=== PATIENT | male | born 1940 | race Caucasian/White ===

== ENCOUNTER 2021-10-06 10:06 | Oncology outpatient (recurring) (ONCR) | payer MEDICARE, OTHER, SELFPAY | END 2021-10-06 23:59 | disposition home or self-care (01) | PROVIDERS: PCP Family Medicine; Visit Provider Internal Medicine Hematology & Oncology | DX: C67.8 Malignant neoplasm of overlapping sites of bladder (principal); C77.5 Secondary and unspecified malignant neoplasm of intrapelvic lymph nodes; R53.83 Other fatigue; Z79.899 Other long term (current) drug therapy | CPT/HCPCS: 99205 ==

== ENCOUNTER 2022-01-06 09:57 | Oncology outpatient (recurring) (ONCR) | payer MEDICARE, OTHER, SELFPAY ==
[2021-12-16 08:42] VITALS: BMI 28.5
[2021-12-16 08:45] LABS: Basophils % 0.6 %; Eosinophils # 0.2 10^3/uL (0.0-0.8); Eosinophils % 3.8 %; Hematocrit 41.9 % (42.0-52.0); Hemoglobin 12.9 g/dL (11.7-16.6); Lymphocytes # 1.6 10^3/uL (0.8-4.8); Lymphocytes % 31.9 %; Mean Corpuscular HGB Conc 30.8 g/dL (30.0-36.0); Mean Corpuscular Hemoglobin 29.5 pg (28.0-34.0); Mean Corpuscular Volume 95.9 fl (80-94); Mean Platelet Volume 9.8 fL (7.4-10.4); Monocytes # 0.6 10^3/uL (0.2-0.9); Monocytes % 11.6 %; Neutrophils # 2.57 10^3/uL (1.8-7.7); Neutrophils % 51.7 %; Nucleated Red Blood Cells % 0 %; Platelet Count 148 10^3/cmm (130-400); Red Blood Count 4.37 10^6/uL (4.1-5.3); Red Cell Distribution Width 12.4 % (12.1-15.1)
[2021-12-16 09:22] LABS: Alanine Aminotransferase 10 U/L (0-41); Albumin Level 3.3 g/dL (3.5-5.2); Alkaline Phosphatase 137 U/L (40-130); Aspartate Amino Transferase 11 U/L (0-40); Blood Urea Nitrogen 13 mg/dL (8-23); Calcium 8.9 mg/dL (8.5-10.5); Carbon Dioxide 32 mmol/L (22-29); Chloride 99 mmol/L (98-107); Globulin 3.4 g/dL (1.3-4.6); Glucose 152 mg/dL (65-115); Osmolality Calculated 283 mOsm/kg (285-295); Sodium 135 mmol/L (136-145); Thyroid Stimulating Hormone 19.98 uIU/mL (0.27-4.20); Total Bilirubin 0.3 mg/dL (0.15-1.2); Total Protein 6.7 g/dL (6.6-8.7)
--- NOTE | 2021-12-16 11:04 | N.ONRAD NP_ITS ---
Radiation Oncology Consultation Patient Name: Darius oKwalski Date of : 1940 Date of Service: 12/16/2021 Attending Physician: Arturo De Leon M.D. Darius Kowalski was seen in consultation this morning at the request of Brionna Macias M.D. for consideration of palliative radiotherapy for the management of a previously diagnosed bladder cancer. 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 A repeat urethral resection of the bladder tumor completed in February of 2018 reported muscle invasive disease. 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 A partial cystectomy was performed on July 16, 2018 ([id number]). A surveillance cystoscopy completed in January 2021 was suspicious for recurrence. A CT urogram identified lateral wall thickening and left pelvic lymphadenopathy. A staging PET scan ordered in March 2021 confirmed hypermetabolic activity in the left kenji-pelvis. He was prescribed carboplatin and gemcitabine between the dates of April 30, 2021 through July 27, 2021 at [facility] in [place], [place]. A repeat PET scan requested in July described no response therapy and Bavencio was started in August 2021. A surveillance PET scan (independently reviewed in [facility]) obtained on October 17, 2021 identified hypermetabolic activity in the left aspect of the sacrum with associated erosion of the anterior cortex (SUV 15.2). He was evaluated for palliative radiotherapy to the sacral metastasis. I would recommend a two-week course of palliative radiotherapy. Prior to beginning treatment, a planning CT scan will be acquired to delineate the clinical target volume. The potential toxicities of pelvic radiotherapy were reviewed. Patient has verbalized understanding like to proceed as recommended. The patient's medical treatment plan has been discussed with Brionna Macias M.D. Signed by: Dr. Arturo De Leon 12/16/2021 11:03:29 AM
--- NOTE | 2022-01-02 | CT_ITS ---
Radiation Therapy Planning CT images; total exam DLP: 966.12 mGy-cm MTDD
== END 2022-01-06 23:59 | disposition home or self-care (01) ==
PROVIDERS: Nurse Practitioner; Family Provider Family Medicine; PCP Family Medicine; Visit Provider Radiology Radiation Oncology
DX: Z51.0 Encounter for antineoplastic radiation therapy (principal); C67.8 Malignant neoplasm of overlapping sites of bladder; C77.8 Secondary and unspecified malignant neoplasm of lymph nodes of multiple regions; C79.51 Secondary malignant neoplasm of bone; R53.83 Other fatigue
CPT/HCPCS: 36591; 77290; 77295; 77300; 77334; 77387; 77412; 80053; 84443; 85025; 99205; 99214

== ENCOUNTER 2022-01-26 09:00 | Oncology outpatient (recurring) (ONCR) | payer MEDICARE, OTHER, SELFPAY ==
--- NOTE | 2022-01-10 14:06 | ONCRAD TMN_ITS ---
Radiation Oncology Treatment Management Note Patient Name: Darius Kowalski Date of : 1940 Date of Service: 01/10/2022 Attending Physician: Arturo De Leon M.D. Darius Menjivar is an 81 year-old white male of diagnosed with metastatic bladder cancer. 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 A repeat urethral resection of the bladder tumor completed in February of 2018 reported muscle invasive disease. 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 A partial cystectomy was performed on July 16, 2018 (pT2BN0). A surveillance cystoscopy completed in January 2021 was suspicious for recurrence. A CT urogram identified lateral wall thickening and left pelvic lymphadenopathy. A staging PET scan ordered in March 2021 confirmed hypermetabolic activity in the left kenji-pelvis. He was prescribed carboplatin and gemcitabine between the dates of April 30, 2021 through July 27, 2021 at [facility] in [place], [place]. A repeat PET scan requested in July described no response therapy and Bavencio was started in August 2021. A surveillance PET scan obtained on October 17, 2021 identified hypermetabolic activity in the left aspect of the sacrum with associated erosion of the anterior cortex (SUV 15.2). The patient has received 15 Gy of a prescribed 30 Gy with a 3D-INDUSTRIAL INSULATOR plan utilizing LPO/RPO wedge pair portal betancourt. Upon review of systems, his pain is controlled with a Percocet daily. On physical examination, the patient weighed 165 lbs. His temperature was 97.9 ???F and the blood pressure was 104/43 mmHg. The pulse was 77 bpm and his respiratory rate was 18. There was no erythema within the treatment betancourt. Continue palliative radiotherapy as prescribed. Signed by: Dr. Arturo De Leon 01/17/2022 1:48:33 PM
--- NOTE | 2022-01-17 13:45 | N.ONRD TS_ITS ---
Radiation OncologyTreatment Summary Patient Name: Darius Kowalski Date of : 1940 Date of Service: 01/17/2022 Attending Physician: Arturo De Leon M.D. Darius Kowalski has completed palliative radiation therapy for the management of metastatic bladder cancer. 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 A repeat urethral resection of the bladder tumor completed in February of 2018 reported muscle invasive disease. 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 A partial cystectomy was performed on July 16, 2018 (pT2BN0). A surveillance cystoscopy completed in January 2021 was suspicious for recurrence. A CT urogram identified lateral wall thickening and left pelvic lymphadenopathy. A staging PET scan ordered in March 2021 confirmed hypermetabolic activity in the left kenji-pelvis. He was prescribed carboplatin and gemcitabine between the dates of April 30, 2021 through July 27, 2021 at [facility] in [place], [place]. A repeat PET scan requested in July described no response therapy and Bavencio was started in August 2021. A surveillance PET scan obtained on October 17, 2021 identified hypermetabolic activity in the left aspect of the sacrum with associated erosion of the anterior cortex (SUV 15.2). Daily radiotherapy was administered between the dates of January 04, 2022 through January 17. A prescribed dose of 30 Gy was delivered in 10 fractions encompassing 15 elapsed days. The sacrum and lymph node mass were treated utilizing a 3-dimensional conformal radiotherapy plan with an LPO/RPO wedge pair field design. The LPO/RPO wedge pair betancourt were designed with a gantry angles of 140??? and 230??? and an enhanced dynamic wedge of 45???. The LPO field measured 6 cm x 6 cm within the X-direction and 8 cm x 8 cm within the Y-direction. The measured SSD was 89.5 cm. The field allocated 241 monitor units. The RPO field measured 6 cm x 6 cm within the X-direction and 7 cm x 7 cm within the Y-direction. The SSD measured 87.9 cm. The port apportioned 241 monitor units. All treatments were performed with the [employer] linear accelerator and an isocentric technique. The dose was calculated by Anisotropic Analytic Algorithm. A photon energy of 15 MV was prescribed with the plan normalized to deliver 100% of the prescription dose to 95% of the planning target volume. Signed by: Dr. Arturo De Leon 01/17/2022 1:44:14 PM
--- NOTE | 2022-01-17 14:23 | ONCRAD TMN_ITS ---
Radiation Oncology Treatment Management Note Patient Name: Darius Kowalski Date of : 1940 Date of Service: 01/17/2022 Attending Physician: Arturo De Leon M.D. Darius Menjivar is an 81 year-old white male of diagnosed with metastatic bladder cancer. 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 A repeat urethral resection of the bladder tumor completed in February of 2018 reported muscle invasive disease. 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 A partial cystectomy was performed on July 16, 2018 (pT2BN0). A surveillance cystoscopy completed in January 2021 was suspicious for recurrence. A CT urogram identified lateral wall thickening and left pelvic lymphadenopathy. A staging PET scan ordered in March 2021 confirmed hypermetabolic activity in the left kenji-pelvis. He was prescribed carboplatin and gemcitabine between the dates of April 30, 2021 through July 27, [address] [facility] in [place], [place]. A repeat PET scan requested in July described no response therapy and Bavencio was started in August 2021. A surveillance PET scan obtained on October 17, 2021 identified hypermetabolic activity in the left aspect of the sacrum with associated erosion of the anterior cortex (SUV 15.2). The patient has received 30 Gy of a prescribed 30 Gy with a 3D-LENS INSERTER plan utilizing LPO/RPO wedge pair portal betancourt. Upon review of systems, the pain has significantly reduced. On physical examination, the patient weighed 163 lbs. His temperature was 98.4 ???F and the blood pressure was 95/57 mmHg. The pulse was 80 bpm and his respiratory rate was 16. There was no erythema within the treatment betancourt. Palliative radiotherapy has been completed. Signed by: Dr. Arturo De Leon 01/17/2022 2:22:49 PM
[2022-01-19 10:12] LABS: Basophils % 0.4 %; Eosinophils # 0.2 10^3/uL (0.0-0.8); Eosinophils % 4.2 %; Hematocrit 38.9 % (42.0-52.0); Hemoglobin 12.3 g/dL (11.7-16.6); Lymphocytes # 0.7 10^3/uL (0.8-4.8); Mean Corpuscular HGB Conc 31.6 g/dL (30.0-36.0); Mean Corpuscular Hemoglobin 30.3 pg (28.0-34.0); Mean Corpuscular Volume 95.8 fl (80-94); Mean Platelet Volume 10.2 fL (7.4-10.4); Monocytes # 0.6 10^3/uL (0.2-0.9); Neutrophils # 2.92 10^3/uL (1.8-7.7); Neutrophils % 65.2 %; Nucleated Red Blood Cells % 0 %; Platelet Count 164 10^3/cmm (130-400); Red Blood Count 4.06 10^6/uL (4.1-5.3); White Blood Count 4.5 10^3/uL (4.0-10.0)
[2022-01-19 10:45] LABS: Alanine Aminotransferase 9 U/L (0-41); Albumin Level 3.2 g/dL (3.5-5.2); Alkaline Phosphatase 102 U/L (40-130); Anion Gap 10.2 (5-19); Aspartate Amino Transferase 13 U/L (0-40); Blood Urea Nitrogen 13 mg/dL (8-23); Calcium 8.8 mg/dL (8.5-10.5); Carbon Dioxide 33 mmol/L (22-29); Chloride 93 mmol/L (98-107); Globulin 3.5 g/dL (1.3-4.6); Glucose 256 mg/dL (65-115); Immunoglobulin IGG 1445 mg/dL (700-1600); Osmolality Calculated 283 mOsm/kg (285-295); Potassium 4.2 mmol/L (3.5-5.1); Sodium 132 mmol/L (136-145); Thyroid Stimulating Hormone 3.86 uIU/mL (0.27-4.20); Total Bilirubin 0.6 mg/dL (0.15-1.2); Total Protein 6.7 g/dL (6.6-8.7)
[2022-01-19 10:49] LABS: Hepatitis A Antibody IgM Non-Reactive (Nonreactive); Hepatitis B Core AB, Total Non-Reactive (Nonreactive); Hepatitis B Surface AB 3.5 (11.5-1000); Hepatitis B Surface Antigen Non-Reactive (Nonreactive); Hepatitis C Virus Antibody Non-Reactive (Nonreactive)
[2022-01-19 11:35] LABS: Magnesium 1.8 mg/dL (1.7-2.3)
[2022-01-26 10:00] VITALS: BMI 26.9
[2022-01-26 10:00] LABS: Basophils # 0.1 10^3/uL (0.0-0.1); Basophils % 0.9 %; Eosinophils # 0.1 10^3/uL (0.0-0.8); Eosinophils % 2.6 %; Hematocrit 40.8 % (42.0-52.0); Lymphocytes # 0.8 10^3/uL (0.8-4.8); Lymphocytes % 14.7 %; Mean Corpuscular HGB Conc 31.9 g/dL (30.0-36.0); Mean Corpuscular Hemoglobin 30.3 pg (28.0-34.0); Mean Corpuscular Volume 95.1 fl (80-94); Mean Platelet Volume 9.8 fL (7.4-10.4); Monocytes # 0.7 10^3/uL (0.2-0.9); Neutrophils # 3.73 10^3/uL (1.8-7.7); Neutrophils % 68.3 %; Nucleated Red Blood Cells % 0 %; Platelet Count 200 10^3/cmm (130-400); Red Blood Count 4.29 10^6/uL (4.1-5.3); White Blood Count 5.5 10^3/uL (4.0-10.0)
[2022-01-26 10:36] LABS: Alanine Aminotransferase 9 U/L (0-41); Albumin Level 3.3 g/dL (3.5-5.2); Alkaline Phosphatase 92 U/L (40-130); Anion Gap 11.1 (5-19); Aspartate Amino Transferase 10 U/L (0-40); Blood Urea Nitrogen 12 mg/dL (8-23); Calcium 9.1 mg/dL (8.5-10.5); Carbon Dioxide 30 mmol/L (22-29); Chloride 96 mmol/L (98-107); Globulin 3.7 g/dL (1.3-4.6); Glucose 182 mg/dL (65-115); Osmolality Calculated 280 mOsm/kg (285-295); Potassium 4.1 mmol/L (3.5-5.1); Sodium 133 mmol/L (136-145); Thyroid Stimulating Hormone 3.34 uIU/mL (0.27-4.20); Total Bilirubin 0.4 mg/dL (0.15-1.2)
[2022-01-26] MEDS: sodium chloride 0.9% 250 ML 75 ML IV (12:21)
[2022-01-26] MEDS: pembrolizumab 200 MG in sodium chloride 0.9% 250 ML 516 MG IV (12:43)
[2022-01-26] MEDS: denosumab 120 mg SDV SUBCUT (13:25)
== END 2022-01-27 09:26 | disposition home or self-care (01) ==
PROVIDERS: Internal Medicine Hematology & Oncology; PCP Family Medicine; Visit Provider Radiology Radiation Oncology
DX: C67.9 Malignant neoplasm of bladder, unspecified (principal); C77.5 Secondary and unspecified malignant neoplasm of intrapelvic lymph nodes; Z51.12 Encounter for antineoplastic immunotherapy; Z51.0 Encounter for antineoplastic radiation therapy; Z87.891 Personal history of nicotine dependence; E03.9 Hypothyroidism, unspecified; R19.7 Diarrhea, unspecified
CPT/HCPCS: 77336; 77387; 77412; 80053; 82784; 83735; 84443; 85025; 86705; 86706; 86709; 86803; 87340; 96372; 96401; 96413; 99213; 99214; J0897; J7050; J9271

== ENCOUNTER 2022-02-16 08:58 | Oncology outpatient (recurring) (ONCR) | payer MEDICARE, OTHER, SELFPAY ==
[2022-02-16 09:44] LABS: Basophils % 0.7 %; Eosinophils # 0.2 10^3/uL (0.0-0.8); Eosinophils % 4.5 %; Hematocrit 42.1 % (42.0-52.0); Lymphocytes % 23.7 %; Mean Corpuscular HGB Conc 30.9 g/dL (30.0-36.0); Mean Corpuscular Hemoglobin 29.9 pg (28.0-34.0); Mean Corpuscular Volume 96.8 fl (80-94); Mean Platelet Volume 9.9 fL (7.4-10.4); Monocytes # 0.5 10^3/uL (0.2-0.9); Monocytes % 13.5 %; Neutrophils % 57.4 %; Nucleated Red Blood Cells % 0 %; Platelet Count 162 10^3/cmm (130-400); Red Blood Count 4.35 10^6/uL (4.1-5.3); Red Cell Distribution Width 13.5 % (12.1-15.1)
[2022-02-16 10:04] LABS: Alanine Aminotransferase 10 U/L (0-41); Albumin Level 3.5 g/dL (3.5-5.2); Alkaline Phosphatase 102 U/L (40-130); Anion Gap 9.2 (5-19); Aspartate Amino Transferase 11 U/L (0-40); Blood Urea Nitrogen 12 mg/dL (8-23); Calcium 8.7 mg/dL (8.5-10.5); Carbon Dioxide 30 mmol/L (22-29); Chloride 100 mmol/L (98-107); Globulin 3.3 g/dL (1.3-4.6); Glucose 170 mg/dL (65-115); Osmolality Calculated 284 mOsm/kg (285-295); Potassium 4.2 mmol/L (3.5-5.1); Sodium 135 mmol/L (136-145); Thyroid Stimulating Hormone 4.45 uIU/mL (0.27-4.20); Total Bilirubin 0.3 mg/dL (0.15-1.2); Total Protein 6.8 g/dL (6.6-8.7)
[2022-02-16] MEDS: sodium chloride 0.9% 250 ML 75 ML IV (11:28)
[2022-02-16] MEDS: pembrolizumab 200 MG in sodium chloride 0.9% 250 ML 516 MG IV (11:53)
[2022-02-16 12:44] VITALS: BP 124/69; PULSE 77; RESP 18; TEMP 36.8; O2SAT 96
== END 2022-03-08 23:59 | disposition home or self-care (01) ==
PROVIDERS: Internal Medicine Hematology & Oncology; PCP Family Medicine; Visit Provider Radiology Radiation Oncology
DX: Z51.12 Encounter for antineoplastic immunotherapy; C67.8 Malignant neoplasm of overlapping sites of bladder; C77.8 Secondary and unspecified malignant neoplasm of lymph nodes of multiple regions; C79.51 Secondary malignant neoplasm of bone; M54.50 Low back pain, unspecified; M25.552 Pain in left hip; E03.9 Hypothyroidism, unspecified; Z79.899 Other long term (current) drug therapy; Z87.891 Personal history of nicotine dependence
CPT/HCPCS: 80053; 84443; 85025; 96413; 99214; J7050; J9271

== ENCOUNTER 2022-03-30 07:30 | Oncology outpatient (recurring) (ONCR) | payer MEDICARE, OTHER, SELFPAY ==
[2022-03-09 11:37] LABS: Basophils # 0.1 10^3/uL (0.0-0.1); Eosinophils # 0.2 10^3/uL (0.0-0.8); Eosinophils % 3.4 %; Hematocrit 43.3 % (42.0-52.0); Hemoglobin 13.5 g/dL (11.7-16.6); Lymphocytes # 1.3 10^3/uL (0.8-4.8); Lymphocytes % 26.5 %; Mean Corpuscular HGB Conc 31.2 g/dL (30.0-36.0); Mean Corpuscular Hemoglobin 30.2 pg (28.0-34.0); Mean Corpuscular Volume 96.9 fl (80-94); Mean Platelet Volume 9.6 fL (7.4-10.4); Monocytes # 0.6 10^3/uL (0.2-0.9); Neutrophils # 2.83 10^3/uL (1.8-7.7); Neutrophils % 56.7 %; Nucleated Red Blood Cells % 0 %; Platelet Count 141 10^3/cmm (130-400); Red Blood Count 4.47 10^6/uL (4.1-5.3); Red Cell Distribution Width 13.3 % (12.1-15.1)
[2022-03-09 12:05] LABS: Alanine Aminotransferase 10 U/L (0-41); Albumin Level 3.5 g/dL (3.5-5.2); Alkaline Phosphatase 89 U/L (40-130); Anion Gap 10.2 (5-19); Aspartate Amino Transferase 10 U/L (0-40); Blood Urea Nitrogen 11 mg/dL (8-23); Calcium 8.8 mg/dL (8.5-10.5); Carbon Dioxide 31 mmol/L (22-29); Chloride 99 mmol/L (98-107); Globulin 3.4 g/dL (1.3-4.6); Glucose 166 mg/dL (65-115); Osmolality Calculated 285 mOsm/kg (285-295); Potassium 4.2 mmol/L (3.5-5.1); Sodium 136 mmol/L (136-145); Thyroid Stimulating Hormone 4.83 uIU/mL (0.27-4.20); Total Bilirubin 0.3 mg/dL (0.15-1.2); Total Protein 6.9 g/dL (6.6-8.7)
[2022-03-09] MEDS: pembrolizumab 200 MG in sodium chloride 0.9% 250 ML 516 MG IV (14:17)
[2022-03-09 15:10] VITALS: BP 121/74; PULSE 84; RESP 18; TEMP 36.2; O2SAT 96
== END 2022-04-08 23:59 | disposition home or self-care (01) ==
PROVIDERS: Internal Medicine Hematology & Oncology; PCP Family Medicine; Visit Provider Radiology Radiation Oncology
DX: C67.8 Malignant neoplasm of overlapping sites of bladder (principal)
CPT/HCPCS: 80053; 84443; 85025; 96413; 99214; J7050; J9271

== ENCOUNTER → 2022-04-11 15:58 | Outpatient (BNVA) | payer MEDICARE, OTHER, SELFPAY | PROVIDERS: PCP Family Medicine; Visit Provider Orthopaedic Surgery | DX: M48.062 Spinal stenosis, lumbar region with neurogenic claudication (principal); M81.0 Age-related osteoporosis without current pathological fracture; M41.9 Scoliosis, unspecified; M48.02 Spinal stenosis, cervical region; M99.53 Intervertebral disc stenosis of neural canal of lumbar region | CPT/HCPCS: 72050; 72070; 72110; 99204 ==

== ENCOUNTER 2022-04-13 08:13 | Oncology outpatient (recurring) (ONCR) | payer MEDICARE, OTHER, SELFPAY ==
[2022-04-13 08:41] LABS: Basophils % 0.3 %; Eosinophils % 0.2 %; Hematocrit 43.9 % (42.0-52.0); Hemoglobin 13.8 g/dL (11.7-16.6); Lymphocytes # 0.8 10^3/uL (0.8-4.8); Lymphocytes % 13.3 %; Mean Corpuscular HGB Conc 31.4 g/dL (30.0-36.0); Mean Corpuscular Volume 95.4 fl (80-94); Mean Platelet Volume 9.6 fL (7.4-10.4); Monocytes # 0.1 10^3/uL (0.2-0.9); Monocytes % 1.6 %; Neutrophils # 4.89 10^3/uL (1.8-7.7); Neutrophils % 84.3 %; Nucleated Red Blood Cells % 0 %; Platelet Count 227 10^3/cmm (130-400); Red Cell Distribution Width 12.9 % (12.1-15.1); White Blood Count 5.8 10^3/uL (4.0-10.0)
[2022-04-13 09:06] LABS: Alanine Aminotransferase 8 U/L (0-41); Albumin Level 3.4 g/dL (3.5-5.2); Alkaline Phosphatase 82 U/L (40-130); Anion Gap 11.4 (5-19); Aspartate Amino Transferase 10 U/L (0-40); Blood Urea Nitrogen 12 mg/dL (8-23); Calcium 9.1 mg/dL (8.5-10.5); Carbon Dioxide 29 mmol/L (22-29); Chloride 97 mmol/L (98-107); Glucose 201 mg/dL (65-115); Osmolality Calculated 281 mOsm/kg (285-295); Potassium 4.4 mmol/L (3.5-5.1); Sodium 133 mmol/L (136-145); Total Bilirubin 0.4 mg/dL (0.15-1.2); Total Protein 7.4 g/dL (6.6-8.7)
[2022-04-13] MEDS: pembrolizumab 200 MG in sodium chloride 0.9% 250 ML 516 MG IV (10:40)
[2022-04-13 11:30] VITALS: BP 134/78; PULSE 80; RESP 16; TEMP 36.6; O2SAT 98
== END 2022-05-09 23:59 | disposition home or self-care (01) ==
PROVIDERS: PCP Family Medicine; Visit Provider Internal Medicine Hematology & Oncology
DX: Z51.12 Encounter for antineoplastic immunotherapy (principal); C67.8 Malignant neoplasm of overlapping sites of bladder; C77.8 Secondary and unspecified malignant neoplasm of lymph nodes of multiple regions; Z92.3 Personal history of irradiation; M48.061 Spinal stenosis, lumbar region without neurogenic claudication; R73.9 Hyperglycemia, unspecified; Z79.52 Long term (current) use of systemic steroids; Z79.899 Other long term (current) drug therapy
CPT/HCPCS: 80053; 85025; 96413; 99214; J7050; J9271

== ENCOUNTER 2022-04-18 11:00 | Inpatient (IN) | payer MEDICARE, OTHER, SELFPAY ==
[2022-04-18] VITALS (8 sets, daily range): BP systolic 119–128; BP diastolic 65–76; PULSE 85–108; RESP 16–18; TEMP 36.8–37; O2SAT 91–95; BMI 26.6
--- NOTE | 2022-04-18 11:31 | CT_ITS ---
WS: [id number] CT LUMBAR SPINE TECHNIQUE: Noncontrast CT of the lumbar spine with coronal and sagittal reformatted images. CLINICAL INFORMATION: metastatic pain COMPARISON: PET/CT October [address] December 2021 DLP: 1301.[address] scans at [facility] use at least one of these dose optimization techniques: automated e xposure control; mA and/or kV adjustment per patient size (includes targeted exams where dose is matc hed to clinical indication); or iterative reconstruction. FINDINGS: Destructive lesion involving the LEFT hemisacrum with associated soft tissue thickening compatible wi th metastatic disease. This appears progressed from the prior PET/CT October 17, 2021. This is similar i n appearance to the radiation therapy CT January 02, 2022 with associated bony sclerosis and fragme ntation involving the LEFT aspect of the sacrum. Soft tissue thickening appears stable along the LEFT anterior sacrum. New associated bilateral sacral fractures involving the sacral ala likely insufficiency fractures. Ad ditional midline S2 anterior cortical fracture with slight step-off. Fractures through the bilateral L5 sacralized transverse processes at the pedicle. Osteopenia. Moderate bilateral hydronephrosis with bilateral ureterectasis. This appears similar but slightly pro gressed compared to the prior PET/CT October 17, 2021. Adrenal glands are normal. Abdominal aortic aneur ysm measuring 2.7 x 2.7 cm AP by transverse. CT/CT lumbar spine wo con* [id number] IMPRESSION: 1. Destructive lesion involving the LEFT aspect of the sacrum with associated soft tissue lesion is similar in appearance to the prior radiation therapy CT S [id number]. 2. New bilateral sacral fractures likely insufficiency fractures involving the RIGHT and LEFT hemisacrum and sacral ala. 3. Additional nondisplaced fracture involving the midline anterior sacrum at S 2 with cortical step-off. 4. Additional nondisplaced fractures through the bilateral L5 sacralized trans verse processes at the pedicle may be posttraumatic, pathologic, or insufficien cy fractures 5. Moderate bilateral hydronephrosis partially visualized with ureterectasis. 6. Abdominal aortic aneurysm measuring 2.7 x 2.7 cm appears stable. Notified Hayden Mahan DO at 04/18/2022 12:36 PM.
--- NOTE | 2022-04-18 11:31 | CT_ITS ---
WS: [id number] CT THORACIC SPINE TECHNIQUE: Noncontrast CT of the thoracic spine with coronal and sagittal reformatted images. CLINICAL INFORMATION: metstatic dz COMPARISON: None. DLP: 1301.[address] scans at [facility] use at least one of these dose optimization techniques: automated e xposure control; mA and/or kV adjustment per patient size (includes targeted exams where dose is matc hed to clinical indication); or iterative reconstruction. FINDINGS: Thoracic curve convex LEFT. Moderate thoracic kyphosis. Spinal canal is patent. No high-grade central canal stenosis. Aortic calcification. Coronary calcification. Splenic granulomas. Normal GE junction . Moderate chronic emphysematous changes. Slight atelectasis in the lung bases. CT/CT thoracic spin wo con* [id number] IMPRESSION: No evidence of thoracic metastatic disease.
--- NOTE | 2022-04-18 11:34 | ED_ITS ---
HPI - Back Pain/Injury General: Chief Complaint: Back Pain/Injury Stated Complaint: Back Pain Time Seen by Provider: 04/18/22 11:18 Source: patient Mode of arrival: EMS Limitations: no limitations History of Present Illness: This patient was transported to the emergency department and is at his request from his home by EMS. He states that his back pain is worsened and it is affecting his ability to do his activities of daily living and he is decided to come to the emergency department as he hopes that someone can be forced to help control his symptoms. He has a history of bladder cancer that is metastatic to nodes. He also has apparent concomitant spinal stenosis. He has had a bladder resection as well as chemotherapy for his cancer. He states that since his bladder resection he is always had to wear a diaper because of leakage of urine. He denies any fevers or chills change in his bowel and bladder habits. He anal Nitin rectal numbness or loss of bowel control. He denies any falls. He states that he does not feel like eating because of his pain. He states he was prescribed Percocet by oncology but it did not seem to help him much so he quit taking it. MD elicited complaint: back pain Pertinent past history: prior back pain and cancer Onset (ago): month(s) Timing: progressively worsening Severity: moderate Quality: dull and aching Location: lumbar spine Radiation: none Exacerbating factors: movement Associated symptoms: Deny abdominal pain, chills, dysuria, fever(s), nausea, syncope or vomiting Review of Systems Const: Denies: fever(s) or chills Eyes: Denies: change in vision ENMT: Denies: throat pain, odynophagia, nasal discharge or nasal congestion Card: Denies: chest pain, syncope or pre-syncope Resp: Denies: dyspnea, productive cough or non-productive cough GI: Denies: abdominal pain, nausea, vomiting or diarrhea : Reports: urinary incontinence (since bladder resection); Denies: flank pain, difficulty urinating or dysuria Musc: Reports: back pain Skin/Breast: Denies: rash or pruritus Neuro: Denies: headache(s), numbness in extremities or weakness in extremities PFSH ED PFSH: Medical History 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 Family History Father CAD (coronary artery disease) age 83 Diabetes Hypertension Mother Rheumatoid arthritis Other Hyperlipidemia Denies family history of Clotting disorder Dementia Psychiatric illness Chronic kidney disease (CKD) Suicide Anesthesia complication Bleeding disorder Lung disease Cancer Stroke Social History Smoking and tobacco status: former smoker (smoked x 23 years) Alcohol intake: never Physical Exam Narrative: EXAM NARRATIVE: Patient is alert appears to be comfortable makes good eye contact speech is goal-directed and thought pattern seems linear. Const: COMMON NORMALS: no acute distress, average body habitus and patient oriented x3 ORIENTATION/CONSCIOUSNESS: Yes awake HENMT: COMMON NORMALS: normocephalic, Normal nasal mucous membranes and turbinates present and moist oral mucous membranes HEAD & SCALP: normocephalic NOSE: Normal nasal mucous membranes and turbinates present Eye: COMMON NORMALS: Equal, round and reactive pupils present, EOMs intact bilaterally and conjunctivae normal CONJUNCTIVA: Yes conjunctivae normal PUPIL: Yes Equal, round and reactive pupils present Neck/C-Spine: COMMON NORMALS: full ROM, no JVD and No carotid bruits Chest: COMMONS NORMALS: normal inspection of the chest Resp: COMMON NORMALS: normal respiratory effort and clear to auscultation bilaterally AUSCULTATION: clear to auscultation bilaterally Cardio: COMMON NORMALS: no JVD, regular rate, regular rhythm, No murmurs present (Cardio) and Peripheral pulses 2+ throughout RATE: regular rate RHYTHM: regular rhythm PERIPHERAL PULSES: Peripheral pulses 2+ throughout GI: COMMON NORMALS: Normal to inspection, nondistended, normoactive bowel sounds present, Soft to palpation, non-tender and no masses PALPATION: Yes Soft to palpation : COMMON NORMALS: Yes no CVA tenderness BLADDER/KIDNEY EXAM: Yes no CVA tenderness Back/Pelvis: COMMON NORMALS: no CVA tenderness, thoracic and lumbar spine normal to inspection, no thoracic nor lumbar tenderness and straight leg raise negative bilaterally Extremity: COMMON NORMALS: normal to inspection, full ROM, capillary refill normal, no calf tenderness and no pedal edema Neuro: COMMON NORMALS: patient oriented x3, moves all extremities, no focal motor deficits and no sensory deficits noted CRANIAL NERVES: Yes CN normal except as noted SPEECH: speech normal Psych: COMMON NORMALS: mental status grossly normal and cooperative Skin: COMMON NORMALS: no rashes or lesions noted and turgor normal GENERAL SKIN EXAM: no rashes or lesions noted and turgor normal Course Reevaluation(s): Reevaluation #1: Bedside ultrasound was used to visualize urinary bladder. It appeared to have approximately 200 mL of clear fluid. No evidence of significant distention etc. Time: 11:42 Reevaluation #2: Significant pathologic and insufficient see fractures of his pelvis and sacrum. Will consult with oncology as well as orthopedic surgery. Time: 13:00 Reevaluation #3: I discussed findings with the patient and spouse regarding his fractures and the need for repair. We discussed treatment options to include transfer to a higher level of care versus potential for surgical fixation at this facility. He voiced understanding and prefers to stay locally if possible. I had previously discussed discussed with Dr. Jarvis and I again revisited this issue with Dr. Stephens who agreed to consult and evaluate the patient for treatment. I also discussed with the attending hospitalist who agreed to admit the patient. Time: 15:28 Consultations: Consultation #1: Discussed with Dr. Jarvis orthopedics. Reviewed potential for stabilizing his pelvis however we need to discuss with oncology regarding long-term prognosis. Time: 13:48 Vital Signs: Vital signs: Vital Signs Temperature 98.2 F 04/18/22 11:02 Pulse Rate 98 04/18/22 11:02 Respiratory Rate 16 04/18/22 11:58 Blood Pressure 120/76 04/18/22 11:02 Pulse Oximetry 95 04/18/22 11:02 Oxygen Delivery Me thod 04/18/22 11:02 MDM - Back Pain/Injury Medical Decision Making Patient presented with increasing back pain over the last 2 weeks. No trauma or injury noted by patient. He does have a history of bladder cancer. Imaging today reveals insufficiency and likely pathologic fractures of his pelvis and multiple areas. These essentially are somewhat unstable and after discussion with orthopedics as well as oncology and including the patient and shared decision making it was determined the patient could be admitted to this facility for further evaluation work-up and possible fixation. Medical Records I reviewed the patient's medical records. Labs I reviewed the patient's lab results. Radiology Impressions Lumbar Spine CT 04/18/22 11:31 IMPRESSION: 1. Destructive lesion involving the LEFT aspect of the sacrum with associated soft tissue lesion is similar in appearance to the prior radiation therapy CT January 02, 2022. 2. New bilateral sacral fractures likely insufficiency fractures involving the RIGHT and LEFT hemisacrum and sacral ala. 3. Additional nondisplaced fracture involving the midline anterior sacrum at S2 with cortical step-off. 4. Additional nondisplaced fractures through the bilateral L5 sacralized transverse processes at the pedicle may be posttraumatic, pathologic, or insufficiency fractures 5. Moderate bilateral hydronephrosis partially visualized with ureterectasis. 6. Abdominal aortic aneurysm measuring 2.7 x 2.7 cm appears stable. Notified Hayden Mahan DO at 04/18/2022 12:[address] 04/18/22 11:31 IMPRESSION: No evidence of thoracic metastatic disease. Discharge Plan Discharge Patient Disposition: Admitted As Inpatient Clinical Impression: 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, Closed pelvic fracture Condition: Stable Coding Level of Care Code ED Automobile Dealer for Chg Fwd Exam Comprehensive
[2022-04-18] MEDS: morphine 4 mg/mL SDV 1 mL IM (11:58)
--- NOTE | 2022-04-18 15:06 | XRR_ITS ---
PROCEDURE INFORMATION: Exam: XR Chest Exam date and time: 04/18/2022 3:11 PM Age: 82 years old Clinical indication: Condition or disease; Other: Bladder CA; Prior surgery; Surgery type: Port TECHNIQUE: Imaging protocol: Radiologic exam of the chest. Views: 1 view. COMPARISON: CT thoracic spin wo con* [id number] 04/18/2022 11:40 AM FINDINGS: Tubes, catheters and devices: There is a right-sided chest port coursing into the right subclavian vein terminating just above the cavoatrial junction. Lungs: Unremarkable. No consolidation. Pleural spaces: Unremarkable. No pleural effusion. No pneumothorax. Heart/Mediastinum: Unremarkable. No cardiomegaly. Bones/joints: Unremarkable for age. XR/XR chest 1V portable [id number] IMPRESSION: Right-sided chest port in satisfactory position. No pneumothorax.
--- NOTE | 2022-04-18 15:07 | ECG_ITS ---
[facility] Test Date: 2022-04-18 Pat Name: Darius Kowalski Department: Room: Gender: Male Customer Marketing Intern: : 1940 Requested By: Hayden Mahan Order Number: [id number] Jon MD: Micah Arreaga M.D. Measurements Intervals [place] Rate: 96 P: 79 WA: 137 QRS: 92 QRSD: 102 T: 78 QT: 335 QTc: 423 Interpretive Statements SINUS RHYTHM BORDERLINE RIGHT AXIS DEVIATION [QRS AXIS > 90] No previous ECG available for comparison Electronically Signed On 04-18-2022 17:24:24 DRAWING TRACER by Micah Arreaga M.D. [email or web address]
[2022-04-18] MEDS: sodium chloride 0.9% 500 ML IV (16:28)
[2022-04-18 17:12] LABS: Basophils % 0.1 %; Eosinophils % 0.1 %; Hematocrit 50.9 % (42.0-52.0); Hemoglobin 16.4 g/dL (11.7-16.6); Lymphocytes % 14.5 %; Mean Corpuscular HGB Conc 32.2 g/dL (30.0-36.0); Mean Corpuscular Hemoglobin 29.9 pg (28.0-34.0); Mean Corpuscular Volume 92.9 fl (80-94); Mean Platelet Volume 9.5 fL (7.4-10.4); Monocytes # 1.7 10^3/uL (0.2-0.9); Monocytes % 12.4 %; Neutrophils # 9.91 10^3/uL (1.8-7.7); Neutrophils % 72.4 %; Nucleated Red Blood Cells % 0 %; Platelet Count 314 10^3/cmm (130-400); Red Blood Count 5.48 10^6/uL (4.1-5.3); Red Cell Distribution Width 13.2 % (12.1-15.1); White Blood Count 13.7 10^3/uL (4.0-10.0)
[2022-04-18 17:28] LABS: Alanine Aminotransferase 10 U/L (0-41); Albumin Level 3.7 g/dL (3.5-5.2); Alkaline Phosphatase 75 U/L (40-130); Anion Gap 15.2 (5-19); Aspartate Amino Transferase 14 U/L (0-40); Blood Urea Nitrogen 18 mg/dL (8-23); Calcium 9.3 mg/dL (8.5-10.5); Carbon Dioxide 28 mmol/L (22-29); Chloride 94 mmol/L (98-107); Globulin 3.6 g/dL (1.3-4.6); Glucose 143 mg/dL (65-115); Osmolality Calculated 280 mOsm/kg (285-295); Potassium 4.2 mmol/L (3.5-5.1); Sodium 133 mmol/L (136-145); Total Bilirubin 0.7 mg/dL (0.15-1.2); Total Protein 7.3 g/dL (6.6-8.7)
[2022-04-18] MEDS: morphine 4 mg/mL SDV 1 mL 1 MG IVP ×2 (19:25→23:40)
--- NOTE | 2022-04-18 19:55 | PC.NURSE ---
Pt admitted to 258 from ER. Pt completely incontinent and states that he has been down in the ER since this am and is upset that he hasn't been changed. Pt referred to Dr. English for review of pain management, pt want for maier. NO received and noted for 1) Morphine 1mg IVP q4h PRN pain 2) insert maier cath 3) collect UA. Pt and family informed of the new orders.
[2022-04-18 21:31] LABS: Bilirubin Urine Neg (Negative); Blood Urine 3+ (Negative); Glucose Urine UA Norm (Normal); Ketones Urine 1+ (Negative); Nitrate Urine Negative (Negative); Protein Urine Trace (Negative); Urine Appearance Cloudy (CLEAR); Urine Color Yellow (Yellow); Urobilinogen Urine Norm (Negative); pH Urine 6.5 (5-7)
[2022-04-18 21:32] LABS: Add Urine Culture? Yes; Add Urine Microscopic? YES; Bacteria Urine 3+ /hpf; Leukocyte Esterase Urine 2+ (Negative); RBC Urine TOO NUMEROUS TO CNT /hpf (0-2); WBC Urine TOO NUMEROUS TO CNT /hpf (0-5)
--- NOTE | 2022-04-18 22:42 | P.HP_ITS ---
Providers/Chief Complaint Admitting Physician: Milli Torres MD Primary Care Provider: Jadiel Wheat Chief Complaint: Back Pain History of Present Illness Darius Kowalski is a 82 year old male high-grade papillary urothelial carcinoma currently on treatment with 3 weekly pembrolizumab along with 3 monthly Xgeva?since January 2022. Currently no evidence of disease progression. He presented to the emergency room today due to worsening back pain over the past 2 weeks to the point where he was unable to perform his usual activities. Imaging in the emergency revealed pathologic fractures of pelvis in multiple areas. Since these are unstable plan is to proceed to surgical intervention with orthopedics. He does describe a history of fall approximately 1 month ago where he fell against a sofa and landed on the floor. Apart from the pain he denies any specific complaints at this time. Denies any chest pain dyspnea palpitations syncope Review of Systems General: Reports: 10 or more systems reviewed and unremarkable except in HPI and below Const: Denies: fever(s), chills or body aches Eyes: Denies: change in vision, blurry vision or photophobia ENMT: Reports: hoarseness; Denies: throat pain, enlarged tonsils, odynophagia or nasal congestion Card: Denies: chest pain, palpitations, irregular heart rhythm, edema, swelling of feet/ankles, lightheadedness, pre-syncope, dyspnea on exertion or orthopnea Resp: Denies: dyspnea, productive cough, non-productive cough, wheezing, stridor, pain on inspiration, change in phlegm color, hemoptysis or chest congestion GI: Denies: abdominal pain, nausea, vomiting, hematemesis, coffee ground emesis, dysphagia, heartburn, diarrhea, constipation, GI cramping, change in stool character, hematochezia or melena : Denies: flank pain, dysuria, urinary frequency, urinary urgency, urinary hesitancy or hematuria Musc: Denies: neck pain, back pain, extremity pain, joint swelling, joint warmth or deformity Neuro: Denies: headache(s), numbness in extremities, weakness in extremities, sensory changes, difficulty walking, frequent falls, dizziness, vertigo, behavioral changes, Slurred speech present or seizure-like activity Psych: Denies: anxiety, depression, suicidal ideation or homicidal ideation Endo: Denies: polyuria, polydipsia, tired all the time, cold intolerance or hot flashes Rosalio/Lymph: Denies: easy bruising or easy bleeding Medications/Allergies Home Medications Medication Instructions Recorded Confirmed Last Taken Type dorzolamide 2 % eye drops 1 drp ophthalmic (eye) BID 12/16/21 04/18/22 Unknown History gabapentin 300 mg capsule 300 mg PO BID 12/16/21 04/18/22 Unknown History glipizide 2.5 mg tablet, extended 2.5 mg PO QAM 12/16/21 04/18/22 Unknown History release 24 hr latanoprost 0.005 % eye drops 1 drp ophthalmic (eye) BEDTIME 12/16/21 04/18/22 Unknown History lisinopril 5 mg tablet 5 mg PO QAM 12/16/21 04/18/22 Unknown History lovastatin 40 mg tablet 40 mg PO QPM 12/16/21 04/18/22 Unknown History prochlorperazine maleate 10 mg 10 mg PO Q4H PRN Mild Nausea #30 01/26/22 04/18/22 Unknown Rx tablet (Compazine) tabs oxycodone-acetaminophen 5 mg-325 1 - 2 tab PO .Q4-6H PRN pain 30 04/13/22 04/18/22 Unknown Rx mg tablet (Percocet) days #60 tabs fluticasone propionate 50 2 spray intranasal DAILY PRN 04/18/22 04/18/22 Unknown History mcg/actuation nasal Allergy Symptoms spray,suspension ibuprofen 200 mg tablet 400 mg PO Q6H PRN Pain 04/18/22 04/18/22 04/17/22 History levothyroxine 50 mcg tablet 50 mcg PO QAM 04/18/22 04/18/22 Unknown History ondansetron HCl 8 mg tablet 8 mg PO Q8H PRN Nausea And Vomiting 04/18/22 04/18/22 Unknown History prednisone 20 mg tablet See Rx Instructions .Route .COMPLEX 04/18/22 04/18/22 04/17/22 History pt state has 2 tabs timolol maleate 0.5 % eye drops 1 drp ophthalmic (eye) BID 04/18/22 04/18/22 Unknown History Intraoperative Neuromonitoring #1 ea 04/19/22 Unknown Rx Allergies Allergy/AdvReac Type Severity Reaction Status Date / Time amoxicillin Allergy ALGY-Rash Verified 01/05/23 09:00 benzonatate Allergy ALGY-Rash Verified 04/13/22 09:00 Beta-Blockers Allergy ALGY-Wheezi Verified 04/13/22 09:00 (Beta-Adrenergic Bloc ng brimonidine Allergy ALGY-Swell Verified 04/13/22 09:00 Lip/Tongue/Throat guaifenesin Allergy ADR-Itching Verified 04/13/22 09:00 nitrofurantoin Allergy ALGY-Rash Verified 04/13/22 09:00 sulfamethoxazole Allergy ALGY-Rash Verified 04/13/22 09:00 [From Sulfamethoxazole-Trimethoprim] trimethoprim Allergy ALGY-Rash Verified 04/13/22 09:00 [From Sulfamethoxazole-Trimethoprim] PFSH Acute PFSH: Medical History 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 Family History Father CAD (coronary artery disease) age 83 Diabetes Hypertension Mother Rheumatoid arthritis Other Hyperlipidemia Denies family history of Clotting disorder Dementia Psychiatric illness Chronic kidney disease (CKD) Suicide Anesthesia complication Bleeding disorder Lung disease Cancer Stroke Social History Smoking and tobacco status: former smoker (smoked x 23 years) Alcohol intake: never Vitals/I&O/Wt Last Vital Signs Temp 98.6 F 04/18/22 20:00 Pulse 102 H 04/18/22 20:00 Resp 16 04/18/22 20:00 BP 128/66 04/18/22 20:00 Pulse Ox 92 04/18/22 20:00 O2 Del Method 04/18/22 20:00 04/18/22 04/18/22 04/18/22 06:59 14:59 22:59 Intake Total 500 / 500 Balance 500 / 500 Weight last 48 hrs Weight 70.307 kg Physical Exam Narrative: General: No acute distress, AO x3 HEENT: PERRLA, pupils bilaterally equal and reactive, pallors not present Chest: Normal vesicular breath sounds, no added sounds, equal good air entry bilaterally CVS: S1-S2 regular, no murmurs, no tachycardia, no gallops, no rubs Abdomen: Soft, nontender, no organomegaly, bowel sounds present Neuro: No focal deficits, no facial deformity, AO x3, power 5/5 in all limbs Urinary Catheter Management: Vincent: Cath Placed During This Visit: yes Urinary Catheter Date of Insertion: 04/18/22 Urinary Catheter Time of Insertion: 19:19 Data 04/18/22 11:12 04/18/22 11:12 Other Labs: Signed Patient: Darius Kowalski Unit #: [id number] : 1940 Age/Sex: 82 / M ADM Date: 04/18/22 Loc: ER Room/Bed: Attending Dr: Ordering Provider/Ordering MD: Hayden Mahan DO Date of Service: 04/18/22 Procedure(s): CT thoracic spin wo con* [id number] Accession Number(s): [id number] Report Number: [id number] WS: [id number] CT THORACIC SPINE TECHNIQUE: Noncontrast CT of the thoracic spine with coronal and sagittal reformatted images. CLINICAL INFORMATION: metstatic dz COMPARISON: None. DLP: 1301.[address] [facility] use at least one of these dose optimization techniques: automated exposure control; mA and/or kV adjustment per patient size (includes targeted exams where dose is matched to clinical indication); or iterative reconstruction. FINDINGS: Thoracic curve convex LEFT. Moderate thoracic kyphosis. Spinal canal is patent. No high-grade central canal stenosis. Aortic calcification. Coronary calcification. Splenic granulomas. Normal GE junction. Moderate chronic emphysematous changes. Slight atelectasis in the lung bases. CT/CT thoracic spin wo con* [id number] IMPRESSION: ? No evidence of thoracic metastatic disease. CT/CT lumbar spine wo con* [id number] IMPRESSION: ? 1.? Destructive lesion involving the LEFT aspect of the sacrum with associated soft tissue lesion is similar in appearance to the prior radiation therapy CT January 02, 2022. 2.? New bilateral sacral fractures likely insufficiency fractures involving the RIGHT and LEFT hemisacrum and sacral ala. 3.? Additional nondisplaced fracture involving the midline anterior sacrum at S2 with cortical step-off. 4.? Additional nondisplaced fractures through the bilateral L5 sacralized transverse processes at the pedicle may be posttraumatic, pathologic, or insufficiency fractures 5.? Moderate bilateral hydronephrosis partially visualized with ureterectasis. 6.? Abdominal aortic aneurysm measuring 2.7 x 2.7 cm appears stable. A&P Assessment and plan (1) Unspecified fracture of sacrum, initial encounter for closed fracture: (2) Closed pelvic fracture: (3) UTI (urinary tract infection): Plan Patient presenting today with progressively worsening back pain, found to have an unstable sacral fracture. Plan for surgical intervention tomorrow per orthopedics. Patient has a history of bladder cancer and currently this appears to be a pathological fracture. May be also contributed by steroid use recently. He denies any other current complaints such as chest pain dyspnea or palpitations, orthopnea or PND recently. No contraindication from a medical standpoint to proceed with surgical intervention. UA with multiple WBCs, negative nitrate. May be manufacturer's representative of a UTI. Patient does not rule endorse some dysuria, however uncertain if this is more related to his bladder cancer or recurrent UTI. Will obtain urine culture and use empiric ceftriaxone while awaiting culture data. Attestations Medical Necessity Statement*: Greater than 2 midnight admission is anticipated for planned surgical intervention, IV antibiotics postop care. Coding Level of Care Code Acute Greenhouse Laborer for Eber Meneses Diagnoses Unspecified fracture of sacrum, initial encounter for closed fracture S32.10XA Closed pelvic fracture S32.9XXA UTI (urinary tract infection) N39.0
--- NOTE | 2022-04-18 23:33 | PC.NURSE ---
Pt referred to Dr. English for review of UA results. Awaiting orders.
[2022-04-18] MEDS: sodium chloride 0.9% 1,000 ML 75 ML IV (23:41)
[2022-04-18] MEDS: cefTRIAXone 1,000 MG in sodium chloride 0.9% (plus) 50 ML 100 MG IV (23:52)
--- NOTE | 2022-04-18 23:55 | PC.NURSE ---
UA reviewed w/NO received and noted for 1)Rocephin 1gm IVPB q24hr. Pulled from [employer] and administered.
[2022-04-19] VITALS (15 sets, daily range): BP systolic 106–146; BP diastolic 60–78; PULSE 68–109; RESP 16–18; TEMP 36.6–36.9; O2SAT 92–97
[2022-04-19] MEDS: oxyCODONE-APAP 5-325 mg Tablet 1 TAB PO ×5 (00:59→20:35)
[2022-04-19] MEDS: morphine 4 mg/mL SDV 1 mL 1 MG IVP ×2 (05:35→09:57)
[2022-04-19] MEDS: levothyroxine 50 mcg Tablet PO (05:36)
[2022-04-19] MEDS: lisinopril 5 mg Tablet PO (05:36)
[2022-04-19 05:41] LABS: Glucose Point of Care 136 mg/dL (70-110)
[2022-04-19 05:42] LABS: Basophils % 0.2 %; Eosinophils % 0.2 %; Hematocrit 46.8 % (42.0-52.0); Hemoglobin 15.1 g/dL (11.7-16.6); Lymphocytes # 1.7 10^3/uL (0.8-4.8); Lymphocytes % 17.7 %; Mean Corpuscular HGB Conc 32.3 g/dL (30.0-36.0); Mean Platelet Volume 9.6 fL (7.4-10.4); Monocytes # 1.2 10^3/uL (0.2-0.9); Monocytes % 12.8 %; Neutrophils # 6.64 10^3/uL (1.8-7.7); Neutrophils % 68.4 %; Nucleated Red Blood Cells % 0 %; Platelet Count 222 10^3/cmm (130-400); Red Blood Count 5.03 10^6/uL (4.1-5.3); Red Cell Distribution Width 13.2 % (12.1-15.1); White Blood Count 9.7 10^3/uL (4.0-10.0)
[2022-04-19 06:09] LABS: Alanine Aminotransferase 8 U/L (0-41); Albumin Level 3.1 g/dL (3.5-5.2); Alkaline Phosphatase 63 U/L (40-130); Anion Gap 12.4 (5-19); Aspartate Amino Transferase 10 U/L (0-40); Blood Urea Nitrogen 18 mg/dL (8-23); Calcium 7.7 mg/dL (8.5-10.5); Carbon Dioxide 26 mmol/L (22-29); Chloride 99 mmol/L (98-107); Globulin 3.1 g/dL (1.3-4.6); Glucose 148 mg/dL (65-115); Osmolality Calculated 281 mOsm/kg (285-295); Potassium 4.4 mmol/L (3.5-5.1); Sodium 133 mmol/L (136-145); Total Bilirubin 0.5 mg/dL (0.15-1.2); Total Protein 6.2 g/dL (6.6-8.7)
--- NOTE | 2022-04-19 06:40 | PM.CONSULT ---
Providers/Reason For Consult Consulting Physician/Specialty*: Orthopedic spine Reason for Consult*: Low back pain Attending Physician: Milli Torres MD Primary Care Provider: Jadiel Wheat History of Present Illness History of Present Illness Darius Kowalski is a 82 year old male who presented to [facility] on 04/18/2022 with intractable low back pain. Patient has an extensive bladder cancer history. He was evaluated in room 258 with no family present after orthopedics was consulted due to his low back pain. Patient describes an event where he stumbled at home approximately 3 to 4 weeks ago where he fell against the arm of his sofa and continuing to fall down onto the sofa after that event. He describes progressive pain in his low back and buttock region that was culminating yesterday which prompted him to follow-up in the emergency room. He has had progressive weakness and pain with inability to walk or lift his left leg because of the amount of pain he is experiencing a. He describes it as sharp stabbing constant in nature. He has not found any relief sitting seems to make things worse as well as standing walking. He reports difficulty controlling his urine due to the bladder cancer history and multiple surgeries on his bladder. He denies any bowel issues. He reports weakness worse in the left leg compared to the right but both legs bother him. He ranks the pain as 7 out of 10 on the pain scale. Movement while he is laying in bed causes him increased pain primarily down the left lower extremity. He denies any loss of consciousness in the fall. Denies any neck or upper back pain. An extensive review of the patient's past medical history, surgical history, allergies, medications, family history, social history, and review of systems was completed Review of Systems Const: Denies: fever(s) or chills Eyes: Denies: change in vision ENMT: Denies: throat pain, odynophagia, nasal discharge or nasal congestion Card: Denies: chest pain, syncope or pre-syncope Resp: Denies: dyspnea, productive cough or non-productive cough GI: Denies: abdominal pain, nausea, vomiting or diarrhea : Reports: urinary incontinence (since bladder resection); Denies: flank pain, difficulty urinating or dysuria Musc: Reports: back pain Skin/Breast: Denies: rash or pruritus Neuro: Denies: headache(s), numbness in extremities or weakness in extremities Medications/Allergies Home Medications Medication Instructions Recorded Confirmed Last Taken Type dorzolamide 2 % eye drops 1 drp ophthalmic (eye) BID 12/16/21 04/18/22 Unknown History gabapentin 300 mg capsule 300 mg PO BID 12/16/21 04/18/22 Unknown History glipizide 2.5 mg tablet, extended 2.5 mg PO QAM 12/16/21 04/18/22 Unknown History release 24 hr latanoprost 0.005 % eye drops 1 drp ophthalmic (eye) BEDTIME 12/16/21 04/18/22 Unknown History lisinopril 5 mg tablet 5 mg PO QAM 12/16/21 04/18/22 Unknown History lovastatin 40 mg tablet 40 mg PO QPM 12/16/21 04/18/22 Unknown History prochlorperazine maleate 10 mg 10 mg PO Q4H PRN Mild Nausea #30 01/26/22 04/18/22 Unknown Rx tablet (Compazine) tabs oxycodone-acetaminophen 5 mg-325 1 - 2 tab PO .Q4-6H PRN pain 30 04/13/22 04/18/22 Unknown Rx mg tablet (Percocet) days #60 tabs fluticasone propionate 50 2 spray intranasal DAILY PRN 04/18/22 04/18/22 Unknown History mcg/actuation nasal Allergy Symptoms spray,suspension ibuprofen 200 mg tablet 400 mg PO Q6H PRN Pain 04/18/22 04/18/22 04/17/22 History levothyroxine 50 mcg tablet 50 mcg PO QAM 04/18/22 04/18/22 Unknown History ondansetron HCl 8 mg tablet 8 mg PO Q8H PRN Nausea And Vomiting 04/18/22 04/18/22 Unknown History prednisone 20 mg tablet See Rx Instructions .Route .COMPLEX 04/18/22 04/18/22 04/17/22 History pt state has 2 tabs timolol maleate 0.5 % eye drops 1 drp ophthalmic (eye) BID 04/18/22 04/18/22 Unknown History Allergies Allergy/AdvReac Type Severity Reaction Status Date / Time amoxicillin Allergy ALGY-Rash Verified 04/13/22 09:00 benzonatate Allergy ALGY-Rash Verified 04/13/22 09:00 Beta-Blockers Allergy ALGY-Wheezi Verified 04/13/22 09:00 (Beta-Adrenergic Bloc ng brimonidine Allergy ALGY-Swell Verified 04/13/22 09:00 Lip/Tongue/Throat guaifenesin Allergy ADR-Itching Verified 04/13/22 09:00 nitrofurantoin Allergy ALGY-Rash Verified 04/13/22 09:00 sulfamethoxazole Allergy ALGY-Rash Verified 04/13/22 09:00 [From Sulfamethoxazole-Trimethoprim] trimethoprim Allergy ALGY-Rash Verified 04/13/22 09:00 [From Sulfamethoxazole-Trimethoprim] Current Medications Generic Name Dose Route Start Last Admin Trade Name Freq PRN Reason Stop Dose Admin Sodium Chloride 1,000 mls @ 75 mls/hr 04/18/22 22:45 04/18/22 23:41 Sodium Chloride 0.9% IV 75 mls/hr .[id number] SANDY Administration Ceftriaxone Sodium 1,000 mg/ 50 mls @ 100 mls/hr 04/18/22 23:45 04/19/22 00:25 Sodium Chloride IV Infused Q24H SANDY Infusion Protocol Levothyroxine Sodium 50 mcg 04/19/22 06:00 04/19/22 05:36 Levothyroxine 50 Mcg Tablet PO 50 mcg QAM SANDY Administration Lisinopril 5 mg 04/19/22 06:00 04/19/22 05:36 Lisinopril 5 Mg Tablet PO 5 mg QAM SANDY Administration Morphine Sulfate 1 mg 04/18/22 19:18 04/19/22 05:35 Morphine 4 Mg/Ml Sdv 1 Ml IVP 1 mg Q4H PRN Administration SEVERE PAIN Oxycodone/Acetaminophen 1 tab 04/18/22 22:38 04/19/22 00:59 Oxycodone-Apap 5-325 Mg Tablet PO 1 tab .Q4-6H PRN Administration pain PFSH Acute PFSH: Medical History 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 Family History Father CAD (coronary artery disease) age 83 Diabetes Hypertension Mother Rheumatoid arthritis Other Hyperlipidemia Denies family history of Clotting disorder Dementia Psychiatric illness Chronic kidney disease (CKD) Suicide Anesthesia complication Bleeding disorder Lung disease Cancer Stroke Social History Smoking and tobacco status: former smoker (smoked x 23 years) Alcohol intake: never Vitals/I&O/Wt Last Vital Signs Temp 98.4 F 04/19/22 04:00 Pulse 86 04/19/22 06:25 Resp 16 04/19/22 05:35 BP 146/78 04/19/22 04:00 Pulse Ox 95 04/19/22 04:00 O2 Del Method 04/19/22 04:00 04/18/22 04/18/22 04/19/22 14:59 22:59 06:59 Intake Total 500 / 500 50 / 550 Output Total 300 / 300 Balance 200 / 200 50 / 250 Weight last 48 hrs Weight 155 lb Physical Exam Narrative: Patient is alert orient x3 has a good general appearance normal mood and affect. Patient was evaluated in room 258 with no family present laying supine in the bed. Appears comfortable. Moderate palpatory and percussion pain throughout the paraspinous musculature of the lumbar spine. Normal sensation to light touch through all dermatomal layers. Normal sensation light touch down both lower extremities with 4/5 motor strength throughout all motor groups. Moderate palpable pain over the SI joints bilaterally. Positive straight leg raise bilaterally worse on the left than the right. Positive logroll worse on the left than the right. skin is clear warm with normal sensation to light touch, calves are supple with no medial thigh tenderness, negative Homans' sign. No palpable lymphadenopathy bilaterally. Reflexes are 1+ and symmetric about the knees and Achilles. Dorsalis pedis and posterior tibial pulses are 1+. No palpable edema bilaterally. HENMT: COMMON NORMALS: normocephalic and atraumatic HEAD & SCALP: normocephalic and atraumatic Resp: COMMON NORMALS: normal respiratory effort Cardio: COMMON NORMALS: regular rate and regular rhythm RATE: regular rate RHYTHM: regular rhythm GI: COMMON NORMALS: Soft to palpation and non-tender PALPATION: Yes Soft to palpation : COMMON NORMALS: Yes no CVA tenderness BLADDER/KIDNEY EXAM: Yes no CVA tenderness Back/Pelvis: COMMON NORMALS: no CVA tenderness Psych: COMMON NORMALS: mental status grossly normal and cooperative Urinary Catheter Management: Vincent: Cath Placed During This Visit: yes Reason for Continuing Indwelling Catheter: Required Immobilization for Trauma or Surgery or Anesthesia Urinary Catheter Date of Insertion: 04/18/22 Urinary Catheter Time of Insertion: 19:19 Data 04/19/22 05:02 04/19/22 05:[address]: Radiologist's impression: CT/CT lumbar spine wo con* [id number] IMPRESSION: ? 1.? Destructive lesion involving the LEFT aspect of the sacrum with associated soft tissue lesion is similar in appearance to the prior radiation therapy CT January 02, 2022. 2.? New bilateral sacral fractures likely insufficiency fractures involving the RIGHT and LEFT hemisacrum and sacral ala. 3.? Additional nondisplaced fracture involving the midline anterior sacrum at S2 with cortical step-off. 4.? Additional nondisplaced fractures through the bilateral L5 sacralized transverse processes at the pedicle may be posttraumatic, pathologic, or insufficiency fractures 5.? Moderate bilateral hydronephrosis partially visualized with ureterectasis. 6.? Abdominal aortic aneurysm measuring 2.7 x 2.7 cm appears stable. 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 Given the bladder cancer history would recommend a CT scan of the pelvis with and without contrast. We will keep the patient nonweightbearing. Discussed this at length with Dr. Stephens he agrees with the above-stated plan. Following the CT scan of the pelvis gain a better understanding of treatment course. Discussed this at length with the patient he understands. More than 50% of the time spent with the patient today involved coordination of care, counseling and discussion of conservative versus surgical treatment options. Total amount of time spent with the patient was 33 minutes. 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
--- NOTE | 2022-04-19 06:53 | CT_ITS ---
WS: [id number] NONCONTRAST AND CONTRAST-ENHANCED CT PELVIS INDICATION: Sacral fractures bladder cancer COMPARISON: CT lumbar April 18, 2022 TECHNIQUE: Noncontrast and contrast-enhanced CT of the pelvis. Coronal and sagittal reformatted image s. FINDINGS: Again seen is the destructive metastatic lesion involving the LEFT hemisacrum with associat ed soft tissue thickening. Presumably this has been treated with radiation. Again this appears progre ssed from the prior PET/CT October 17, 2021. This is similar in appearance to the radiation therapy CT S eptember 2021 with associated bony sclerosis and fragmentation involving the LEFT aspect of the s acrum. Slight associated soft tissue thickening and edema LEFT anterior sacrum. Diffuse presacral edema. New associated bilateral sacral fractures involving the sacral ala likely insufficiency fractures. Addit ional midline S2 anterior cortical fracture with cortical step off. Additional fractures through the bilateral L5 sacralized transverse processes extending to the pedicl e. This is new from the prior radiation therapy CT. Osteopenia. Diffuse presacral soft tissue edema. Diffuse bladder wall thickening with air-fluid level. Calcifications involving the bladder wall. Hist ory of bladder carcinoma. Vincent catheter. Air-fluid level in the bladder. Fat-containing umbilical he rnia. Fat-containing LEFT greater than RIGHT inguinal hernias. Adrenal glands are normal. Abdominal a ortic aneurysm measuring 2.7 x 2.7 cm AP by transverse. Sigmoid diverticulosis. CT/CT pelvis wo/w con [id number] IMPRESSION: 1. Destructive previously treated metastatic lesion involving the LEFT aspect of the sacrum with associated soft tissue edema described above. 2. Bilateral sacral insufficiency fractures 3. Additional nondisplaced fracture involving the midline anterior sacrum at S 2 best seen on the sagittal imaging. 4. Additional new nondisplaced fractures through the bilateral L5 sacralized t ransverse processes extending to the pedicles bilaterally.
[2022-04-19] MEDS: pantoprazole DR 40 mg Tablet PO (08:40)
[2022-04-19] MEDS: predniSONE 20 mg Tablet PO (08:40)
[2022-04-19] MEDS: gabapentin 300 mg Capsule PO ×2 (08:41→17:40)
[2022-04-19] MEDS: iohexol 350 mg/mL 500 mL Btl (per mL) IV (09:14)
--- NOTE | 2022-04-19 10:21 | PC.CHAP ---
Pastoral Care Encounter/Spiritual Assessment Type of Contact [] Declined field services director visit [] Patient/Family/Request visit [] Outpatient visit [] Follow-up visit [] Physician referral [] Code/Alert [x] Routine visit [] Staff referral [] Actively dying [] Patient sleeping [] Family support [] [] Out of room [] Palliative care [] [] Receiving care in room [] Pre-surgical visit [] Trauma [] Long length of stay [] ICU visit [] Other: Relational/Emotional Strength [x] Patient feels connected with others/family/visitors/staff [] Distress [] Loneliness/isolation [] Abandonment Spirituality of Patient [x] Person of Reny [x] Attends Moravian of their Ren[place] [x] Believes in Prayer [x] Reads Bible or Hoahaoism materials [] There are Spiritual issues to be addressed Room Service Supervisor Interventions [x Prayer x[] Active listening [x] Non-anxious presence [x] Spiritual/emotional support [] Crisis/trauma care [] Spiritual counseling [] Bereavement support [] Provided bereavement packet [] Provided Bible/devotional materials [] Provided toy/stuffed animal, coloring book to patient or family member [] Provided Communion [] Anointing/Barto [] Salvation [x] Completed spiritual assessment [] Other: Impact on Illness or Injury [] Angry [] Fearful [] Anxious [] Often cries [] Exhaustion [] Unable to work [] Unable to attend buddhism [] Unable to walk/stand [] Unable to read [] Unable to drive [] Unable to eat/drink [] Unable to sleep [] Unable to be with family [] Patient intubated [] Other: Summary patient has pain Time spent with patient 10 min
[2022-04-19] MEDS: timolol 0.5% Op Soln 5 mL Btl 1 DROP EYE-BOTH ×2 (10:56→17:44)
[2022-04-19 11:20] LABS: Glucose Point of Care 155 mg/dL (70-110)
[2022-04-19] MEDS: sodium chloride 0.9% 1,000 ML 75 ML IV (16:45)
[2022-04-19 17:27] LABS: Glucose Point of Care 193 mg/dL (70-110)
[2022-04-19] MEDS: atorvastatin 40 mg Tablet 20 MG PO (17:41)
[2022-04-19] MEDS: insulin lispro 100 unit/1 mL SUBCUT (17:46)
--- NOTE | 2022-04-19 19:12 | PM.PN ---
Subjective Subjective: Seen and examined earlier this morning. No new complaints. CT of the pelvis was completed earlier this morning. Plan for surgical intervention tomorrow. Vitals/I&O/Wt Last Vital Signs Temp 98.3 F 04/19/22 16:00 Pulse 77 04/19/22 16:00 Resp 17 04/19/22 17:44 BP 116/60 04/19/22 16:00 Pulse Ox 92 04/19/22 16:00 O2 Del Method 04/19/22 16:00 04/19/22 04/19/22 04/19/22 06:59 14:59 22:59 Intake Total 50 / 550 1240 / 1240 Output Total 600 / 900 Balance -550 / -350 1240 / 1240 Weight last 48 hrs Weight 70.307 kg Physical Exam Narrative: General: No acute distress, AO x3 HEENT: PERRLA, pupils bilaterally equal and reactive, pallors not present Chest: Normal vesicular breath sounds, no added sounds, equal good air entry bilaterally CVS: S1-S2 regular, no murmurs, no tachycardia, no gallops, no rubs Abdomen: Soft, nontender, no organomegaly, bowel sounds present Neuro: No focal deficits, no facial deformity, AO x3, power 5/5 in all limbs Urinary Catheter Management: Vincent: Cath Placed During This Visit: yes Reason for Continuing Indwelling Catheter: Required Immobilization for Trauma or Surgery or Anesthesia Urinary Catheter Date of Insertion: 04/18/22 Urinary Catheter Time of Insertion: 19:19 Data 04/19/22 05:02 04/19/22 05:02 Other data: CT Scan Report Signed Patient: Darius Kowalski Unit #: [id number] : 1940 Age/Sex: 82 / M ADM Date: 04/18/22 Loc: [facility] Room/Bed: [facility] Attending Dr: Milli Torres MD Ordering Provider/Ordering MD: ERICA Saavedra Date of Service: 04/19/22 Procedure(s): CT pelvis wo/w con [id number] Accession Number(s): [id number] Report Number: [id number] WS: [id number] NONCONTRAST AND CONTRAST-ENHANCED CT PELVIS INDICATION: Sacral fractures bladder cancer COMPARISON: CT lumbar April 18, 2022 TECHNIQUE: Noncontrast and contrast-enhanced CT of the pelvis. Coronal and sagittal reformatted images. FINDINGS: Again seen is the destructive metastatic lesion involving the LEFT hemisacrum with associated soft tissue thickening. Presumably this has been treated with radiation. Again this appears progressed from the prior PET/CT October 17, 2021. This is similar in appearance to the radiation therapy CT January 02, 2022 with associated bony sclerosis and fragmentation involving the LEFT aspect of the sacrum. Slight associated soft tissue thickening and edema LEFT anterior sacrum. Diffuse presacral edema. New associated bilateral sacral fractures involving the sacral ala likely insufficiency fractures. Additional midline S2 anterior cortical fracture with cortical step off. Additional fractures through the bilateral L5 sacralized transverse processes extending to the pedicle. This is new from the prior radiation therapy CT. Osteopenia. Diffuse presacral soft tissue edema. Diffuse bladder wall thickening with air-fluid level. Calcifications involving the bladder wall. History of bladder carcinoma. Vincent catheter. Air-fluid level in the bladder. Fat-containing umbilical hernia. Fat-containing LEFT greater than RIGHT inguinal hernias. Adrenal glands are normal. Abdominal aortic aneurysm measuring 2.7 x 2.7 cm AP by transverse. Sigmoid diverticulosis. CT/CT pelvis wo/w con [id number] IMPRESSION: 1.? Destructive previously treated metastatic lesion involving the LEFT aspect of the sacrum with associated soft tissue edema described above. 2.? Bilateral sacral insufficiency fractures 3.? Additional nondisplaced fracture involving the midline anterior sacrum at S2 best seen on the sagittal imaging. 4.? Additional new nondisplaced fractures through the bilateral L5 sacralized transverse processes extending to the pedicles bilaterally. ? A&P Assessment and plan (1) Unspecified fracture of sacrum, initial encounter for closed fracture: (2) Closed pelvic fracture: (3) UTI (urinary tract infection): Plan Patient presenting today with progressively worsening back pain, found to have an unstable sacral fracture. Plan for surgical intervention tomorrow per orthopedics. Patient has a history of bladder cancer and currently this appears to be a pathological fracture. May be also contributed by steroid use recently. He denies any other current complaints such as chest pain dyspnea or palpitations, orthopnea or PND recently. No contraindication from a medical standpoint to proceed with surgical intervention. UA with multiple WBCs, negative nitrate. May be financial services sales representative of a UTI. Patient does not rule endorse some dysuria, however uncertain if this is more related to his bladder cancer or recurrent UTI. Will obtain urine culture and use empiric ceftriaxone while awaiting culture data. Plan for today: CT of the pelvis was completed. Plan for surgical intervention tomorrow with orthopedics. Attestations Medical Necessity Statement*: Planned surgery, postop care. Coding Level of Care Code Acute Human Resources Manager for [facility] Fwd Diagnoses Unspecified fracture of sacrum, initial encounter for closed fracture S32.10XA Closed pelvic fracture S32.9XXA UTI (urinary tract infection) N39.0
[2022-04-19] MEDS: latanoprost 0.005% Op Soln 2.5 mL Btl 1 DROP EYE-BOTH (20:59)
[2022-04-19 21:01] LABS: Glucose Point of Care 149 mg/dL (70-110)
[2022-04-20] VITALS (34 sets, daily range): BP systolic 106–173; BP diastolic 62–94; PULSE 63–102; RESP 8–23; TEMP 36.2–36.8; O2SAT 90–99
--- NOTE | 2022-04-20 | XR_ITS ---
WS: [id number] XR lumbar spine 2-3V* [id number] REASON FOR EXAM: L4 to pelvis instrumented fusion FINDINGS: Posterior pedicle screws L4 and L5, and 3 sacral/iliac screws at S2 with interconnecting rods. Surgic al appliances appear in proper position and alignment and unchanged to the intraoperative examination of 04/20/2022 at 9:11 AM. XR/XR lumbar spine 2-3V* [id number] IMPRESSION: Posterior fusion as above.
[2022-04-20] MEDS: cefTRIAXone 1,000 MG in sodium chloride 0.9% (plus) 50 ML 100 MG IV ×2 (00:20→23:44)
[2022-04-20] MEDS: oxyCODONE-APAP 5-325 mg Tablet 1 TAB PO ×2 (00:26→04:58)
--- NOTE | 2022-04-20 01:04 | PC.NURSE ---
This nurse entered the patient's room at approximately 2243. When this nurse addressed the patient, the patient stated, My needs help. This nurse stepped over to the patient's , Yessica, who was sitting in the chair in just her bra and underwear, holding her chest and stating, I can't breathe. This nurse immediately ran to grab the vital cart to check patient's oxygen saturation level. When this nurse entered the patient's room, the patient was not be breathing. This nurse yelled for another nurse to grab the crash cart and BLS was initiated in the chair. When the second nurse was present, we moved the patient in a supine position on the floor. BLS was continued and a CODE BLUE was called overhead.
[2022-04-20] MEDS: lisinopril 5 mg Tablet PO (05:00)
[2022-04-20] MEDS: levothyroxine 50 mcg Tablet PO (05:00)
[2022-04-20] MEDS: sodium chloride 0.9% 1,000 ML 75 ML IV (06:34)
--- NOTE | 2022-04-20 06:36 | W.PM.OPSUD ---
Surgery/Procedure H&P Update DATE OF PROCEDURE: April 20, 2022 DATE H&P PERFORMED: 04/19/22 CHANGES TO PREVIOUS DOCUMENTATION: Patient last night in the room. Did discuss with the patient about surgery. We decided together that it is best that we proceed with surgery soon get on with all the things he needs to do. PREOP DIAGNOSIS: Sacral insufficiency fracture, sacral U fracture PLANNED PROCEDURE: Operation Date: 04/20/22 07:00 Proposed Procedures p L4-Pelvis fusion(Not Applicable) - Farhan Stephens, DO
[2022-04-20 07:14] LABS: Glucose Point of Care 133 mg/dL (70-110)
--- NOTE | 2022-04-20 07:22 | PC.NURSE ---
surgery Pt was taken down to surgery around 0710.
--- NOTE | 2022-04-20 07:30 | ANES.PREANE2 ---
Pre-Anesthetic Assessment Height/Weight: Height 1.63 m Weight 70.307 kg Temp Pulse Resp BP Pulse Ox O2 Del Method 98.3 F 76 17 172/69 94 04/20/22 07:16 04/20/22 07:16 04/20/22 07:16 04/20/22 07:16 04/20/22 07:16 04/20/22 07:16 Preop Diagnosis: Sacral insufficiency fracture, sacral U fracture Operation Date: 04/20/22 07:00 Proposed Procedures p L4-Pelvis fusion(Not Applicable) - Farhan Stephens, Familial anesthetic complications: None Was Beta Sabas taken within 24 hours: N/A Was Clonidine taken within 24 hours: N/A Last intake: Intake Last Liquid Date 04/20/22 Last Liquid Time 02:30 Last Solid Date 04/19/22 Last Solid Time 18:00 Social No alcohol and No tobacco quit smoking 1979 Exam alert, oriented x 3, clear to auscultation bilaterally and regular rate & rhythm Airway Mallampati: Class III Comments: Comments: [facility]chell Pulmonary Chronic Obstructive Pulmonary Disease CV/HEM Hypertension Metabolic Diabetes Mellitus, Hyperlipidemia and Thyroid Disease Anesthetic Plan ASA status: 4 Anesthesia: General Risk of > 500 ml blood loss (7ml/kg in children): No Medications/Allergies Home Medications Medication Instructions Recorded Confirmed Last Taken Type dorzolamide 2 % eye drops 1 drp ophthalmic (eye) BID 12/16/21 04/18/22 Unknown History gabapentin 300 mg capsule 300 mg PO BID 12/16/21 04/18/22 Unknown History glipizide 2.5 mg tablet, extended 2.5 mg PO QAM 12/16/21 04/18/22 Unknown History release 24 hr latanoprost 0.005 % eye drops 1 drp ophthalmic (eye) BEDTIME 12/16/21 04/18/22 Unknown History lisinopril 5 mg tablet 5 mg PO QAM 12/16/21 04/18/22 Unknown History lovastatin 40 mg tablet 40 mg PO QPM 12/16/21 04/18/22 Unknown History prochlorperazine maleate 10 mg 10 mg PO Q4H PRN Mild Nausea #30 01/26/22 04/18/22 Unknown Rx tablet (Compazine) tabs oxycodone-acetaminophen 5 mg-325 1 - 2 tab PO .Q4-6H PRN pain 30 04/13/22 04/18/22 Unknown Rx mg tablet (Percocet) days #60 tabs fluticasone propionate 50 2 spray intranasal DAILY PRN 04/18/22 04/18/22 Unknown History mcg/actuation nasal Allergy Symptoms spray,suspension ibuprofen 200 mg tablet 400 mg PO Q6H PRN Pain 04/18/22 04/18/22 04/17/22 History levothyroxine 50 mcg tablet 50 mcg PO QAM 04/18/22 04/18/22 Unknown History ondansetron HCl 8 mg tablet 8 mg PO Q8H PRN Nausea And Vomiting 04/18/22 04/18/22 Unknown History prednisone 20 mg tablet See Rx Instructions .Route .COMPLEX 04/18/22 04/18/22 04/17/22 History pt state has 2 tabs timolol maleate 0.5 % eye drops 1 drp ophthalmic (eye) BID 04/18/22 04/18/22 Unknown History Intraoperative Neuromonitoring #1 ea 04/19/22 Unknown Rx Allergies Allergy/AdvReac Type Severity Reaction Status Date / Time amoxicillin Allergy ALGY-Rash Verified 04/13/22 09:00 benzonatate Allergy ALGY-Rash Verified 04/13/22 09:00 Beta-Blockers Allergy ALGY-Wheezi Verified 04/13/22 09:00 (Beta-Adrenergic Bloc ng brimonidine Allergy ALGY-Swell Verified 04/13/22 09:00 Lip/Tongue/Throat guaifenesin Allergy ADR-Itching Verified 04/13/22 09:00 nitrofurantoin Allergy ALGY-Rash Verified 04/13/22 09:00 sulfamethoxazole Allergy ALGY-Rash Verified 04/13/22 09:00 [From Sulfamethoxazole-Trimethoprim] trimethoprim Allergy ALGY-Rash Verified 04/13/22 09:00 [From Sulfamethoxazole-Trimethoprim] Current Medications Generic Name Dose Route Start Last Admin Trade Name Freq PRN Reason Stop Dose Admin Atorvastatin Calcium 20 mg 04/19/22 18:00 04/19/22 17:41 Atorvastatin 40 Mg Tablet PO 20 mg QPM SANDY Administration Gabapentin 300 mg 04/19/22 09:00 04/19/22 17:40 Gabapentin 300 Mg Capsule PO 300 mg BID SANDY Administration Sodium Chloride 1,000 mls @ 75 mls/hr 04/18/22 22:45 04/20/22 06:34 Sodium Chloride 0.9% IV 75 mls/hr .[id number] SANDY Administration Ceftriaxone Sodium 1,000 mg/ 50 mls @ 100 mls/hr 04/18/22 23:45 04/20/22 00:57 Sodium Chloride IV Infused Q24H SANDY Infusion Protocol Insulin Human Lispro 0 unit 04/19/22 18:00 04/19/22 17:46 Insulin Lispro 100 Unit/1 Ml SUBCUT 4 unit TIDWM SANDY Administration Protocol Latanoprost 1 drop 04/19/22 21:00 04/19/22 20:59 Latanoprost 0.005% Op Soln 2.5 Ml Btl EYE-BOTH 1 drop BEDTIME SANDY Administration Levothyroxine Sodium 50 mcg 04/19/22 06:00 04/20/22 05:00 Levothyroxine 50 Mcg Tablet PO 50 mcg QAM SANDY Administration Lisinopril 5 mg 04/19/22 06:00 04/20/22 05:00 Lisinopril 5 Mg Tablet PO 5 mg QAM SANDY Administration Morphine Sulfate 1 mg 04/18/22 19:18 04/19/22 09:57 Morphine 4 Mg/Ml Sdv 1 Ml IVP 1 mg Q4H PRN Administration SEVERE PAIN Oxycodone/Acetaminophen 1 tab 04/18/22 22:38 04/20/22 04:58 Oxycodone-Apap 5-325 Mg Tablet PO 1 tab .Q4-6H PRN Administration pain Pantoprazole Sodium 40 mg 04/19/22 09:00 04/19/22 08:[address] 40 Mg Tablet PO 40 mg DAILY SANDY Administration Prednisone 20 mg 04/19/22 09:00 04/19/22 08:40 Prednisone 20 Mg Tablet PO 20 mg DAILY SANDY Administration Timolol Maleate 1 drop 04/19/22 09:00 04/19/22 17:44 Timolol 0.5% Op Soln 5 Ml Btl EYE-BOTH 1 drop BID SANDY Administration PFSH Anesthesia Medical History 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 Family History Father CAD (coronary artery disease) age 83 Diabetes Hypertension Mother Rheumatoid arthritis Other Hyperlipidemia Denies family history of Clotting disorder Dementia Psychiatric illness Chronic kidney disease (CKD) Suicide Anesthesia complication Bleeding disorder Lung disease Cancer Stroke Social History Smoking and tobacco status: former smoker (smoked x 23 years) Alcohol intake: never Data Anesthesia 04/19/22 05:02 04/19/22 05:02 Short CBC 04/18/22 04/19/22 Range/Units 11:12 05:02 WBC 13.7 H 9.7 (4.0-10.0) 10^3/uL Hgb 16.4 15.1 (11.7-16.6) g/dL Hct 50.9 46.8 (42.0-52.0) % MCV 92.9 93.0 (80-94) fl Plt Count 314 222 (130-400) 10^3/cmm Neut % (Auto) 72.4 68.4 % Neut # (Auto) 9.91 H 6.64 (1.8-7.7) 10^3/uL BMP 04/18/22 04/19/22 11:12 05:02 Sodium 133 L 133 L Potassium 4.2 4.4 Chloride 94 L 99 Carbon Dioxide 28 26 BUN 18 18 Creatinine 0.6 L 0.6 L Glucose 143 H 148 H Calcium 9.3 7.7 L Liver Function 04/18/22 04/19/22 Range/Units 11:12 05:02 Total Bilirubin 0.7 0.5 (0.15-1.2) mg/dL AST 14 10 (0-40) U/L ALT 10 8 (0-41) U/L Alkaline Phosphatase 75 63 (40-130) U/L Albumin 3.7 3.1 L (3.5-5.2) g/dL Urine 04/18/22 Range/Units 19:54 Urine Color Yellow (Yellow) Urine Appearance Cloudy A (CLEAR) Urine pH 6.5 (5-7) Ur Specific Randolph 1.010 (1.005-1.030) Urine Protein Trace (Negative) Urine Glucose (UA) Norm (Normal) Urine Ketones 1+ H (Negative) Urine Nitrate Negative (Negative) Urine Bilirubin Neg (Negative) Ur Leukocyte Esterase 2+ H (Negative) Urine RBC Too numerous to cnt H (0-2) /hpf Urine WBC Too numerous to cnt H (0-5) /hpf Cardiac Studies: No Data to Display
[2022-04-20] MEDS: sodium chloride 0.9% 1,000 ML 30 ML IV (07:38)
[2022-04-20] MEDS: ceFAZolin 2,000 MG in sodium chloride 0.9% (plus) 50 ML 100 MG IV ×2 (07:41→14:48)
--- NOTE | 2022-04-20 08:32 | SUR.OPER ---
called and notified daughter of surgical start
[2022-04-20] MEDS: vancomycin 1,000 MG SDV 1000 MG XX (08:43)
[2022-04-20] MEDS: heparin, porcine 1,000 unit/mL INJ 10 mL 10000 UNIT IRRIGATION (08:43)
--- NOTE | 2022-04-20 09:23 | SUR.OPER ---
daughter notified of surgical progress
--- NOTE | 2022-04-20 09:57 | XR_ITS ---
WS: [id number] XR lumbar spine 2-3V* [id number] REASON FOR EXAM: PA/LAT Post op fusion FINDINGS: Sacral and L5 fracture. Posterior decompression with posterior pedicle screw placement at L4 and L5. 2 long obliquely placed screws at C2 across the sacroiliac joints bilaterally. There are connecting rods from the superiormos t pedicle screw to the S2 screws. Surgical appliances appear in proper position and alignment. XR/XR lumbar spine 2-3V* [id number] IMPRESSION: Posterior fusion as above without abnormality.
--- NOTE | 2022-04-20 10:04 | PM.OP ---
Operative Report Date of procedure: April 20, 2022 Pre-op diagnosis: Preop Diagnosis Sacral insufficiency fracture, sacral U fracture Post-op diagnosis: same Procedure done: 1. L4-pelvis fusion 2. L4-5 instrumentation 3. Lumbopelvic instrumentation 4. use of computer navigation/stereotactic of spine 5. biopsy of left sacral ala 6. use of allograft Surgeon: Farhan Stephens Metal Sprayer Production: Biju Valverde Metal Sprayer Production: The housekeeper/laundry assistant, Biju Valverde, PAC was needed for his expertise under the microscope. He was important and necessary throughout the procedure to complete in a safe and timely manner. He assisted with patient positioning prepping and draping tissue retraction suctioning of the operative field protection of the dural sac and tissue closure Estimated blood loss (mL): 50 Procedure: 1. L4-pelvis fusion 2. L4-5 instrumentation 3. Lumbopelvic instrumentation 4. use of computer navigation/stereotactic of spine 5. biopsy of left sacral ala 6. use of allograft Patient is brought to the operative suite after undergoing anesthesia was placed in the prone position. Neuro monitoring was used throughout the entire case. There were no issues. Patient was had all areas impingement well-padded. Patient was then prepped and draped normal sterile fashion. Skin incision made from L4 down to the sacrum. The thoracolumbar fascia was identified subperiosteal dissection was made out to the transverse processes of L4-L5 and the sacral ala. Once exposure was completed attention was then brought to placing the fiducial for the computer navigation. 2 pins were placed into the right iliac crest. The fiducial for the computer navigation was attached to these 2 pins. The pins were later removed at the end of the case. The C-arm was brought in and spun around the patient and the information from the computer was loaded from the C-arm and this was later used for placement of the pedicle screws and the iliac screws. Attention was first brought to placing the pedicle screws. The gearshift probe was used first followed by the pedicle feeler followed by placement of the screws using using computer navigation both the gearshift and the pedicle screws were done using computer navigation. Screws were placed at L4 and L5 bilaterally. Next attention was brought to placing the iliac screws. 2 iliac screws were placed on the right anterior x-rays were placed on the left. This was done using computer navigation. The gearshift probe was placed through the sacral ala across the SI joint and into the iliac wing there was a 7.5 90 mm screw and a 7.5 80 mm screw was placed on the right. Attention was then brought to the left side. Prior to placing the screw the biopsy was done. This was done using high-speed bur to open up the cortical shell with the metastatic lesion was. Pituitaries used to take tumor fragments out this was placed on [facility] and sent to the lab for evaluation of the biopsy. Next attention was brought to placing the screws. Again the gearshift probe was used to followed by the pedicle feeler followed by placement of the screw. All screws were placed then rods were attached to the screws and locked into position and caps were placed on top torqued these all down the caps were placed at L4-L5 and to the iliac screws in the right and L4-L5 and to the iliac screws on the left. Connecting the lumbar pelvic fixation. Next the lamina and facets were decorticated using high-speed bur bilaterally. And then ostial amp allograft was placed in facilitate using the sacrum to the pelvis. Wounds were irrigated prior to this and wound was then closed in layered fashion with 0 Vicryl 2-0 Vicryl and Monocryl suture. Sterile dressings were applied patient was transferred to the PACU in stable condition.
[2022-04-20] MEDS: fentaNYL 50 mcg/mL INJ 2mL IVP ×2 (10:32→10:48)
[2022-04-20 11:00] LABS: Glucose Point of Care 104 mg/dL (70-110)
--- NOTE | 2022-04-20 11:12 | PC.NURSE ---
Art line right wrist removed intact. Pressure held 10 minutes with homostasis achieved
[2022-04-20] MEDS: HYDROcodone-acetaminophen 5-325 mg Tablet PO ×2 (11:57→16:03)
--- NOTE | 2022-04-20 12:50 | ANE.PACU2 ---
Inpatient post-anesthesia follow up: Airway intact: Yes Vital signs: Temperature 97.2 F Pulse Rate 75 Respiratory Rate 18 Blood Pressure 156/73 Pulse Oximetry 98 Oxygen Delivery Me thod Nasal Cannula Oxygen Flow Rate 3 Fraction of Inspir ed Oxygen Hydration adequate: Yes Nausea and vomiting: No Pain level: 1 Mental status: Baseline
[2022-04-20] MEDS: ketorolac 30 mg/mL INJ IVP ×2 (12:51→18:32)
[2022-04-20 12:52] LABS: Glucose Point of Care 139 mg/dL (70-110)
--- NOTE | 2022-04-20 15:35 | P.PN_ITS ---
Subjective Subjective: Patient's in the room suddenly last night when she was here to visit him. She received CPR in his room. Patient grieving about this. He went through with his surgery this morning and is now s/p L4-pelvis fusion today. Vitals/I&O/Wt Last Vital Signs Temp 97.2 F L 04/20/22 12:15 Pulse 92 04/20/22 14:04 Resp 16 04/20/22 14:04 BP 156/73 04/20/22 12:15 Pulse Ox 99 04/20/22 14:04 O2 Del Method 04/20/22 14:04 O2 Flow Rate 2 04/20/22 14:04 04/20/22 04/20/22 04/20/22 06:59 14:59 22:59 Intake Total 1250 / 3350 2650 / 2650 Output Total 900 / 900 Balance 1250 / 2350 1750 / 1750 Physical Exam Narrative: General: No acute distress, AO x3 HEENT: PERRLA, pupils bilaterally equal and reactive, pallors not present Chest: Normal vesicular breath sounds, no added sounds, equal good air entry bilaterally CVS: S1-S2 regular, no murmurs, no tachycardia, no gallops, no rubs Abdomen: Soft, nontender, no organomegaly, bowel sounds present Neuro: No focal deficits, no facial deformity, AO x3, power 5/5 in all limbs Urinary Catheter Management: Vincent: Cath Placed During This Visit: yes Reason for Continuing Indwelling Catheter: Required Immobilization for Trauma or Surgery or Anesthesia Urinary Catheter Date of Insertion: 04/18/22 Urinary Catheter Time of Insertion: 19:19 Data 04/19/22 05:02 04/19/22 05:02 Micro: Microbiology 04/18/22 19:54 Urine Culture - Preliminary Urine,Clean Catch A&P Assessment and plan (1) Unspecified fracture of sacrum, initial encounter for closed fracture: (2) Closed pelvic fracture: (3) UTI (urinary tract infection): Plan Patient presenting with progressively worsening back pain, found to have an unstable sacral fracture. s/p l4-pelvis spinal fusion today. Patient has a history of bladder cancer and currently this appears to be a pathological fracture. May be also contributed by steroid use recently. Biopsies taken in OR. PT/OT assessment and treatment UA with multiple WBCs, negative nitrate. May be telephone sales representative of a UTI. Patient does endorse some dysuria, however uncertain if this is more related to his bladder cancer or recurrent UTI. Will obtain urine culture and use empiric ceftriaxone while awaiting culture data. Attestations Medical Necessity Statement*: s/p surgical intevrntion today, post op monitoing, pain control and disposition planning Coding Level of Care Code Acute Code for Chg Fwd Diagnoses Unspecified fracture of sacrum, initial encounter for closed fracture S32.10XA Closed pelvic fracture S32.9XXA UTI (urinary tract infection) N39.0
[2022-04-20 17:15] LABS: Glucose Point of Care 215 mg/dL (70-110)
[2022-04-20] MEDS: insulin lispro 100 unit/1 mL SUBCUT (18:34)
[2022-04-20] MEDS: gabapentin 300 mg Capsule PO (18:34)
[2022-04-20] MEDS: atorvastatin 40 mg Tablet 20 MG PO (18:34)
[2022-04-20] MEDS: docusate sodium 100 mg Capsule PO (18:35)
[2022-04-20] MEDS: timolol 0.5% Op Soln 5 mL Btl 1 DROP EYE-BOTH (18:38)
[2022-04-20] MEDS: latanoprost 0.005% Op Soln 2.5 mL Btl 1 DROP EYE-BOTH (20:33)
[2022-04-20] MEDS: morphine 4 mg/mL SDV 1 mL 1 MG IVP (23:58)
[2022-04-21 04:00] VITALS: BP 123/66; PULSE 81; RESP 22; TEMP 36.1; O2SAT 91
[2022-04-21] MEDS: sodium chloride 0.9% 1,000 ML 50 ML IV (04:45)
[2022-04-21] MEDS: HYDROcodone-acetaminophen 5-325 mg Tablet PO ×2 (04:57→08:57)
[2022-04-21] MEDS: levothyroxine 50 mcg Tablet PO (05:02)
[2022-04-21] MEDS: lisinopril 5 mg Tablet PO (05:02)
[2022-04-21 06:00] VITALS: PULSE 74
[2022-04-21 06:00] LABS: Basophils % 0.1 %; Eosinophils % 0.1 %; Hematocrit 39.5 % (42.0-52.0); Hemoglobin 12.3 g/dL (11.7-16.6); Lymphocytes # 1.2 10^3/uL (0.8-4.8); Lymphocytes % 11.5 %; Mean Corpuscular HGB Conc 31.1 g/dL (30.0-36.0); Mean Corpuscular Hemoglobin 29.9 pg (28.0-34.0); Mean Corpuscular Volume 95.9 fl (80-94); Mean Platelet Volume 9.6 fL (7.4-10.4); Monocytes # 1.2 10^3/uL (0.2-0.9); Neutrophils # 8.06 10^3/uL (1.8-7.7); Neutrophils % 76.6 %; Nucleated Red Blood Cells % 0 %; Platelet Count 202 10^3/cmm (130-400); Red Blood Count 4.12 10^6/uL (4.1-5.3); Red Cell Distribution Width 13.3 % (12.1-15.1); White Blood Count 10.5 10^3/uL (4.0-10.0)
[2022-04-21 06:31] LABS: Alanine Aminotransferase 13 U/L (0-41); Albumin Level 2.6 g/dL (3.5-5.2); Alkaline Phosphatase 60 U/L (40-130); Aspartate Amino Transferase 16 U/L (0-40); Blood Urea Nitrogen 15 mg/dL (8-23); Calcium 7.6 mg/dL (8.5-10.5); Carbon Dioxide 24 mmol/L (22-29); Chloride 101 mmol/L (98-107); Globulin 2.7 g/dL (1.3-4.6); Glucose 146 mg/dL (65-115); Osmolality Calculated 273 mOsm/kg (285-295); Sodium 130 mmol/L (136-145); Total Bilirubin 0.2 mg/dL (0.15-1.2); Total Protein 5.3 g/dL (6.6-8.7)
[2022-04-21 06:35] LABS: Anion Gap 9.6 (5-19); Potassium 4.6 mmol/L (3.5-5.1)
--- NOTE | 2022-04-21 06:35 | P.PN_ITS ---
Subjective Subjective: POD 1 Resting comfortably with family present. Reports improvement of his left leg pain. Back pain has improved as well. Denies any shortness of breath, chest pain, headaches. Vitals/I&O/Wt Last Vital Signs Temp 97.0 F L 04/21/22 04:00 Pulse 81 04/21/22 04:00 Resp 22 H 04/21/22 04:00 BP 123/66 04/21/22 04:00 Pulse Ox 91 04/21/22 04:00 O2 Del Method 04/21/22 04:00 O2 Flow Rate 2 04/20/22 14:04 04/20/22 04/20/22 04/21/22 14:59 22:59 06:59 Intake Total 2890 / 2890 1290 / 4180 50 / 4230 Output Total 900 / 900 772 / 1672 Balance 1989 518 / 2508 50 / 2558 Physical Exam Narrative: Patient presents alert and oriented x3 with a good general appearance normal mood and affect. Normal coordination normal stability. Mild tenderness around the incisional site with the incision appear to be clean and dry with Hemovac intact. No signs of erythema or drainage. No signs of infection. Patient denies any fevers or chills. 4/5 motor strength both lower extremities with negative straight leg raise bilaterally. Calves are supple no medial thigh tenderness. Pulses are 2+ at the dorsalis pedis and posterior tibial region. Good capillary refill throughout normal sensation light touch both lower extremities. Urinary Catheter Management: Vincent: Cath Placed During This Visit: yes Reason for Continuing Indwelling Catheter: Required Immobilization for Trauma or Surgery or Anesthesia Urinary Catheter Date of Insertion: 04/18/22 Urinary Catheter Time of Insertion: 19:19 Data 04/21/22 05:23 04/21/22 05:23 Micro: Microbiology 04/18/22 19:54 Urine Culture - Preliminary Urine,Clean Catch A&P Assessment and plan (1) Status post lumbar spinal fusion: We will discontinue the Hemovac drain. Continue to have physical therapy working with mobilization. volunteer services supervisor consult for placement. Okay from orthopedic standpoint to discharge to rehab facility when placement established. Follow-up in the office in 1 week's time for wound check. Continue incentive spirometry for pulmonary toilet. Attestations Medical Necessity Statement*: Defer to medical team Coding Level of Care Code Acute Code for Chg Fwd Diagnoses Status post lumbar spinal fusion Z98.1
[2022-04-21 07:27] LABS: Glucose Point of Care 134 mg/dL (70-110)
[2022-04-21 08:00] VITALS: BP 124/61; PULSE 78; RESP 18; TEMP 37; O2SAT 92
[2022-04-21] MEDS: docusate sodium 100 mg Capsule PO (08:56)
[2022-04-21] MEDS: predniSONE 20 mg Tablet PO (08:56)
[2022-04-21] MEDS: gabapentin 300 mg Capsule PO (08:57)
[2022-04-21] MEDS: pantoprazole DR 40 mg Tablet PO (08:57)
--- NOTE | 2022-04-21 09:49 | PM.DCS ---
Discharge Providers Date of Admission: 04/18/22 18:03 Date of Discharge: April 21, 2022 Attending Provider at Admission: Milli Torres MD Attending Provider at Discharge: Milli Torres MD Consults: CORDELIA BARTON MD/ orthopedics Primary Care Provider: Jadiel Wheat Diagnoses at Discharge Discharge Diagnosis (1) Status post lumbar spinal fusion: Status: Acute Reason for Visit Reason for Visit: Back Pain Hospital Course Hospital Course Patient presenting on 04/19/22 with progressively worsening back pain over 2 weeks, found to have an unstable sacral fracture. s/p l4-pelvis spinal fusion on 04/20. Patient has a history of bladder cancer and currently this appears to be a pathological fracture. Biopsies taken in OR. Currently pending. Patient tolerated surgery well. PT/OT assessment and treatment appreciated. UA with multiple WBCs, negative nitrate.? May be outside medical sales representative of a UTI.? Patient does endorse some dysuria, however uncertain if this is more related to his bladder cancer or recurrent UTI.? negative urine culture to date. received ceftriaxone in the hospital, transitioned to levaquin for 3 days as cx remains pending. Physical Exam Narrative: General: No acute distress, AO x3 HEENT: PERRLA, pupils bilaterally equal and reactive, pallors not present Chest: Normal vesicular breath sounds, no added sounds, equal good air entry bilaterally CVS: S1-S2 regular, no murmurs, no tachycardia, no gallops, no rubs Abdomen: Soft, nontender, no organomegaly, bowel sounds present Neuro: No focal deficits, no facial deformity, AO x3, power 5/5 in all limbs Urinary Catheter Management: Vincent: Cath Placed During This Visit: yes Reason for Continuing Indwelling Catheter: Required Immobilization for Trauma or Surgery or Anesthesia Urinary Catheter Date of Insertion: 04/18/22 Urinary Catheter Time of Insertion: 19:19 Discharge Data Studies Completed and Pending Completed Studies During Hospitalization Category Date Time Status CT lumbar spine wo con* [id number] Stat Cat Scan 04/18/22 11:[address] pelvis wo/w con [id number] Routine Cat Scan 04/19/22 06:[address] thoracic spin wo con* [id number] Stat Cat Scan 04/18/22 11:31 Completed XR chest 1V portable [id number] Stat Exams 04/18/22 15:06 Completed XR lumbar spine 2-3V* [id number] Routine Exams 04/20/22 Completed XR lumbar spine 2-3V* [id number] Routine Exams 04/20/22 09:57 Completed Pending at discharge Category Date Time Status SARS Covid-2 Antigen Stat Lab 04/21/22 08:49 Uncollected Urine Culture Routine Lab 04/18/22 19:54 Results Pathology: Surgical [PTH] Routine Pth 04/20/22 09:38 Received Radiology Impressions Lumbar Spine CT 04/18/22 11:31 IMPRESSION: 1. Destructive lesion involving the LEFT aspect of the sacrum with associated soft tissue lesion is similar in appearance to the prior radiation therapy CT January 02, 2022. 2. New bilateral sacral fractures likely insufficiency fractures involving the RIGHT and LEFT hemisacrum and sacral ala. 3. Additional nondisplaced fracture involving the midline anterior sacrum at S2 with cortical step-off. 4. Additional nondisplaced fractures through the bilateral L5 sacralized transverse processes at the pedicle may be posttraumatic, pathologic, or insufficiency fractures 5. Moderate bilateral hydronephrosis partially visualized with ureterectasis. 6. Abdominal aortic aneurysm measuring 2.7 x 2.7 cm appears stable. Notified Hayden Mahan DO at 04/18/2022 12:[address] 04/18/22 11:31 IMPRESSION: No evidence of thoracic metastatic disease. Chest X-Ray 04/18/22 15:06 IMPRESSION: Right-sided chest port in satisfactory position. No pneumothorax. Pelvis CT 04/19/22 06:53 IMPRESSION: 1. Destructive previously treated metastatic lesion involving the LEFT aspect of the sacrum with associated soft tissue edema described above. 2. Bilateral sacral insufficiency fractures 3. Additional nondisplaced fracture involving the midline anterior sacrum at S2 best seen on the sagittal imaging. 4. Additional new nondisplaced fractures through the bilateral L5 sacralized transverse processes extending to the pedicles bilaterally. Lumbar Spine X-Ray 04/20/22 09:57 IMPRESSION: Posterior fusion as above without abnormality. Laboratory Results WBC 10.5 10^3/uL (4.0-10.0) H 04/21/22 05:23 RBC 4.12 10^6/uL (4.1-5.3) 04/21/22 05:23 Hgb 12.3 g/dL (11.7-16.6) 04/21/22 05: Hct 39.5 % (42.0-52.0) L 04/21/22 05:23 MCV 95.9 fl (80-94) H 04/21/22 05:23 MCH 29.9 pg (28.0-34.0) 04/21/22 05: MCHC 31.1 g/dL (30.0-36.0) 04/21/22 05:23 RDW 13.3 % (12.1-15.1) 04/21/22 05:23 Plt Count 202 10^3/cmm (130-400) 04/21/22 05:23 MPV 9.6 fL (7.4-10.4) 04/21/22 05:23 Neut % (Auto) 76.6 % 04/21/22 05:23 Lymph % (Auto) 11.5 % 04/21/22 05:23 [place] % (Auto) 11.0 % 04/21/22 05:23 Eos % (Auto) 0.1 % 04/21/22 05:23 Baso % (Auto) 0.1 % 04/21/22 05:23 Neut # (Auto) 8.06 10^3/uL (1.8-7.7) H 04/21/22 05:23 Lymph # (Auto) 1.2 10^3/uL (0.8-4.8) 04/21/22 05:23 [place] # (Auto) 1.2 10^3/uL (0.2-0.9) H 04/21/22 05:23 Eos # (Auto) 0.0 10^3/uL (0.0-0.8) 04/21/22 05:23 Baso # (Auto) 0.0 10^3/uL (0.0-0.1) 04/21/22 05:23 Nucleated RBC % (auto) 0 % 04/21/22 05: Nucleated RBCs # 0.0 /100WBC 04/21/22 05:23 Sodium 130 mmol/L (136-145) L 04/21/22 05:23 Potassium 4.6 mmol/L (3.5-5.1) 04/21/22 05:23 Chloride 101 mmol/L (98-107) 04/21/22 05:23 Carbon Dioxide 24 mmol/L (22-29) 04/21/22 05:23 Anion Gap 9.6 (5-19) 04/21/22 05:23 BUN 15 mg/dL (8-23) 04/21/22 05:23 Creatinine 0.5 mg/dL (0.7-1.2) L 04/21/22 05:23 GFR Calculation Not Reportable 04/21/22 05:23 Glucose 146 mg/dL (65-115) H 04/21/22 05:23 POC Glucose 134 mg/dL (70-110) H 04/21/22 07:17 Calculated Osmolality 273 mOsm/kg (285-295) L 04/21/22 05:23 Calcium 7.6 mg/dL (8.5-10.5) L 04/21/22 05:23 Total Bilirubin 0.2 mg/dL (0.15-1.2) 04/21/22 05: AST 16 U/L (0-40) 04/21/22 05: ALT 13 U/L (0-41) 04/21/22 05:23 Alkaline Phosphatase 60 U/L (40-130) 04/21/22 05:23 Total Protein 5.3 g/dL (6.6-8.7) L 04/21/22 05:23 Albumin 2.6 g/dL (3.5-5.2) L 04/21/22 05:23 Globulin 2.7 g/dL (1.3-4.6) 04/21/22 05:23 Urine Color Yellow (Yellow) 04/18/22 19:54 Urine Appearance Cloudy (CLEAR) A 04/18/22 19:54 Urine pH 6.5 (5-7) 04/18/22 19:54 Ur Specific [place] 1.010 (1.005-1.030) 04/18/22 19:54 Urine Protein Trace (Negative) 04/18/22 19:54 Urine Glucose (UA) Norm (Normal) 04/18/22 19:54 Urine Ketones 1+ (Negative) H 04/18/22 19:54 Urine Blood 3+ (Negative) H 04/18/22 19:54 Urine Nitrate Negative (Negative) 04/18/22 19:54 Urine Bilirubin Neg (Negative) 04/18/22 19:54 Urine Urobilinogen Norm mg/dL (Negative) 04/18/22 19:54 Ur Leukocyte Esterase 2+ (Negative) H 04/18/22 19:54 Urine RBC Too numerous to cnt /hpf (0-2) H 04/18/22 19:54 Urine WBC Too numerous to cnt /hpf (0-5) H 04/18/22 19:54 Ur Squamous Epith Cells None /hpf (0-5) 04/18/22 19:54 Amorphous Sediment Not Reportable 04/18/22 19:54 Urine Bacteria 3+ /hpf (NONE) H 04/18/22 19:54 Blood Type AB Negative 04/20/22 07:35 Rho(D) Type Negative 04/20/22 07:35 Antibody Screen Negative 04/20/22 07:35 Vitals Last Vital Signs Temp 98.6 F 04/21/22 08:00 Pulse 78 04/21/22 08:00 Resp 18 04/21/22 08:00 BP 124/61 04/21/22 08:00 Pulse Ox 92 04/21/22 08:00 O2 Del Method 04/21/22 04:00 O2 Flow Rate 2 04/20/22 14:04 Discharge Plan Discharge Patient Disposition: Xfer SNF Condition: Stable Prescriptions: New pantoprazole 40 mg Tablet,Delayed Release (Dr/Ec) 40 mg PO DAILY 30 Days Qty: 30 0RF levofloxacin 500 mg tablet 500 mg PO DAILY 3 Days Qty: 3 0RF Continued lovastatin 40 mg tablet 40 mg PO QPM glipizide 2.5 mg tablet extended release 24hr 2.5 mg PO QAM lisinopril 5 mg tablet 5 mg PO QAM gabapentin 300 mg capsule 300 mg PO BID latanoprost 0.005 % drops 1 drp ophthalmic (eye) BEDTIME dorzolamide 2 % drops 1 drp ophthalmic (eye) BID Rx Instructions: both eyes oxycodone-acetaminophen [Percocet] 5-325 mg tablet 1 - 2 tab PO .Q4-6H PRN (Reason: pain) 30 Days Qty: 60 0RF (DME) Intraoperative Neuromonitoring See Rx Instructions .Route .MEDSUPPLY Qty: 1 0RF Rx Instructions: As directed. prochlorperazine maleate [Compazine] 10 mg tablet 10 mg PO Q4H PRN (Reason: Mild Nausea) Qty: 30 3RF ondansetron HCl 8 mg tablet 8 mg PO Q8H PRN (Reason: Nausea And Vomiting) ibuprofen 200 mg Tablet 400 mg PO Q6H PRN (Reason: Pain) timolol maleate 0.5 % drops 1 drp ophthalmic (eye) BID Rx Instructions: each eye fluticasone propionate 50 mcg/actuation spray,suspension 2 spray INTRANASAL DAILY PRN (Reason: Allergy Symptoms) prednisone 20 mg tablet See Rx Instructions .ROUTE .COMPLEX Rx Instructions: 60mg on day 1,2,3 40mg on day 4,5 20mg on day 6,7 levothyroxine 50 mcg tablet 50 mcg PO QAM Discharge Orders: Discharge Order (Routine); Ordered 04/21/22 Ordered By: Milli Torres Referrals: Jadiel Wheat [Primary Care Provider] - Discharge Diet: Advance as tolerated Discharge Activity: Limit activity as instructed Patient Instructions: Opioid Safety Activity Restrictions/Additional Instructions: Thank you for choosing [facility] for your care! The following is a list of instructions, from your provider, to follow upon your discharge to ensure you have the optimal recovery from your recent injury or surgery. Follow-up care is a cope part of your treatment and safety. Be sure to make and go to all appointments and call your doctor if you are having problems. If you do not already have a follow-up appointment made, call Dr. Barton's] office in the next 1-3 days to make follow up appointment for 1 weeks at [phone]. It is also a good idea to know your test results and keep a list of the medicines you take. Medications will be prescribed for you at your provider's discretion. These medications are to be used as instructed; if they are taken more often that prescribed they will not be refilled early and in most cases will not be refilled at all. > When a refill is needed, you should contact [facility] 2-3 business days before your prescription runs out. Medications will NOT be refilled by police communications dispatcher providers after hours! > Many pain medications contain Tylenol (Acetaminophen). Do not consume more than 4,000 mg of Tylenol per day in total with any combination of medications. > Pain medications can cause constipation. Please use an over the counter stool softener as directed, while taking pain medications. Consult your local pharmacist with questions or recommendations on stool softeners. If constipation persists, contact our office or your primary care provider. > While under our care, you are not to receive pain medications or other controlled substances from any other provider unless our office is notified and approves. Any attempts to do so will result in refusal to prescribe any further pain medications and possible dismissal from our practice. ? Walking is essential for the healing process after surgery. We would like you to slowly advance your walking. This should be done on relatively flat clear ground (inside or out) or can be done on a treadmill. Remember this goal does not have to happen all at once, slowly increase your distance and duration. This can be broken into more more than one walk per day as tolerated. Patients who walk as directed after surgery rarely require Physical Therapy. In the unlikely event this issue arises your provider will direct hospital staff to make the appropriate arrangements. ? No lifting over 5 pounds {a gallon of milk) or bending/twisting until further notice. Each of these activities places an unnecessary amount of stress onto the body and can impede the delicate healing process. > Instead of bending at the waist, keep your back straight and bend at the knees. > Instead of twisting your torso, keep your back straight and turn your entire body with your feet. ? You may sleep in any position which makes you comfortable. Many patients find comfort sleeping in a reclining chair. It is not abnormal to have difficulty sleeping for the first several weeks following your surgery. We recommend trying Benadry! or Tylenol PM as directed to help with your sleeping difficulties. Both medications are over the counter and available without prescription. ? NO SMOKING!!! Smoking dramatically increases the probability of developing postoperative wound infections. ? Common complaints after lumbar and/or thoracic spine surgery include, but are not limited to: numbness and/or tingling in the legs, pain around the incision and surrounding tissues, muscle spasms, or stiffness of the middle to low back. Contact our office if these symptoms persist or if an acute change occurs. ? No driving for the first 3-5days, and not while taking narcotics until seen at your follow-up appointment and cleared. There are no restrictions for riding on short trips, however if you take a longer trip, arrangements should be made to make regular stops to get out of the vehicle and stretch . ? Swelling is an unfortunate event that will take place with any surgery and is the primary source of your postoperative discomfort. While walking and regular approved activities helps control inflammation, there are additional steps you can take to minimize swelling. > Place ice over the surgical site and surrounding tissue for twenty minutes, followed by applying a low/medium heat (heating pad) for an additional twenty minutes every 1-2 hours as needed for painrelief. > You may use of over the counter anti-inflammatory medications (Ibuprofen, Motrin, Aleve, Advil, etc) as directed on the package label. These types of medicines will significantly reduce the amount of discomfort you experience after surgery from swelling. It should be noted that if you have and allergy to any of these medications, or a history of ulcers or kidney disease you should consult you primary care provider prior to starting these medications. Discharge Attestations Time Spent in Discharge Care*: greater than 30 min Quality Metrics Clinical Quality Measures [ No reported AMI, CVA or VTE this stay] Coding Level of Care Code Acute g FW TN note Diagnoses Status post lumbar spinal fusion Z98.1
[2022-04-21 10:58] LABS: SARS Covid-2 Antigen negative (Negative)
--- NOTE | 2022-04-21 11:21 | PC.NURSE ---
Hemovac drain removed, dressing clean, dry, and intact.
[2022-04-21] MEDS: timolol 0.5% Op Soln 5 mL Btl 1 DROP EYE-BOTH (11:34)
--- NOTE | 2022-04-21 11:49 | PC.SOCIAL ---
Pg 2 IMM Explained to pt Pg 2 IMM. No questions voiced. Provided pt a copy. Initialed, dated, & timed a copy & placed in chart.
[2022-04-21 12:33] LABS: Glucose Point of Care 218 mg/dL (70-110)
[2022-04-21 13:07] VITALS: BP 124/61; PULSE 78; RESP 18; TEMP 37; O2SAT 92
== END 2022-04-21 13:09 | disposition skilled nursing facility (03) | DRG 454 ==
LOC: ER 15:06 → MEDSURG 18:04
PROVIDERS: Family Medicine; Orthopaedic Surgery; Admitting Provider Student in an Organized Health Care Education/Training Program; Emergency Provider Emergency Medicine; PCP Family Medicine; Visit Provider Student in an Organized Health Care Education/Training Program
PROC: 0SG00KJ Fusion of Lumbar Vertebral Joint with Nonautologous Tissue Substitute, Posterior Approach, Anterior Column, Open Approach (ICD-10-PCS; principal; 2022-04-20 07:00)
DX: M84.550A Pathological fracture in neoplastic disease, pelvis, initial encounter for fracture (principal); C77.5 Secondary and unspecified malignant neoplasm of intrapelvic lymph nodes; C79.51 Secondary malignant neoplasm of bone; N39.0 Urinary tract infection, site not specified; C67.9 Malignant neoplasm of bladder, unspecified; W01.0XXA Fall on same level from slipping, tripping and stumbling without subsequent striking against object, initial encounter; Z92.3 Personal history of irradiation; Z79.84 Long term (current) use of oral hypoglycemic drugs; Z79.891 Long term (current) use of opiate analgesic; Z79.52 Long term (current) use of systemic steroids; Z79.899 Other long term (current) drug therapy; Z87.891 Personal history of nicotine dependence
CPT/HCPCS: 36415; 36416; 36592; 51702; 71045; 72100; 72128; 72131; 72194; 76000; 80053; 81001; 82962; 85025; 86850; 86900; 87086; 87426; 88307; 88311; 93005; 96360; 96372; 97116; 97161; 97530; 99285; C1713; J0690; J0696; J1100; J1644; J1815; J1885; J2270; J2370; J2405; J2704; J2710; J3010; J3370; J3490; J7030; J7040; J7512; Q9967

== ENCOUNTER → 2022-05-04 14:02 | Outpatient (BNVA) | payer MEDICARE, OTHER, SELFPAY | PROVIDERS: PCP Family Medicine; Visit Provider Orthopaedic Surgery | DX: Z47.89 Encounter for other orthopedic aftercare (principal); Z98.1 Arthrodesis status | CPT/HCPCS: 99024 ==

== ENCOUNTER 2022-05-13 09:23 | Outpatient (CLI) | payer MEDICARE, OTHER, SELFPAY ==
[2022-05-13 10:58] LABS: Anion Gap 15.6 (5-19); Blood Urea Nitrogen 21 mg/dL (8-23); Calcium 8.8 mg/dL (8.5-10.5); Carbon Dioxide 28 mmol/L (22-29); Chloride 85 mmol/L (98-107); Glucose 225 mg/dL (65-115); Osmolality Calculated 266 mOsm/kg (285-295); Potassium 5.6 mmol/L (3.5-5.1); Sodium 123 mmol/L (136-145)
== END 2022-05-13 09:24 | disposition home or self-care (01) ==
PROVIDERS: PCP Family Medicine; Visit Provider Family Medicine
DX: M62.81 Muscle weakness (generalized) (principal)
CPT/HCPCS: 80048

== ENCOUNTER 2022-05-15 16:45 | Inpatient (IN) | payer MEDICARE, OTHER, SELFPAY ==
[2022-05-15] VITALS (7 sets, daily range): BP systolic 103–123; BP diastolic 56–89; PULSE 97–107; RESP 15–18; TEMP 36.8–37.1; O2SAT 93–95; BMI 24.9
--- NOTE | 2022-05-15 16:51 | ED_ITS ---
HPI - General Adult General: Chief complaint: Recheck/Abnormal Lab/Rx Stated complaint: LOW SODIUM AND HIGH K Time Seen by Provider: 05/15/22 16:51 History of Present Illness: Mr. Kowalski is an 82-year-old gentleman with complex past medical history presenting to the emergency department for abnormal labs. He reports noticing perhaps some mild weakness and poor appetite though denies any other focal changes. Labs earlier today revealed hyponatremia and hyperkalemia and he was referred to the emergency department for such. Intensity of symptoms is moderate. Course has persisted. No other specific changes in health, exacerbating, or alleviating factors identified. 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 Status post lumbar spinal fusion Family History Father CAD (coronary artery disease) age 83 Diabetes Hypertension Mother Rheumatoid arthritis Other Hyperlipidemia Denies family history of Clotting disorder Dementia Psychiatric illness Chronic kidney disease (CKD) Suicide Anesthesia complication Bleeding disorder Lung disease Cancer Stroke Social History Smoking and tobacco status: former smoker (smoked x 23 years) Alcohol intake: never Physical Exam Const: COMMON NORMALS: patient oriented x3 and alert GENERAL APPEARANCE: cooperative and well developed HENMT: COMMON NORMALS: normocephalic and atraumatic HEAD & SCALP: normocephalic and atraumatic THROAT: posterior oropharynx normal Eye: COMMON NORMALS: conjunctivae normal CONJUNCTIVA: Yes conjunctivae normal SCLERA: sclerae normal Neck/C-Spine: COMMON NORMALS: supple GENERAL: Yes trachea midline Resp: COMMON NORMALS: clear to auscultation bilaterally EFFORT & INSPECTION: Yes able to speak in complete sentences AUSCULTATION: clear to auscultation bilaterally Cardio: COMMON NORMALS: regular rate and regular rhythm RATE: regular rate RHYTHM: regular rhythm GI: COMMON NORMALS: Soft to palpation PALPATION: Yes Soft to palpation and No Tenderness to palpation present (GI) Extremity: GENERAL: Yes normal exam except as noted and No edema Neuro: COMMON NORMALS: patient oriented x3, CN's II-XII intact bilaterally, moves all extremities, no focal motor deficits and no sensory deficits noted SENSORIUM/ORIENTATION: Yes alert and No Orientation impaired Psych: COMMON NORMALS: mental status grossly normal and Normal thought process present THOUGHT PROCESS: Normal thought process present Course Vital Signs: Vital signs: Vital Signs Temperature 98.3 F 05/18/22 13:55 Pulse Rate 88 05/18/22 13:55 Respiratory Rate 18 05/18/22 13:55 Blood Pressure 153/68 05/18/22 13:55 Pulse Oximetry 97 05/18/22 13:55 Oxygen Delivery Me thod 05/18/22 11:57 [facility] - General Adult Medical Decision Making 82-year-old gentleman presenting for abnormal labs. Mildly symptomatic however no focal deficits. Exam as above. Patient is nontoxic. EKG notable for sinus rhythm, normal axis and intervals, incomplete right bundle branch block with nonspecific ST segment abnormalities, no STEMI. Labs with no significant hematologic abnormalities. Metabolic panel with hyponatremia and hyperkalemia, renal function is preserved. Urinalysis is pending. Chest x-ray with no lobar consolidation or pneumothorax. IV fluids given. Most likely etiology of patient's symptoms is electrolyte derangement resulting in metabolic encephalopathy. The results of ED evaluation were discussed with the patient including plan for admission due to requirement for level of care not available if discharged to prevent significant worsening/deterioration. Patient agreeable with plan. Discussed with hospitalist service who was agreeable to admit patient. Medical Records I reviewed the patient's medical records. Lab Data I reviewed the patient's lab results. 05/18/22 04:54 05/18/22 04:54 Radiology Impressions Chest X-Ray 05/15/22 20:08 IMPRESSION: No acute findings. Laboratory Results WBC 7.2 10^3/uL (4.0-10.0) 05/15/22 17:47 RBC 4.86 10^6/uL (4.1-5.3) 05/15/22 17:47 Hgb 14.5 g/dL (11.7-16.6) 05/15/22 17:47 Hct 43.6 % (42.0-52.0) 05/15/22 17:47 MCV 89.7 fl (80-94) 05/15/22 17:47 MCH 29.8 pg (28.0-34.0) 05/15/22 17:47 MCHC 33.3 g/dL (30.0-36.0) 05/15/22 17:47 RDW 13.1 % (12.1-15.1) 05/15/22 17:47 Plt Count 269 10^3/cmm (130-400) 05/15/22 17:47 MPV 9.4 fL (7.4-10.4) 05/15/22 17:47 Neut % (Auto) 59.0 % 05/15/22 17:47 Lymph % (Auto) 21.5 % 05/15/22 17:47 [place] % (Auto) 14.3 % 05/15/22 17:47 Eos % (Auto) 3.0 % 05/15/22 17:47 Baso % (Auto) 0.7 % 05/15/22 17:47 Neut # (Auto) 4.26 10^3/uL (1.8-7.7) 05/15/22 17:47 Lymph # (Auto) 1.6 10^3/uL (0.8-4.8) 05/15/22 17:47 [place] # (Auto) 1.0 10^3/uL (0.2-0.9) H 05/15/22 17:47 Eos # (Auto) 0.2 10^3/uL (0.0-0.8) 05/15/22 17:47 Baso # (Auto) 0.1 10^3/uL (0.0-0.1) 05/15/22 17:47 Nucleated RBC % (auto) 0 % 05/15/22 17:47 Nucleated RBCs # 0.0 /100WBC 05/15/22 17:47 Sodium 118 mmol/L (136-145) L* 05/15/22 17:47 Potassium 5.6 mmol/L (3.5-5.1) H 05/15/22 17:47 Chloride 82 mmol/L (98-107) L 05/15/22 17:47 Carbon Dioxide 29 mmol/L (22-29) 05/15/22 17:47 Anion Gap 12.6 (5-19) 05/15/22 17:47 BUN 24 mg/dL (8-23) H 05/15/22 17:47 Creatinine 0.8 mg/dL (0.7-1.2) 05/15/22 17:47 GFR Calculation Not Reportable 05/15/22 17:47 Glucose 124 mg/dL (65-115) H 05/15/22 17:47 Serum Osmolality 262 mOsm/kg (278-305) L 05/15/22 17:47 Calculated Osmolality 251 mOsm/kg (285-295) L 05/15/22 17:47 Calcium 9.3 mg/dL (8.5-10.5) 05/15/22 17:47 Discharge Plan Discharge Patient Disposition: Admitted As Inpatient Admit Provider: Emeli Acharya Clinical Impression: Hyponatremia, Hyperkalemia, Generalized weakness, Metabolic encephalopathy Condition: Stable Discharge Diet: Regular and Diabetic Discharge Activity: Resume usual activity and Increase activity as tolerated Coding Level of Care Code ED [employer] for Eber Meneses
--- NOTE | 2022-05-15 17:09 | ECG_ITS ---
[facility] Test Date: 2022-05-15 Pat Name: Darius Kowalski Department: Room: Gender: Male Senior Network Administrator: : 1940 Requested By: Emir Lopez Order Number: [id number] Webb MD: Praveena Dotson M.D. Measurements Intervals [place] Rate: 98 P: 75 MT: 152 QRS: 83 QRSD: 101 T: 77 QT: 317 QTc: 405 Interpretive Statements SINUS RHYTHM INCOMPLETE RIGHT BUNDLE BRANCH BLOCK [90+ ms QRS DURATION, TERMINAL R IN V1/V2, 40+ ms S IN I/aVL/V4/V5/V6] INTERPRETATION BASED ON A DEFAULT AGE OF 40 YEARS Compared to ECG 04/18/2022 15:25:38 Incomplete right bundle-branch block now present Electronically Signed On 05-15-2022 20:05:34 [employer] ARTIST by Praveena Dotson M.D. [email or web address]
[2022-05-15 17:55] LABS: Basophils # 0.1 10^3/uL (0.0-0.1); Basophils % 0.7 %; Eosinophils # 0.2 10^3/uL (0.0-0.8); Hematocrit 43.6 % (42.0-52.0); Hemoglobin 14.5 g/dL (11.7-16.6); Lymphocytes # 1.6 10^3/uL (0.8-4.8); Lymphocytes % 21.5 %; Mean Corpuscular HGB Conc 33.3 g/dL (30.0-36.0); Mean Corpuscular Hemoglobin 29.8 pg (28.0-34.0); Mean Corpuscular Volume 89.7 fl (80-94); Mean Platelet Volume 9.4 fL (7.4-10.4); Monocytes % 14.3 %; Neutrophils # 4.26 10^3/uL (1.8-7.7); Nucleated Red Blood Cells % 0 %; Platelet Count 269 10^3/cmm (130-400); Red Blood Count 4.86 10^6/uL (4.1-5.3); Red Cell Distribution Width 13.1 % (12.1-15.1); White Blood Count 7.2 10^3/uL (4.0-10.0)
[2022-05-15 18:14] LABS: Anion Gap 12.6 (5-19); Blood Urea Nitrogen 24 mg/dL (8-23); Calcium 9.3 mg/dL (8.5-10.5); Carbon Dioxide 29 mmol/L (22-29); Chloride 82 mmol/L (98-107); Glucose 124 mg/dL (65-115); Osmolality Calculated 251 mOsm/kg (285-295); Potassium 5.6 mmol/L (3.5-5.1)
[2022-05-15 18:19] LABS: Sodium 118 mmol/L (136-145)
[2022-05-15] MEDS: sodium chloride 0.9% 1,000 ML 100 ML IV (19:52)
--- NOTE | 2022-05-15 20:08 | XRR_ITS ---
PROCEDURE INFORMATION: Exam: XR Chest Exam date and time: 05/15/2022 8:28 PM Age: 82 years old Clinical indication: Other: Low sodium and high potasium; Additional info: Baseline TECHNIQUE: Imaging protocol: Radiologic exam of the chest. Views: 1 view. COMPARISON: CR XR chest 1V portable [id number] 04/18/2022 3:11 PM FINDINGS: Tubes, catheters and devices: Stable right Iaauug-G-Gctd with tip over the mid SVC. Lungs: Atelectasis in the left lung base. The lungs are otherwise clear. Pleural spaces: Unremarkable. No pleural effusion. No pneumothorax. Heart/Mediastinum: Unremarkable. No cardiomegaly. Diaphragm: Stable elevation of the left diaphragm. Bones/joints: Unremarkable. XR/XR chest 1V portable [id number] IMPRESSION: No acute findings.
--- NOTE | 2022-05-15 20:11 | P.HP_ITS ---
Providers/Chief Complaint Admitting Physician: Emeli Acharya MD Primary Care Provider: Jadiel Wheat Chief Complaint: LOW SODIUM AND HIGH K History of Present Illness Darius Kowalski is a 82 year old male with past medical history of metastatic cancer of bladder, recent unstable sacral fracture which was noted to be a pathological fracture with recent spinal fusion done on 04/20/1903/28/2023 and eventually discharged to a intermediate had repeat labs done routinely as an outpatient and was noted to be hyponatremic and hyperkalemic presented to the hospital today for generalized weakness. At discharge at previous hospital stay on 21 April patient did have a UTI for which she was placed on Levaquin for 3 days. Eventually urine culture did not show any growth. He has also been having poor appetite and weakness but otherwise denies any other complaints of abdominal pain, nausea, vomiting, diarrhea. On arrival blood pressure 123/89, respirate 18, pulse 98, temperature 98.7, saturating 93% on room air. EKG showed sinus rhythm. WBC normal. Labs remarkable for sodium 118, potassium 5.6, chloride 82, BUN 24, creatinine 0.8, osmolality 251. 2 days prior his labs showed sodium 123, potassium 5.6, chloride 85. ER started patient on 100 cc normal saline per hour. Medications/Allergies Home Medications Medication Instructions Recorded Confirmed Last Taken Type dorzolamide 2 % eye drops 1 drp ophthalmic (eye) BID 12/16/21 05/04/22 Unknown History gabapentin 300 mg capsule 300 mg PO BID 12/16/21 05/04/22 Unknown History glipizide 2.5 mg tablet, extended 2.5 mg PO QAM 12/16/21 05/04/22 Unknown History release 24 hr latanoprost 0.005 % eye drops 1 drp ophthalmic (eye) BEDTIME 12/16/21 05/04/22 Unknown History lisinopril 5 mg tablet 5 mg PO QAM 12/16/21 05/04/22 Unknown History lovastatin 40 mg tablet 40 mg PO QPM 12/16/21 05/04/22 Unknown History prochlorperazine maleate 10 mg 10 mg PO Q4H PRN Mild Nausea #30 01/26/22 05/04/22 Unknown Rx tablet (Compazine) tabs oxycodone-acetaminophen 5 mg-325 1 - 2 tab PO .Q4-6H PRN pain 30 04/13/22 05/04/22 Unknown Rx mg tablet (Percocet) days #60 tabs fluticasone propionate 50 2 spray intranasal DAILY PRN 04/18/22 05/04/22 Unknown History mcg/actuation nasal Allergy Symptoms spray,suspension ibuprofen 200 mg tablet 400 mg PO Q6H PRN Pain 04/18/22 05/04/22 04/17/22 History levothyroxine 50 mcg tablet 50 mcg PO QAM 04/18/22 05/04/22 Unknown History ondansetron HCl 8 mg tablet 8 mg PO Q8H PRN Nausea And Vomiting 04/18/22 05/04/22 Unknown History prednisone 20 mg tablet See Rx Instructions .Route .COMPLEX 04/18/22 05/04/22 04/17/22 History pt state has 2 tabs timolol maleate 0.5 % eye drops 1 drp ophthalmic (eye) BID 04/18/22 05/04/22 Unknown History Intraoperative Neuromonitoring #1 ea 04/20/22 05/04/22 Unknown Rx pantoprazole 40 mg tablet,delayed 40 mg PO DAILY 30 days #30 tabs 04/21/22 05/04/22 Unknown Rx release Allergies Allergy/AdvReac Type Severity Reaction Status Date / Time amoxicillin Allergy ALGY-Rash Verified 05/04/22 14:54 benzonatate Allergy ALGY-Rash Verified 05/04/22 14:54 Beta-Blockers Allergy ALGY-Wheezi Verified 05/04/22 14:54 (Beta-Adrenergic Bloc ng brimonidine Allergy ALGY-Swell Verified 05/04/22 14:54 Lip/Tongue/Throat guaifenesin Allergy ADR-Itching Verified 05/04/22 14:54 nitrofurantoin Allergy ALGY-Rash Verified 05/04/22 14:54 sulfamethoxazole Allergy ALGY-Rash Verified 05/04/22 14:54 [From Sulfamethoxazole-Trimethoprim] trimethoprim Allergy ALGY-Rash Verified 05/04/22 14:54 [From Sulfamethoxazole-Trimethoprim] PFSH Acute PFSH: Medical History 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 Family History Father CAD (coronary artery disease) age 83 Diabetes Hypertension Mother Rheumatoid arthritis Other Hyperlipidemia Denies family history of Clotting disorder Dementia Psychiatric illness Chronic kidney disease (CKD) Suicide Anesthesia complication Bleeding disorder Lung disease Cancer Stroke Social History Smoking and tobacco status: former smoker (smoked x 23 years) Alcohol intake: never Vitals/I&O/Wt Last Vital Signs Temp 98.7 F 05/15/22 16:57 Pulse 97 05/15/22 20:03 Resp 16 05/15/22 20:03 BP 103/56 05/15/22 20:03 Pulse Ox 95 05/15/22 20:03 Weight last 48 hrs Weight 65.771 kg Physical Exam Narrative: General: Alert oriented x3, patient seen laying in bed appearing comfortable at this time saturating 95% on room air. HEENT: Normocephalic, atraumatic, EOMI, breathing comfortably. Cardio: Regular rate rhythm, normal S1-S2, .Mediport present on right side of chest Respiratory: CTA b/l, no wheezes or ronchi GI: Abdomen soft, nontender, nondistended, bowel sounds + Extremities: No edema Vincent draining bloody urine. 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 -Check urinalysis ? Check urine, serum osmolalities, urine sodium ? Check cortisol level ? We will treat hyperkalemia with D50 amp, regular insulin 10 units IV push x1, calcium gluconate 1 g ? Repeat BMP every 4 hours ? Patient appears quite dehydrated and dry. We will start normal saline at 75 cc/h. ? Patient's sodium was 120 2 days prior. We will treat as a chronic hyponatremia as it seems to be greater than 48 hours. Labs prior to that are from 21 April at which point sodium was 130. Patient does not seem to have any mental status changes. -I will hold glipizide at this time, gabapentin ? Continue levothyroxine ? Check TSH ? Patient's home medications will need to be confirmed in AM. ? Hold NSAIDs ? We will order oxycodone for pain every 4 hours as needed. - If urinalysis is abnormal, will order urine culture. -Check baseline chest x-ray. -Patient had blood clots in Vincent after Vincent was inserted. It was not a tr aumatic insertion as per the nurse. However she later did tell me that she met some resistance but still advanced a Vincent. This may have been the cause of hematuria. Patient is not in any pain at this time. We will start on manual bladder irrigation. Discussed with nurse. ? It seems urine is starting to clear out. Consider consulting urology in a.m. 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
[2022-05-15 20:55] LABS: Glucose Point of Care 143 mg/dL (70-110)
[2022-05-15] MEDS: insulin regular-human 10 UNIT in SYRINGE 1 EACH IVP (20:58)
[2022-05-15 22:13] LABS: Cortisol Random 16.19 ug/dL (2.47-19.5)
[2022-05-15] MEDS: acetaminophen 325 mg Tablet 650 MG PO (22:16)
[2022-05-15 22:17] LABS: Anion Gap 11.7 (5-19); Blood Urea Nitrogen 24 mg/dL (8-23); Calcium 8.4 mg/dL (8.5-10.5); Carbon Dioxide 28 mmol/L (22-29); Chloride 86 mmol/L (98-107); Glucose 225 mg/dL (65-115); NT Pro B Type Natriuretic Pept 105 pg/mL (0-450); Osmolality Calculated 261 mOsm/kg (285-295); Potassium 5.7 mmol/L (3.5-5.1); Sodium 120 mmol/L (136-145); Thyroid Stimulating Hormone 7.85 uIU/mL (0.27-4.20)
[2022-05-15] MEDS: heparin 5,000 unit/mL INJ 1 mL 5000 UNIT SUBCUT (22:18)
[2022-05-15 22:46] LABS: Urine Random Sodium 53 mmol/L
[2022-05-15] MEDS: calcium gluconate 0.9% NaCL 1 GM/50 ML PREMIX IV (22:57)
[2022-05-15] MEDS: sodium polystyrene sulfonate 15 gm/60 mL Btl PO (22:57)
[2022-05-15 23:42] LABS: Bilirubin Urine Neg (Negative); Blood Urine 3+ (Negative); Glucose Urine UA 2+ (Normal); Ketones Urine Negative (Negative); Nitrate Urine Negative (Negative); Protein Urine 1+ (Negative); Urine Appearance Cloudy (CLEAR); Urine Color Yellow (Yellow); pH Urine 7 (5-7)
[2022-05-15 23:43] LABS: Add Urine Culture? Yes; Add Urine Microscopic? YES; Bacteria Urine 2+ /hpf; Leukocyte Esterase Urine 2+ (Negative); RBC Urine TOO NUMEROUS TO CNT /hpf (0-2); Urobilinogen Urine 8 mg/dL (Negative); WBC Urine TOO NUMEROUS TO CNT /hpf (0-5)
[2022-05-16 01:02] LABS: Free T4 Free Thyroxine 1.18 ng/dL (0.82-1.77)
--- NOTE | 2022-05-16 01:26 | PC.NURSE ---
Patient had hematuria and small clots in maier catheter tubing. Dr. Acharya ordered Q4H manual bladder irrigation. Patient manually flushed with 200 ml of sterile water and return of 200 ml containing pink tinged hematuria and small blood clots.
[2022-05-16 03:14] LABS: Anion Gap 12.4 (5-19); Blood Urea Nitrogen 20 mg/dL (8-23); Calcium 8.3 mg/dL (8.5-10.5); Carbon Dioxide 26 mmol/L (22-29); Chloride 88 mmol/L (98-107); Glucose 135 mg/dL (65-115); Osmolality Calculated 259 mOsm/kg (285-295); Potassium 4.4 mmol/L (3.5-5.1); Sodium 122 mmol/L (136-145)
[2022-05-16 04:00] VITALS: BP 111/66; PULSE 88; RESP 17; TEMP 36.8; O2SAT 94
--- NOTE | 2022-05-16 05:03 | PC.NURSE ---
Irrigated with 100ml of sterile water, return contained 100ml pink tinged with one small clot.
[2022-05-16] MEDS: sodium chloride 0.9% 1,000 ML 100 ML IV ×2 (05:34→19:23)
[2022-05-16] MEDS: lisinopril 5 mg Tablet PO (05:37)
[2022-05-16] MEDS: levothyroxine 50 mcg Tablet PO (05:37)
[2022-05-16 05:44] LABS: Basophils % 0.5 %; Eosinophils # 0.1 10^3/uL (0.0-0.8); Eosinophils % 1.2 %; Hematocrit 35.3 % (42.0-52.0); Hemoglobin 11.9 g/dL (11.7-16.6); Lymphocytes # 1.2 10^3/uL (0.8-4.8); Lymphocytes % 20.4 %; Mean Corpuscular HGB Conc 33.7 g/dL (30.0-36.0); Mean Corpuscular Hemoglobin 30.3 pg (28.0-34.0); Mean Corpuscular Volume 89.8 fl (80-94); Mean Platelet Volume 9.3 fL (7.4-10.4); Monocytes # 0.8 10^3/uL (0.2-0.9); Monocytes % 13.7 %; Neutrophils # 3.64 10^3/uL (1.8-7.7); Neutrophils % 62.5 %; Nucleated Red Blood Cells % 0 %; Platelet Count 206 10^3/cmm (130-400); Red Blood Count 3.93 10^6/uL (4.1-5.3); White Blood Count 5.8 10^3/uL (4.0-10.0)
[2022-05-16 06:06] LABS: Anion Gap 12.5 (5-19); Blood Urea Nitrogen 17 mg/dL (8-23); Calcium 7.9 mg/dL (8.5-10.5); Carbon Dioxide 26 mmol/L (22-29); Chloride 89 mmol/L (98-107); Glucose 134 mg/dL (65-115); Magnesium 1.6 mg/dL (1.7-2.3); Osmolality Calculated 260 mOsm/kg (285-295); Phosphorus 2.7 mg/dL (2.5-4.5); Potassium 4.5 mmol/L (3.5-5.1); Sodium 123 mmol/L (136-145)
[2022-05-16 08:00] VITALS: BP 107/64; PULSE 82; RESP 16; TEMP 36.5; O2SAT 95
[2022-05-16 08:51] VITALS: BP 107/64; PULSE 82; RESP 16; TEMP 36.5
[2022-05-16] MEDS: pantoprazole DR 40 mg Tablet PO (08:53)
[2022-05-16] MEDS: heparin 5,000 unit/mL INJ 1 mL 5000 UNIT SUBCUT ×2 (08:54→20:40)
--- NOTE | 2022-05-16 10:11 | PM.CONSULT ---
Providers/Reason For Consult Consulting Physician/Specialty*: [facility]/Nephrology Reason for Consult*: Hy[ponatremia and Hypokalemia Attending Physician: Abilio Hernandez MD Primary Care Provider: Jadiel Wheat History of Present Illness History of Present Illness Darius Kowalski is a 82-year-old male with past medical history of metastatic bladder cancer, hypertension, recently underwent spinal fusion and was discharged to rehab facility. Patient was sent from rehab facility to the ER today due to abnormal labs showing hyponatremia with a sodium of 120 and hyperkalemia. Repeat labs in the ED has showed sodium of 118 potassium 5.6. Patient was noted to be clinically dry and he reports decreased p.o. intake. He reports decreased appetite. He is currently receiving normal saline at 100 cc an hour. Sodium most recent sodium is 123. Patient do not have any mental status changes, denies any dizziness no confusion. Review of Systems Narrative: Oter ROS engative Medications/Allergies Home Medications Medication Instructions Recorded Confirmed Last Taken Type dorzolamide 2 % eye drops 1 drp ophthalmic (eye) BID 12/16/21 05/04/22 Unknown History gabapentin 300 mg capsule 300 mg PO BID 12/16/21 05/04/22 Unknown History glipizide 2.5 mg tablet, extended 2.5 mg PO QAM 12/16/21 05/04/22 Unknown History release 24 hr latanoprost 0.005 % eye drops 1 drp ophthalmic (eye) BEDTIME 12/16/21 05/04/22 Unknown History lovastatin 40 mg tablet 40 mg PO QPM 12/16/21 05/04/22 Unknown History fluticasone propionate 50 2 spray intranasal DAILY PRN 04/18/22 05/04/22 Unknown History mcg/actuation nasal Allergy Symptoms spray,suspension levothyroxine 50 mcg tablet 50 mcg PO QAM 04/18/22 05/04/22 Unknown History ondansetron HCl 8 mg tablet 8 mg PO Q8H PRN Nausea And Vomiting 04/18/22 05/04/22 Unknown History timolol maleate 0.5 % eye drops 1 drp ophthalmic (eye) BID 04/18/22 05/04/22 Unknown History Intraoperative Neuromonitoring #1 ea 04/20/22 05/04/22 Unknown Rx pantoprazole 40 mg tablet,delayed 40 mg PO DAILY 30 days #30 tabs 04/21/22 05/04/22 Unknown Rx release acetaminophen 325 mg tablet 325 mg PO Q6H PRN Pain 05/16/22 05/16/22 Unknown History bisacodyl 10 mg rectal suppository 10 mg OR DAILY PRN Constipation 05/16/22 05/16/22 Unknown History (Dulcolax (bisacodyl)) mirtazapine 15 mg tablet (Remeron) 15 mg PO BEDTIME 05/16/22 05/16/22 05/15/22 History sitagliptin phosphate 50 mg tablet 50 mg PO DAILY 05/16/22 05/16/22 05/15/22 History (Januvia) sodium chloride 1,000 mg soluble 1,000 mg PO BEDTIME 05/16/22 05/16/22 Unknown History tablet Allergies Allergy/AdvReac Type Severity Reaction Status Date / Time amoxicillin Allergy ALGY-Rash Verified 05/04/22 14:54 benzonatate Allergy ALGY-Rash Verified 05/04/22 14:54 Beta-Blockers Allergy ALGY-Wheezi Verified 05/04/22 14:54 (Beta-Adrenergic Bloc ng brimonidine Allergy ALGY-Swell Verified 05/04/22 14:54 Lip/Tongue/Throat guaifenesin Allergy ADR-Itching Verified 05/04/22 14:54 nitrofurantoin Allergy ALGY-Rash Verified 05/04/22 14:54 sulfamethoxazole Allergy ALGY-Rash Verified 05/04/22 14:54 [From Sulfamethoxazole-Trimethoprim] trimethoprim Allergy ALGY-Rash Verified 05/04/22 14:54 [From Sulfamethoxazole-Trimethoprim] Current Medications Generic Name Dose Route Start Last Admin Trade Name Freq PRN Reason Stop Dose Admin Acetaminophen 650 mg 05/15/22 20:34 05/15/22 22:16 Acetaminophen 325 Mg Tablet PO 650 mg Q6H PRN Administration Mild/Mod Pain Or Temp >/= 101 Heparin Sodium (Porcine) 5,000 unit 05/15/22 20:45 05/16/22 08:54 Heparin 5,000 Unit/Ml Inj 1 Ml SUBCUT 5,000 unit Q12H SANDY Administration Sodium Chloride 1,000 mls @ 100 mls/hr 05/15/22 19:00 05/16/22 05:34 Sodium Chloride 0.9% IV 100 mls/hr .Q10H SANDY Administration Levothyroxine Sodium 50 mcg 05/16/22 06:00 05/16/22 05:37 Levothyroxine 50 Mcg Tablet PO 50 mcg QAM SANDY Administration Pantoprazole Sodium 40 mg 05/16/22 09:00 05/16/22 08:[address] 40 Mg Tablet PO 40 mg DAILY SANDY Administration PFSH Acute PFSH: Medical History 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 Family History Father CAD (coronary artery disease) age 83 Diabetes Hypertension Mother Rheumatoid arthritis Other Hyperlipidemia Denies family history of Clotting disorder Dementia Psychiatric illness Chronic kidney disease (CKD) Suicide Anesthesia complication Bleeding disorder Lung disease Cancer Stroke Social History Smoking and tobacco status: former smoker (smoked x 23 years) Alcohol intake: never Vitals/I&O/Wt Last Vital Signs Temp 97.7 F 05/16/22 08:51 Pulse 82 05/16/22 08:51 Resp 16 05/16/22 08:51 BP 107/64 05/16/22 08:51 Pulse Ox 95 05/16/22 08:00 O2 Del Method 05/16/22 08:00 05/15/22 05/16/22 05/16/22 22:59 06:59 14:59 Intake Total 50.1 / 50.1 1020 / 1070.1 240 / 240 Output Total 350 / 350 400 / 750 Balance -299.9 / -299.9 620 / 320.1 240 / 240 Weight last 48 hrs Weight 70.052 kg Weight 65.771 kg Physical Exam Narrative: Patient alert, oriented, no acute distress, clear to auscultation bilaterally per report, S1-S2 regular rate and rhythm per report, abdomen soft nontender per report, no edema per report. Urinary Catheter Management: Vincent: Cath Placed During This Visit: yes Reason for Continuing Indwelling Catheter: Other Urinary Catheter Date of Insertion: 05/15/22 Urinary Catheter Time of Insertion: 22:26 Data 05/16/22 05:33 05/16/22 05:33 A&P Assessment and plan (1) Hyponatremia: 1. Hyponatremia: Likely acute on chronic, patient do not have any mental status changes or dizziness currently. Sodium was 118 on presentation improved to 123 currently with normal saline. Decrease normal saline rate to 75 cc an hour. Avoid rapid correction, 6 to 8 mg correction in 24 hours.. Urine sodium 53, urine osmolality pending. Await repeat BMP, if sodium rising rapidly will drop normal saline rate versus stopping normal saline infusion. 2. Hyperkalemia: Sodium was 5.7, improved to 4.5 currently, low K diet advised. Patient evaluated using audiovisual cart (2) Hyperkalemia: Consult Attestations Medical Necessity Statement: needs inpt stay Time Spent in Patient Care: 45 min Coding Level of Care Code Acute Code for [facility] Diagnoses Hyponatremia E87.1 Hyperkalemia E87.5
[2022-05-16 10:18] LABS: Anion Gap 13.2 (5-19); Blood Urea Nitrogen 14 mg/dL (8-23); Calcium 7.4 mg/dL (8.5-10.5); Carbon Dioxide 24 mmol/L (22-29); Chloride 89 mmol/L (98-107); Glucose 202 mg/dL (65-115); Osmolality Calculated 260 mOsm/kg (285-295); Potassium 4.2 mmol/L (3.5-5.1); Sodium 122 mmol/L (136-145)
[2022-05-16] MEDS: hydrocortisone 100 mg/2 mL SDV IVP (10:18)
[2022-05-16 11:48] VITALS: BP 106/65; PULSE 86; RESP 17; TEMP 36.7; O2SAT 94
[2022-05-16 12:09] LABS: Chol HDL Ratio 2.65 mg/dL (1.0-5.00); Cholesterol 98 mg/dL (0-200); HDL Cholesterol 37 mg/dL (60-100); Iron 41 ug/dL (59-158); LDL Cholesterol Calculated 45 mg/dL (50-129); Percent Saturation 20.3 % (20-50); Total Iron Binding Capacity 201 mcg/dl; Triglycerides 81 mg/dL (0-150); Unsaturated Iron Binding 160 ug/dL (112-347); VLDL Cholestrol Calculation 16 mg/dL (0-30)
[2022-05-16 12:23] LABS: Vitamin B12 443 pg/mL (232-1245)
[2022-05-16 12:26] LABS: Estmated Average Glucose 166; Hemoglobin A1C 7.4 % (4.0-6.0)
[2022-05-16 14:20] LABS: Anion Gap 12.3 (5-19); Blood Urea Nitrogen 13 mg/dL (8-23); Calcium 7.7 mg/dL (8.5-10.5); Carbon Dioxide 26 mmol/L (22-29); Chloride 88 mmol/L (98-107); Glucose 223 mg/dL (65-115); Osmolality Calculated 261 mOsm/kg (285-295); Potassium 4.3 mmol/L (3.5-5.1); Sodium 122 mmol/L (136-145)
[2022-05-16 14:39] LABS: Folate Level 10.1 ng/mL (4.5-32.2)
--- NOTE | 2022-05-16 15:38 | P.PN_ITS ---
Subjective Subjective: Admitted overnight. H&P and labs appreciated. On examination patient lying comfortably in bed. Complaining of weakness and mild nausea. Patient otherwise alert and awake. Has remained hemodynamically stable and afebrile. Vitals/I&O/Wt Last Vital Signs Temp 98.0 F 05/16/22 11:48 Pulse 86 05/16/22 11:48 Resp 17 05/16/22 11:48 BP 106/65 05/16/22 11:48 Pulse Ox 94 05/16/22 11:48 O2 Del Method 05/16/22 11:48 05/16/22 05/16/22 05/16/22 06:59 14:59 22:59 Intake Total 1020 / 1070.1 480 / 480 Output Total 400 / 750 Balance 620 / 320.1 480 / 480 Weight last 48 hrs Weight 70.052 kg Weight 65.771 kg Physical Exam Narrative: General: Alert oriented x3, patient seen laying in bed appearing comfortable at this time saturating 95% on room air. HEENT: Normocephalic, atraumatic, EOMI, breathing comfortably. Cardio: Regular rate rhythm, normal S1-S2, .Mediport present on right side of chest Respiratory: CTA b/l, no wheezes or ronchi GI: Abdomen soft, nontender, nondistended, bowel sounds + Extremities: No edema Urinary Catheter Management: Vincent: Cath Placed During This Visit: yes Reason for Continuing Indwelling Catheter: Other Urinary Catheter Date of Insertion: 05/15/22 Urinary Catheter Time of Insertion: 22:26 Data 05/16/22 05:33 05/16/22 13:45 A&P Assessment and plan (1) Hyponatremia: Acute on chronic. Baseline around 130. Most likely secondary to poor oral intake and possibly from Remeron. Continue to hold Remeron. Appreciate nephrology recommendations. Monitor BMP every 4 hours. Target sodium improvement of 6 to 8 units in 24 hours. Continue with IV hydration with normal saline at 75 cc/h. Sodium levels trending down we will start on salt tablets. (2) Hyperkalemia: Resolved. (3) Generalized weakness: (4) Metabolic encephalopathy: Resolving. Most likely secondary to hyponatremia. Urinalysis appreciated as well. Concerning for traumatic Vincent. Does have WBC and positive leukoesterase. UTI for now less likely as there is no history of fever and no leukocytosis. Patient is a poor historian. For now start on IV ceftriaxone. Repeat urinalysis. We will DC de-escalate antibiotics if patient remains hemodynamically stable and afebrile depending on repeat urinalysis. 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 Insulin sliding scale at low-dose protocol. Hold off on OHA's. Plan Concerns for adrenal insufficiency. 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 Cortisol level within normal limits when checked on admission. Patient is hemodynamically stable. Blood pressure is normal. Hold off on stress dose steroids for now. Restart home dose of gabapentin, atorvastatin. Hold off on Remeron. Full code. Carb consistent diet. DVT prophylaxis: Heparin SQ twice daily Attestations Medical Necessity Statement*: Requires further hospitalization for management of generalized weakness in setting of acute on chronic hyponatremia Coding Level of Care Code 92366 Moderate MDM includes risk/complexity, reviewing previous or external records, reviewing test results, ordering lab/other test(s), speaking with independent historian (other than patient), independently interpretating test(s) (not separately recorded) and discussion of management or test(s) w/ other healthcare professional and Moderate Time for a total of 40 minutes, includes reviewing past or interval history, examining/interviewing patient, placing orders, counseling patient/family/other support, updating patient/family/other support, discussing plan of care with staff, communicating with other healthcare jose e gupta, documenting encounter and coordinating care Diagnoses Hyponatremia E87.1 Hyperkalemia E87.5 Generalized weakness R53.1 Metabolic encephalopathy G93.41 Status post lumbar spinal fusion Z98.1 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
[2022-05-16 16:00] VITALS: BP 119/62; PULSE 102; RESP 17; TEMP 36.8; O2SAT 92
[2022-05-16] MEDS: acetaminophen 325 mg Tablet 650 MG PO (17:37)
[2022-05-16 17:43] LABS: Glucose Point of Care 230 mg/dL (70-110)
[2022-05-16 18:51] LABS: Anion Gap 12.2 (5-19); Blood Urea Nitrogen 12 mg/dL (8-23); Calcium 8.2 mg/dL (8.5-10.5); Carbon Dioxide 26 mmol/L (22-29); Chloride 90 mmol/L (98-107); Glucose 252 mg/dL (65-115); Osmolality Calculated 266 mOsm/kg (285-295); Potassium 4.2 mmol/L (3.5-5.1); Sodium 124 mmol/L (136-145)
[2022-05-16] MEDS: gabapentin 300 mg Capsule PO (19:01)
[2022-05-16] MEDS: cefTRIAXone 1,000 MG in sodium chloride 0.9% (plus) 50 ML 100 MG IV (19:01)
[2022-05-16] MEDS: sodium chloride 1 gm Tablet PO (19:01)
[2022-05-16] MEDS: atorvastatin 40 mg Tablet 20 MG PO (19:02)
[2022-05-16] MEDS: insulin lispro 100 unit/1 mL SUBCUT ×2 (19:22→20:40)
[2022-05-16 20:00] VITALS: BP 102/60; PULSE 92; RESP 14; TEMP 36.8; O2SAT 96
[2022-05-16 21:49] LABS: Glucose Point of Care 221 mg/dL (70-110)
[2022-05-17] VITALS (8 sets, daily range): BP systolic 104–151; BP diastolic 62–74; PULSE 78–104; RESP 14–18; TEMP 36.4–36.9; O2SAT 95–97
[2022-05-17 00:56] LABS: Blood Urine 3+ (Negative); Glucose Urine UA 4+ (Normal); Ketones Urine 1+ (Negative); Nitrate Urine Negative (Negative); Protein Urine 2+ (Negative); Specific Gravity, Urine 1.015 (1.005-1.030); Urine Appearance Cloudy (CLEAR); Urine Color Other (Yellow); pH Urine 6 (5-7)
[2022-05-17 00:57] LABS: Add Urine Microscopic? YES; Bacteria Urine 2+ /hpf; Bilirubin Urine Neg (Negative); Leukocyte Esterase Urine 2+ (Negative); RBC Urine TOO NUMEROUS TO CNT /hpf (0-2); Squamous Epithelial Cell Urine 0-4 /hpf (0-5); Urobilinogen Urine 4 mg/dL (Negative); WBC Urine TOO NUMEROUS TO CNT /hpf (0-5)
[2022-05-17 00:58] LABS: Add Urine Culture? Yes
[2022-05-17] MEDS: levothyroxine 50 mcg Tablet PO (05:27)
[2022-05-17 05:41] LABS: Basophils % 0.3 %; Eosinophils # 0.1 10^3/uL (0.0-0.8); Hematocrit 33.1 % (42.0-52.0); Hemoglobin 10.7 g/dL (11.7-16.6); Lymphocytes # 1.3 10^3/uL (0.8-4.8); Lymphocytes % 21.4 %; Mean Corpuscular HGB Conc 32.3 g/dL (30.0-36.0); Mean Corpuscular Hemoglobin 29.2 pg (28.0-34.0); Mean Corpuscular Volume 90.4 fl (80-94); Mean Platelet Volume 9.3 fL (7.4-10.4); Monocytes # 0.8 10^3/uL (0.2-0.9); Monocytes % 12.4 %; Neutrophils # 3.83 10^3/uL (1.8-7.7); Neutrophils % 62.8 %; Nucleated Red Blood Cells % 0 %; Platelet Count 193 10^3/cmm (130-400); Red Blood Count 3.66 10^6/uL (4.1-5.3); White Blood Count 6.1 10^3/uL (4.0-10.0)
[2022-05-17 06:04] LABS: Alanine Aminotransferase 26 U/L (0-41); Albumin Level 2.3 g/dL (3.5-5.2); Alkaline Phosphatase 130 U/L (40-130); Anion Gap 8.6 (5-19); Aspartate Amino Transferase 28 U/L (0-40); Blood Urea Nitrogen 10 mg/dL (8-23); Calcium 8.1 mg/dL (8.5-10.5); Carbon Dioxide 27 mmol/L (22-29); Chloride 97 mmol/L (98-107); Globulin 2.7 g/dL (1.3-4.6); Glucose 103 mg/dL (65-115); Osmolality Calculated 267 mOsm/kg (285-295); Potassium 3.6 mmol/L (3.5-5.1); Sodium 129 mmol/L (136-145); Total Bilirubin 0.2 mg/dL (0.15-1.2)
[2022-05-17 06:52] LABS: Glucose Point of Care 100 mg/dL (70-110)
[2022-05-17] MEDS: heparin 5,000 unit/mL INJ 1 mL 5000 UNIT SUBCUT ×2 (08:00→21:40)
[2022-05-17] MEDS: gabapentin 300 mg Capsule PO ×2 (08:01→17:28)
[2022-05-17] MEDS: sodium chloride 1 gm Tablet PO ×2 (08:01→17:27)
[2022-05-17] MEDS: pantoprazole DR 40 mg Tablet PO (08:01)
--- NOTE | 2022-05-17 08:50 | P.PN_ITS ---
Subjective Subjective: feels better Medications: Reviewed: Yes Vitals/I&O/Wt Last Vital Signs Temp 97.6 F 05/17/22 08:00 Pulse 78 05/17/22 08:00 Resp 18 05/17/22 08:00 BP 124/65 05/17/22 08:00 Pulse Ox 97 05/17/22 08:00 O2 Del Method 05/17/22 08:00 05/16/22 05/17/22 05/17/22 22:59 06:59 14:59 Intake Total 0 / 0 Output Total 1649 Balance 1889 -165 / Weight last 48 hrs Weight 70.052 kg Weight 65.771 kg Physical Exam Narrative: Patient alert, oriented, no acute distress, clear to auscultation bilaterally per report, S1-S2 regular rate and rhythm per report, abdomen soft nontender per report, no edema per report. Urinary Catheter Management: Vincent: Cath Placed During This Visit: yes Reason for Continuing Indwelling Catheter: Acute Urinary Retention or Obstruction Urinary Catheter Date of Insertion: 05/15/22 Urinary Catheter Time of Insertion: 22:26 Data 05/17/22 05:25 05/17/22 05:25 A&P Assessment and plan (1) Hyponatremia: 1. Hyponatremia: Likely acute on chronic, patient do not have any mental status changes or dizziness currently. Sodium was 118 on presentation improved to 129 currently with normal saline. Stop IVFs , encourage PO intake , liberal salt intake k ,, will consider salt tabs , u osm pending . Normal cortisol level. Repeat Na level this evening 2. Hyperkalemia : improved , low k diet advised Patient evaluated using audiovisual cart (2) Hyperkalemia: Attestations Medical Necessity Statement*: Requires further hospitalization for management of generalized weakness in setting of acute on chronic hyponatremia Coding Level of Care Code Acute Code for [facility] Fwd Diagnoses Hyponatremia E87.1 Hyperkalemia E87.5
--- NOTE | 2022-05-17 09:50 | PC.CHAP ---
Pastoral Care Encounter/Spiritual Assessment Type of Contact [] Declined acoustical installer visit [] Patient/Family/Request visit [] Outpatient visit [] Follow-up visit [] Physician referral [] Code/Alert [x] Routine visit [] Staff referral [] Actively dying [] Patient sleeping [] Family support [] [] Out of room [] Palliative care [] [] Receiving care in room [] Pre-surgical visit [] Trauma [] Long length of stay [] ICU visit [] Other: Relational/Emotional Strength [x] Patient feels connected with others/family/visitors/staff [] Distress [] Loneliness/isolation [] Abandonment Spirituality of Patient [x] Person of Reny [x] Attends Gnosticist of their Reny x] Believes in Prayer [x] Reads Bible or Amish materials [] There are Spiritual issues to be addressed Drier Tender Interventions [x] Prayer [x] Active listening [x] Non-anxious presence [x] Spiritual/emotional support [] Crisis/trauma care [] Spiritual counseling [] Bereavement support [] Provided bereavement packet [] Provided Bible/devotional materials [] Provided toy/stuffed animal, coloring book to patient or family member [] Provided Communion [] Anointing/[place] [] Salvation [x] Completed spiritual assessment [] Other: Impact on Illness or Injury [] Angry [] Fearful [] Anxious [] Often cries [] Exhaustion [] Unable to work [] Unable to attend nondenominational [] Unable to walk/stand [] Unable to read [] Unable to drive [] Unable to eat/drink [] Unable to sleep [] Unable to be with family [] Patient intubated [] Other: Summary Pt has had an extremely difficult start to 2022. He was in hospital in early April for surgery. His was visiting him and suddenly in his room. They had been 54 years. He takes comfort in knowing she was a Christianity. Pt has a positive attitude despite what he has gone through for the past month. He is expecting to go to rehab before being able to return home. He has numerous family that comes to check in on him and seems to have a healthy support system. Time spent with patient 15m
[2022-05-17 11:52] LABS: Glucose Point of Care 157 mg/dL (70-110)
[2022-05-17] MEDS: insulin lispro 100 unit/1 mL SUBCUT (12:35)
[2022-05-17 13:19] LABS: Osmolality Urine 442 mOsm/kg (50-1200)
[2022-05-17 13:19] LABS: Osmolality Serum 262 mOsm/kg (278-305)
--- NOTE | 2022-05-17 13:20 | P.PN_ITS ---
Subjective Subjective: No acute events overnight. Denies any nausea, vomiting, headache. Today morning on examination laying comfortably in bed. States he is feeling a lot better. He thinks his weakness and tiredness is most likely secondary to new medications started for him recently namely Remeron and Percocet. Medications: Reviewed: Yes Vitals/I&O/Wt Last Vital Signs Temp 97.6 F 05/17/22 08:11 Pulse 78 05/17/22 08:11 Resp 18 05/17/22 08:11 BP 124/65 05/17/22 08:11 Pulse Ox 97 05/17/22 08:00 O2 Del Method 05/17/22 08:00 05/16/22 05/17/22 05/17/22 22:59 06:59 14:59 Intake Total 1890 / 2370 240 / 240 Output Total 1649 / 1999 Balance 1889 / 2019 -1650 / 370 240 / 240 Weight last 48 hrs Weight 70.052 kg Weight 65.771 kg Physical Exam Narrative: General: Alert oriented x3, no acute distress, on room air HEENT: Normocephalic, atraumatic, EOMI, breathing comfortably. Cardio: Regular rate rhythm, normal S1-S2, .Mediport present on right side of chest Respiratory: CTA b/l, no wheezes or ronchi GI: Abdomen soft, nontender, nondistended, bowel sounds + Extremities: No edema Urinary Catheter Management: Vincent: Cath Placed During This Visit: yes, but has since been removed by the nurse Reason for Continuing Indwelling Catheter: Acute Urinary Retention or Obstruction Urinary Catheter Date of Insertion: 05/15/22 Urinary Catheter Time of Insertion: 22:26 Date Urinary Catheter Removed: 05/17/22 Time Urinary Catheter Discontinued: 10:33 Data 05/17/22 05:25 05/17/22 05:25 Micro: Microbiology 05/15/22 20:22 Urine Culture - Final Urine,Clean Catch A&P Assessment and plan (1) Hyponatremia: Acute on chronic. Baseline around 130. Most likely secondary to poor oral intake and possibly from Remeron. Continue to hold Remeron. Appreciate nephrology recommendations. Sodium improved to 129 today. Hold off on normal saline. Repeat sodium levels at 6 PM. Continue with salt tablets. (2) Hyperkalemia: Resolved. (3) Generalized weakness: (4) Metabolic encephalopathy: Resolved. Likely secondary to hyponatremia. Repeat UA yesterday still showing concerns for UTI. Patient denies any complaints. For now continue with IV ceftriaxone and follow-up urine cultures. Will de- escalate according to urine culture results. Resolving. Most likely secondary to hyponatremia. Remove Vincent. Voiding trial. 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 Insulin sliding scale at low-dose protocol. Hold off on OHA's. Plan Concerns for adrenal insufficiency. 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 Cortisol level within normal limits when checked on admission. Patient is hemodynamically stable. Blood pressure is normal. Hold off on stress dose steroids for now. Patient has remained hemodynamically stable off steroids. Restart home dose of gabapentin, atorvastatin. Hold off on Remeron. PT evaluation. Full code. Carb consistent diet. DVT prophylaxis: Heparin SQ twice daily Attestations Medical Necessity Statement*: Requires further hospitalization for management of hyponatremia leading to acute metabolic encephalopathy Coding Level of Care Code 58282 Moderate MDM includes risk/complexity, reviewing previous or external records, reviewing test results, ordering lab/other test(s), independently interpretating test(s) (not separately recorded) and discussion of management or test(s) w/ other healthcare professional and Moderate Time for a total of 35 minutes, includes reviewing past or interval history, examining/interviewing patient, placing orders, counseling patient/family/other support, updating patient/family/other support, discussing plan of care with staff, communicating with other healthcare providers, documenting encounter and coordinating care Diagnoses Hyponatremia E87.1 Hyperkalemia E87.5 Generalized weakness R53.1 Metabolic encephalopathy G93.41 Status post lumbar spinal fusion Z98.1 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
[2022-05-17] MEDS: cefTRIAXone 1,000 MG in sodium chloride 0.9% (plus) 50 ML 100 MG IV (15:57)
[2022-05-17 16:25] LABS: Anion Gap 10.8 (5-19); Blood Urea Nitrogen 11 mg/dL (8-23); Calcium 8.2 mg/dL (8.5-10.5); Carbon Dioxide 25 mmol/L (22-29); Chloride 95 mmol/L (98-107); Glucose 130 mg/dL (65-115); Osmolality Calculated 265 mOsm/kg (285-295); Potassium 3.8 mmol/L (3.5-5.1); Sodium 127 mmol/L (136-145)
[2022-05-17 17:08] LABS: Glucose Point of Care 100 mg/dL (70-110)
[2022-05-17] MEDS: acetaminophen 325 mg Tablet 650 MG PO (17:26)
[2022-05-17] MEDS: atorvastatin 40 mg Tablet 20 MG PO (17:27)
[2022-05-17 21:22] LABS: Glucose Point of Care 104 mg/dL (70-110)
[2022-05-18 04:00] VITALS: BP 136/70; PULSE 84; RESP 16; TEMP 36.9; O2SAT 96
[2022-05-18] MEDS: acetaminophen 325 mg Tablet 650 MG PO (05:05)
[2022-05-18] MEDS: levothyroxine 50 mcg Tablet PO (05:05)
[2022-05-18 05:19] LABS: Basophils % 0.8 %; Eosinophils # 0.2 10^3/uL (0.0-0.8); Eosinophils % 3.3 %; Hematocrit 34.7 % (42.0-52.0); Hemoglobin 11.4 g/dL (11.7-16.6); Lymphocytes # 1.1 10^3/uL (0.8-4.8); Lymphocytes % 21.1 %; Mean Corpuscular HGB Conc 32.9 g/dL (30.0-36.0); Mean Corpuscular Hemoglobin 30.2 pg (28.0-34.0); Mean Corpuscular Volume 91.8 fl (80-94); Mean Platelet Volume 9.3 fL (7.4-10.4); Monocytes # 0.7 10^3/uL (0.2-0.9); Monocytes % 12.7 %; Neutrophils # 2.96 10^3/uL (1.8-7.7); Nucleated Red Blood Cells % 0 %; Platelet Count 179 10^3/cmm (130-400); Red Blood Count 3.78 10^6/uL (4.1-5.3); Red Cell Distribution Width 13.4 % (12.1-15.1); White Blood Count 5.1 10^3/uL (4.0-10.0)
[2022-05-18 05:47] LABS: Alanine Aminotransferase 31 U/L (0-41); Albumin Level 2.6 g/dL (3.5-5.2); Alkaline Phosphatase 133 U/L (40-130); Anion Gap 11.3 (5-19); Aspartate Amino Transferase 31 U/L (0-40); Blood Urea Nitrogen 10 mg/dL (8-23); Calcium 7.8 mg/dL (8.5-10.5); Carbon Dioxide 26 mmol/L (22-29); Chloride 97 mmol/L (98-107); Globulin 2.7 g/dL (1.3-4.6); Glucose 108 mg/dL (65-115); Osmolality Calculated 270 mOsm/kg (285-295); Potassium 4.3 mmol/L (3.5-5.1); Sodium 130 mmol/L (136-145); Total Bilirubin 0.2 mg/dL (0.15-1.2); Total Protein 5.3 g/dL (6.6-8.7)
[2022-05-18 06:29] LABS: Glucose Point of Care 108 mg/dL (70-110)
--- NOTE | 2022-05-18 07:27 | PM.PN ---
Subjective Subjective: feels better Medications: Reviewed: Yes Vitals/I&O/Wt Last Vital Signs Temp 98.5 F 05/18/22 04:00 Pulse 84 05/18/22 04:00 Resp 16 05/18/22 04:00 BP 136/70 05/18/22 04:00 Pulse Ox 96 05/18/22 04:00 O2 Del Method 05/18/22 04:00 05/17/22 05/18/22 05/18/22 22:59 06:59 14:59 Intake Total 290 / 770 Output Total 1650 / 1650 Balance 290 / 770 -1650 / -880 Physical Exam Narrative: Patient alert, oriented, no acute distress, clear to auscultation bilaterally per report, S1-S2 regular rate and rhythm per report, abdomen soft nontender per report, no edema per report. Urinary Catheter Management: Vincent: Cath Placed During This Visit: yes, but has since been removed by the nurse Reason for Continuing Indwelling Catheter: Acute Urinary Retention or Obstruction Urinary Catheter Date of Insertion: 05/15/22 Urinary Catheter Time of Insertion: 22:26 Date Urinary Catheter Removed: 05/17/22 Time Urinary Catheter Discontinued: 10:33 Data 05/18/22 04:54 05/18/22 04:54 Micro: Microbiology 05/15/22 20:22 Urine Culture - Final Urine,Clean Catch A&P Assessment and plan (1) Hyponatremia: 1. Hyponatremia: Likely acute on chronic, patient do not have any mental status changes or dizziness currently. Sodium was 118 on presentation improved to 134 currently with normal saline. Stop IVFs , encourage PO intake , liberal salt intake k ,, continue salt tabs , . Normal cortisol level. 2. Hyperkalemia : improved , low k diet advised Can DC to rehab from nephrology standpoint , continue salt tablets , and Low K diet Patient evaluated using audiovisual cart (2) Hyperkalemia: Attestations Medical Necessity Statement*: can DC to rehab Coding Level of Care Code Acute Code for Chg Fwd Diagnoses Hyponatremia E87.1 Hyperkalemia E87.5
[2022-05-18 08:13] VITALS: BP 138/75; PULSE 83; RESP 16; TEMP 36.9; O2SAT 95
[2022-05-18 08:49] VITALS: BP 153/68; PULSE 88; RESP 18; TEMP 36.8
--- NOTE | 2022-05-18 09:52 | P.DS_ITS ---
Discharge Providers Date of Admission: 05/15/22 19:50 Date of Discharge: May 18, 2022 Attending Provider at Admission: Emeli Acharya MD Attending Provider at Discharge: Abilio Hernandez MD Primary Care Provider: Jadiel Wheat Diagnoses at Discharge Discharge Diagnosis (1) Hyponatremia: Status: Acute (2) Hyperkalemia: Status: Acute Reason for Visit Reason for Visit: LOW SODIUM AND HIGH K Hospital Course Hospital Course Darius Kowalski is a 82 year old male with past medical history of metastatic cancer of bladder, recent unstable sacral fracture which was noted to be a pathological fracture with recent spinal fusion done on 04/20/1903/28/2023 and eventually discharged to a residential had repeat labs done routinely as an outpatient and was noted to be hyponatremic and hyperkalemic presented to the hospital today for generalized weakness.? At discharge at previous hospital stay on 21 April patient did have a UTI for which she was placed on Levaquin for 3 days.? Eventually urine culture did not show any growth.? He has also been having poor appetite and weakness but otherwise denies any other complaints of abdominal pain, nausea, vomiting, diarrhea.? On arrival blood pressure 123/89, respirate 18, pulse 98, temperature 98.7, saturating 93% on room air.? EKG showed sinus rhythm.? WBC normal.? Labs remarkable for sodium 118, potassium 5.6, chloride 82, BUN 24, creatinine 0.8, osmolality 251.? 2 days prior his labs showed sodium 123, potassium 5.6, chloride 85.? ER started patient on 100 cc normal saline per hour. Patient was admitted to the hospital further evaluation and management of hyponatremia and hyperkalemia secondary to dehydration. They were concerned for adrenal insufficiency and start but is cortisol levels are within normal limits and he remained hemodynamically stable off stress dose steroids. Nephrology was consulted on admission. He was treated with IV hydration and starting of oral salt tablets after which her sodium levels gradually improved. He improved symptomatically as well. It is believed his symptoms of hyponatremia are most likely in setting of new Remeron. Patient is requesting not to get any more Percocet. He has been discharged in hemodynamically stable condition on oral salt tablets twice daily, discontinuing of Remeron and Percocet. Instead for pain he will get Tylenol as needed and tramadol as needed. He has been discharged back to SNF for further rehabilitation. Physical Exam Narrative: General: Alert oriented x3, no acute distress, on room air HEENT: Normocephalic, atraumatic, EOMI, breathing comfortably. Cardio: Regular rate rhythm, normal S1-S2, .Mediport present on right side of chest Respiratory: CTA b/l, no wheezes or ronchi GI: Abdomen soft, nontender, nondistended, bowel sounds + Extremities: No edema Urinary Catheter Management: Vincent: Cath Placed During This Visit: yes, but has since been removed by the nurse Reason for Continuing Indwelling Catheter: Acute Urinary Retention or Obstruction Urinary Catheter Date of Insertion: 05/15/22 Urinary Catheter Time of Insertion: 22:26 Date Urinary Catheter Removed: 05/17/22 Time Urinary Catheter Discontinued: 10:33 Discharge Data Studies Completed and Pending Completed Studies During Hospitalization Category Date Time Status XR chest 1V portable [id number] Stat Exams 05/15/22 20:08 Completed Pending at discharge Category Date Time Status Urine Culture Routine Lab 05/16/22 22:35 Received Vitamin D 1,25 Dihydroxy Routine Lab 05/16/22 13:45 Received Radiology Impressions Chest X-Ray 05/15/22 20:08 IMPRESSION: No acute findings. Laboratory Results WBC 5.1 10^3/uL (4.0-10.0) 05/18/22 04:54 RBC 3.78 10^6/uL (4.1-5.3) L 05/18/22 04:54 Hgb 11.4 g/dL (11.7-16.6) L 05/18/22 04:54 Hct 34.7 % (42.0-52.0) L 05/18/22 04:54 MCV 91.8 fl (80-94) 05/18/22 04:54 MCH 30.2 pg (28.0-34.0) 05/18/22 04:54 MCHC 32.9 g/dL (30.0-36.0) 05/18/22 04:54 RDW 13.4 % (12.1-15.1) 05/18/22 04:54 Plt Count 179 10^3/cmm (130-400) 05/18/22 04:54 MPV 9.3 fL (7.4-10.4) 05/18/22 04:54 Neut % (Auto) 58.0 % 05/18/22 04:54 Lymph % (Auto) 21.1 % 05/18/22 04:54 [place] % (Auto) 12.7 % 05/18/22 04:54 Eos % (Auto) 3.3 % 05/18/22 04:54 Baso % (Auto) 0.8 % 05/18/22 04:54 Neut # (Auto) 2.96 10^3/uL (1.8-7.7) 05/18/22 04:54 Lymph # (Auto) 1.1 10^3/uL (0.8-4.8) 05/18/22 04:54 [place] # (Auto) 0.7 10^3/uL (0.2-0.9) 05/18/22 04:54 Eos # (Auto) 0.2 10^3/uL (0.0-0.8) 05/18/22 04:54 Baso # (Auto) 0.0 10^3/uL (0.0-0.1) 05/18/22 04:54 Nucleated RBC % (auto) 0 % 05/18/22 04:54 Nucleated RBCs # 0.0 /100WBC 05/18/22 04:54 Sodium 130 mmol/L (136-145) L 05/18/22 04:54 Potassium 4.3 mmol/L (3.5-5.1) 05/18/22 04:54 Chloride 97 mmol/L (98-107) L 05/18/22 04:54 Carbon Dioxide 26 mmol/L (22-29) 05/18/22 04:54 Anion Gap 11.3 (5-19) 05/18/22 04:54 BUN 10 mg/dL (8-23) 05/18/22 04:54 Creatinine 0.6 mg/dL (0.7-1.2) L 05/18/22 04:54 GFR Calculation Not Reportable 05/18/22 04:54 Glucose 108 mg/dL (65-115) 05/18/22 04:54 POC Glucose 108 mg/dL (70-110) 05/18/22 06:16 Estimat Average Glucose 166 05/16/22 05:33 Hemoglobin A1c 7.4 % (4.0-6.0) H 05/16/22 05:33 Serum Osmolality 262 mOsm/kg (278-305) L 05/15/22 17:47 Calculated Osmolality 270 mOsm/kg (285-295) L 05/18/22 04:54 Calcium 7.8 mg/dL (8.5-10.5) L 05/18/22 04:54 Phosphorus 2.7 mg/dL (2.5-4.5) 05/16/22 05:33 Magnesium 1.6 mg/dL (1.7-2.3) L 05/16/22 05:33 Iron 41 ug/dL (59-158) L 05/16/22 09:42 TIBC 201 mcg/dl 05/16/22 09:42 % Saturation 20.3 % (20-50) 05/16/22 09:42 Unsat Iron Binding 160 ug/dL (112-347) 05/16/22 09:42 Total Bilirubin 0.2 mg/dL (0.15-1.2) 05/18/22 04:54 AST 31 U/L (0-40) 05/18/22 04:54 ALT 31 U/L (0-41) 05/18/22 04:54 Alkaline Phosphatase 133 U/L (40-130) H 05/18/22 04:54 NT-Pro-B Natriuret Pep 105 pg/mL (0-450) 05/15/22 21:33 Total Protein 5.3 g/dL (6.6-8.7) L 05/18/22 04:54 Albumin 2.6 g/dL (3.5-5.2) L 05/18/22 04:54 Globulin 2.7 g/dL (1.3-4.6) 05/18/22 04:54 Triglycerides 81 mg/dL (0-150) 05/16/22 09:42 Cholesterol 98 mg/dL (0-200) 05/16/22 09:42 LDL Cholesterol, Calc 45 mg/dL (50-129) L 05/16/22 09:42 Total VLDL Cholesterol 16 mg/dL (0-30) 05/16/22 09:42 HDL Cholesterol 37 mg/dL (60-100) L 05/16/22 09:42 Cholesterol/HDL Ratio 2.65 mg/dL (1.0-5.00) 05/16/22 09:42 Vitamin B12 443 pg/mL (232-1245) 05/16/22 09:42 Folate 10.1 ng/mL (4.5-32.2) 05/16/22 13:45 TSH 7.85 uIU/mL (0.27-4.20) H 05/15/22 21:33 Free T4 1.18 ng/dL (0.82-1.77) 05/15/22 21:33 Random Cortisol 16.19 ug/dL (2.47-19.5) 05/15/22 21:33 Urine Color Other (Yellow) 05/16/22 22:35 Urine Appearance Cloudy (CLEAR) A 05/16/22 22:35 Urine pH 6 (5-7) 05/16/22 22:35 Ur Specific [place] 1.015 (1.005-1.030) 05/16/22 22:35 Urine Protein 2+ (Negative) H 05/16/22 22:35 Urine Glucose (UA) 4+ (Normal) H 05/16/22 22:35 Urine Ketones 1+ (Negative) H 05/16/22 22:35 Urine Blood 3+ (Negative) H 05/16/22 22:35 Urine Nitrate Negative (Negative) 05/16/22 22:35 Urine Bilirubin Neg (Negative) 05/16/22 22:35 Urine Urobilinogen 4 mg/dL (Negative) H 05/16/22 22:35 Ur Leukocyte Esterase 2+ (Negative) H 05/16/22 22:35 Urine RBC Too numerous to cnt /hpf (0-2) H 05/16/22 22:35 Urine WBC Too numerous to cnt /hpf (0-5) H 05/16/22 22:35 Ur Squamous Epith Cells 0-4 /hpf (0-5) H 05/16/22 22:35 Amorphous Sediment Not Reportable 05/16/22 22:35 Urine Bacteria 2+ /hpf (NONE) H 05/16/22 22:35 Urine Osmolality 442 mOsm/kg (50-1200) 05/15/22 20:22 Ur Random Sodium 53 mmol/L 05/15/22 20:22 Vitals Last Vital Signs Temp 98.4 F 05/18/22 08:13 Pulse 83 05/18/22 08:13 Resp 16 05/18/22 08:13 BP 138/75 05/18/22 08:13 Pulse Ox 95 05/18/22 08:13 O2 Del Method 05/18/22 08:13 Discharge Plan Discharge Patient Disposition: Xfer SNF Condition: Stable Prescriptions: New tramadol 50 mg tablet 50 mg PO Q8H PRN (Reason: pain) Qty: 14 0RF Continued lovastatin 40 mg tablet 40 mg PO QPM glipizide 2.5 mg tablet extended release 24hr 2.5 mg PO QAM gabapentin 300 mg capsule 300 mg PO BID latanoprost 0.005 % drops 1 drp ophthalmic (eye) BEDTIME dorzolamide 2 % drops 1 drp ophthalmic (eye) BID Rx Instructions: both eyes (DME) Intraoperative Neuromonitoring See Rx Instructions .Route .MEDSUPPLY Qty: 1 0RF Rx Instructions: As directed. ondansetron HCl 8 mg tablet 8 mg PO Q8H PRN (Reason: Nausea And Vomiting) timolol maleate 0.5 % drops 1 drp ophthalmic (eye) BID Rx Instructions: each eye fluticasone propionate 50 mcg/actuation spray,suspension 2 spray INTRANASAL DAILY PRN (Reason: Allergy Symptoms) levothyroxine 50 mcg tablet 50 mcg PO QAM pantoprazole 40 mg Tablet,Delayed Release (Dr/Ec) 40 mg PO DAILY 30 Days Qty: 30 0RF acetaminophen 325 mg Tablet 325 mg PO Q6H PRN (Reason: Pain) Dulcolax (bisacodyl) 10 mg Suppository 10 mg UT DAILY PRN (Reason: Constipation) Changed sodium chloride 1,000 mg Tablet,Soluble 1,000 mg PO BID Qty: 30 0RF Januvia 50 mg Tablet 100 mg PO DAILY Qty: 60 0RF Discontinued mirtazapine [Remeron] 15 mg Tablet 15 mg PO BEDTIME Discharge Orders: Discharge Order (Routine); Ordered 05/18/22 Ordered By: Abilio Hernandez Referrals: [facility] [Outside] Jadiel Wheat [Primary Care Provider] - 1 week Discharge Diet: Regular and Diabetic Discharge Activity: Resume usual activity and Increase activity as tolerated Patient Instructions: Opioid Safety Activity Restrictions/Additional Instructions: Your dose of salt tablets have been changed to 1 twice a day. Januvia has been increased to 100 mg daily. Do not take Percocet or Remeron anymore. You can continue taking Tylenol as before for pain or tramadol as needed. Please repeat a BMP in 1 week. Discharge Attestations Time Spent in Discharge Care*: greater than 30 min Specific Discharge Activities: educating patient, discussing with pcp/other providers, discussing with manager case management/social workers/dc planners, documenting/other paperwork and evaluating patient/reviewing data Status at Discharge: Cognitive status at discharge: cognitively intact , Behavioral status at discharge: cooperative , Functional status at discharge: uses cane/walker , Overall status at discharge: patient is progressing back to baseline Quality Metrics Clinical Quality Measures [ No reported AMI, CVA or VTE this stay] Coding Level of Care Code 06779 Total time (in minutes) for Discharge: 50 Diagnoses Hyponatremia E87.1 Hyperkalemia E87.5
[2022-05-18] MEDS: gabapentin 300 mg Capsule PO (10:08)
[2022-05-18] MEDS: sodium chloride 1 gm Tablet PO (10:08)
[2022-05-18] MEDS: pantoprazole DR 40 mg Tablet PO (10:09)
[2022-05-18] MEDS: heparin 5,000 unit/mL INJ 1 mL 5000 UNIT SUBCUT (10:09)
--- NOTE | 2022-05-18 11:02 | PC.SOCIAL ---
Pg 2 IMM Explained to pt Pg 2 IMM. No questions voiced. Provided pt a copy. Initialed, dated, & timed a copy & placed in chart.
[2022-05-18 11:18] LABS: Glucose Point of Care 222 mg/dL (70-110)
[2022-05-18 11:57] VITALS: BP 153/68; PULSE 88; RESP 18; TEMP 36.8; O2SAT 97
[2022-05-18] MEDS: insulin lispro 100 unit/1 mL SUBCUT (12:46)
--- NOTE | 2022-05-18 12:59 | PC.NURSE ---
Called report to Meredith Villalpando LPN at [facility]
[2022-05-18 13:04] LABS: SARS Covid-2 Antigen Negative (Negative)
[2022-05-18 13:55] VITALS: BP 153/68; PULSE 88; RESP 18; TEMP 36.8; O2SAT 97
[2022-05-21 13:34] LABS: Vit D 1,25 (Oh)2, Total 63 pg/mL (18-72); Vit D2 1,25 (Oh)2 <8 pg/mL; Vit D3 1,25 (Oh)2 63 pg/mL
== END 2022-05-18 13:55 | disposition skilled nursing facility (03) | DRG 640 ==
LOC: ER 19:21 → MEDSURG 19:51
PROVIDERS: Admitting Provider Internal Medicine; Emergency Provider Emergency Medicine; PCP Family Medicine; Visit Provider Student in an Organized Health Care Education/Training Program
DX: E87.1 Hypo-osmolality and hyponatremia (principal); G93.41 Metabolic encephalopathy; C77.5 Secondary and unspecified malignant neoplasm of intrapelvic lymph nodes; E87.5 Hyperkalemia; Z98.1 Arthrodesis status; Z87.440 Personal history of urinary (tract) infections; E86.0 Dehydration; Z79.84 Long term (current) use of oral hypoglycemic drugs; Z88.1 Allergy status to other antibiotic agents; Z88.2 Allergy status to sulfonamides; Z87.891 Personal history of nicotine dependence; C67.9 Malignant neoplasm of bladder, unspecified; Z79.899 Other long term (current) drug therapy
CPT/HCPCS: 12345; 36415; 36416; 36591; 51702; 71045; 80048; 80053; 80061; 81001; 82533; 82607; 82652; 82746; 82962; 83036; 83540; 83550; 83735; 83880; 83930; 83935; 84100; 84300; 84439; 84443; 85025; 87086; 87426; 93005; 96372; 96374; 97116; 97161; 97530; 99285; J0610; J0696; J1642; J1644; J1720; J1815; J7030; Q3014

== ENCOUNTER 2022-06-01 08:01 | Oncology outpatient (recurring) (ONCR) | payer MEDICARE, OTHER, SELFPAY ==
[2022-06-01 08:39] LABS: Basophils # 0.1 10^3/uL (0.0-0.1); Eosinophils # 0.2 10^3/uL (0.0-0.8); Eosinophils % 2.8 %; Hematocrit 43.6 % (42.0-52.0); Hemoglobin 13.5 g/dL (11.7-16.6); Lymphocytes # 1.9 10^3/uL (0.8-4.8); Mean Corpuscular Hemoglobin 29.9 pg (28.0-34.0); Mean Corpuscular Volume 96.7 fl (80-94); Mean Platelet Volume 9.6 fL (7.4-10.4); Monocytes # 0.7 10^3/uL (0.2-0.9); Monocytes % 11.4 %; Neutrophils # 3.14 10^3/uL (1.8-7.7); Neutrophils % 51.6 %; Nucleated Red Blood Cells % 0 %; Platelet Count 250 10^3/cmm (130-400); Red Blood Count 4.51 10^6/uL (4.1-5.3); Red Cell Distribution Width 14.6 % (12.1-15.1); White Blood Count 6.1 10^3/uL (4.0-10.0)
[2022-06-01 08:40] VITALS: BMI 23.7
[2022-06-01 09:11] LABS: Alanine Aminotransferase 17 U/L (0-41); Albumin Level 3.2 g/dL (3.5-5.2); Alkaline Phosphatase 121 U/L (40-130); Anion Gap 12.5 (5-19); Aspartate Amino Transferase 22 U/L (0-40); Blood Urea Nitrogen 18 mg/dL (8-23); Calcium 8.8 mg/dL (8.5-10.5); Carbon Dioxide 28 mmol/L (22-29); Chloride 98 mmol/L (98-107); Globulin 3.1 g/dL (1.3-4.6); Glucose 210 mg/dL (65-115); Osmolality Calculated 286 mOsm/kg (285-295); Potassium 4.5 mmol/L (3.5-5.1); Sodium 134 mmol/L (136-145); Thyroid Stimulating Hormone 10.51 uIU/mL (0.27-4.20); Total Bilirubin 0.4 mg/dL (0.15-1.2); Total Protein 6.3 g/dL (6.6-8.7)
[2022-06-01] MEDS: sodium chloride 0.9% 250 ML 75 ML IV (10:29)
[2022-06-01] MEDS: pembrolizumab 200 MG in sodium chloride 0.9% 250 ML 516 MG IV (10:49)
[2022-06-01 11:50] VITALS: BP 128/71; PULSE 78; RESP 16; TEMP 35.8; O2SAT 94
== END 2022-06-06 23:59 | disposition home or self-care (01) ==
PROVIDERS: PCP Family Medicine; Visit Provider Internal Medicine Hematology & Oncology
DX: Z51.12 Encounter for antineoplastic immunotherapy; C67.8 Malignant neoplasm of overlapping sites of bladder; C77.2 Secondary and unspecified malignant neoplasm of intra-abdominal lymph nodes; Z98.1 Arthrodesis status; E03.9 Hypothyroidism, unspecified; Z79.899 Other long term (current) drug therapy; E87.6 Hypokalemia; E87.1 Hypo-osmolality and hyponatremia; Z87.891 Personal history of nicotine dependence
CPT/HCPCS: 72100; 80053; 84443; 85025; 96413; 99024; 99214; J7050; J9271

== ENCOUNTER → 2022-06-16 08:11 | Outpatient (BNVA) | payer MEDICARE, OTHER, SELFPAY | PROVIDERS: PCP Family Medicine; Visit Provider Internal Medicine Hematology & Oncology | DX: E87.1 Hypo-osmolality and hyponatremia (principal); E87.5 Hyperkalemia; E03.9 Hypothyroidism, unspecified; R53.1 Weakness | CPT/HCPCS: 80053; 84443; 85025 ==

== ENCOUNTER 2022-06-22 08:33 | Oncology outpatient (recurring) (ONCR) | payer MEDICARE, OTHER, SELFPAY ==
[2022-06-22] MEDS: pembrolizumab 200 MG in sodium chloride 0.9% 250 ML 516 MG IV (12:14)
[2022-06-22 13:00] VITALS: BP 122/76; PULSE 106; TEMP 37.4
== END 2022-07-07 23:59 | disposition home or self-care (01) ==
PROVIDERS: PCP Family Medicine; Visit Provider Internal Medicine Hematology & Oncology
DX: Z51.12 Encounter for antineoplastic immunotherapy (principal); C67.8 Malignant neoplasm of overlapping sites of bladder; C77.8 Secondary and unspecified malignant neoplasm of lymph nodes of multiple regions; Z79.52 Long term (current) use of systemic steroids; Z79.899 Other long term (current) drug therapy; Z98.1 Arthrodesis status; Z92.3 Personal history of irradiation
CPT/HCPCS: 96413; 99214; J7050; J9271

== ENCOUNTER 2022-06-28 17:16 | Inpatient (IN) | payer MEDICARE, OTHER, SELFPAY ==
--- NOTE | 2022-06-28 17:29 | ECG_ITS ---
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 Measurements Intervals [place] Rate: 102 P: 64 WI: 100 QRS: 95 QRSD: 101 T: 18 QT: 321 QTc: 419 Interpretive Statements SINUS TACHYCARDIA WITH SHORT WI INTERVAL BORDERLINE RIGHT AXIS DEVIATION [QRS AXIS > 90] Compared to ECG 05/15/2022 17:09:07 Short WI interval now present Sinus rhythm no longer present Incomplete right bundle-branch block no longer present Electronically Signed On 06-29-2022 7:41:16 CDT by Micah Arreaga M.D. [email or web address]
--- NOTE | 2022-06-28 17:36 | ED_ITS ---
Documented by User: Milan Nicholson DO 06/28/22 17:50 HPI - General Adult General: Chief complaint: General Medical Stated complaint: NOT EATING/ NOT DRINKING/ DEPRESSED Time Seen by Provider: 06/28/22 17:20 Source: patient Mode of arrival: EMS History of Present Illness: 82-year-old male presents to the emergency room. He states he is weak not eating depressed Spinale with last 3 to 4 weeks he finally came in because he just got tired of trying to get put up with it. He is diabetic he tells me has not been taking anything for his diabetes blood sugars 304 by EMS measurement. He has glipizide listed on his medication list and Sitagliptin. Tells me has not been taking this. He denies any fever sweats chills nausea vomiting diarrhea. No dysuria urgency or frequency. No hematochezia melena hematemesis or coffee-ground emesis. No specific complaint other than just not feeling well and feeling weak. He felt that he can control his diabetes with his diet. Onset (ago): week(s) (3-4) Severity: mild Pain Consistency: constant Relieving factors: none Exacerbating factors: none Associated symptoms: Deny chest pain, confusion, cough, diaphoresis, decreased appetite, dyspnea, fevers/chills, headache(s), malaise, nausea, rash, palpitations, seizures, short of breath, syncope, vomiting or weakness Treatments prior to arrival: none Review of Systems Const: Denies: fever(s), chills, fatigue, malaise or diaphoresis ENMT: Denies: throat pain, ear or mastoid pain, nasal discharge or nasal congestion Card: Denies: chest pain, palpitations or syncope Resp: Denies: dyspnea GI: Denies: abdominal pain, nausea or vomiting : Denies: flank pain, difficulty urinating, dysuria, urinary frequency or urinary urgency Skin/Breast: Denies: rash Neuro: Denies: headache(s) or confusion PFSH ED PFSH: Medical History Bladder cancer Closed pelvic fracture COVID-19 Glaucoma Hypertension Lumbar stenosis with neurogenic claudication Type 2 diabetes mellitus Unspecified fracture of sacrum, initial encounter for closed fracture Surgical History History of bladder surgery Due to bladder cancer, tumors removed. 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 Status post lumbar spinal fusion Family History Father CAD (coronary artery disease) age 83 Diabetes Hypertension Mother Rheumatoid arthritis Other Hyperlipidemia Denies family history of Clotting disorder Dementia Psychiatric illness Chronic kidney disease (CKD) Suicide Anesthesia complication Bleeding disorder Lung disease Cancer Stroke Social History Smoking and tobacco status: former smoker (smoked x 23 years) Alcohol intake: never Physical Exam Const: GENERAL APPEARANCE: cooperative and comfortable ORIENTATION/CONSCIOUSNESS: Yes awake, Yes oriented to person, Yes oriented to place and Yes oriented to time HENMT: COMMON NORMALS: normocephalic, atraumatic and hearing grossly normal bilaterally HEAD & SCALP: normocephalic and atraumatic Resp: COMMON NORMALS: normal respiratory effort, No retractions, No use of accessory muscles and clear to auscultation bilaterally AUSCULTATION: clear to auscultation bilaterally Cardio: COMMON NORMALS: regular rate, regular rhythm and No murmurs present (Cardio) RATE: regular rate RHYTHM: regular rhythm GI: COMMON NORMALS: Soft to palpation and No hepatosplenomegaly present AUSCULTATION: Yes normoactive bowel sounds PALPATION: Yes Soft to palpation, No Tenderness to palpation present (GI), No Guarding due to palpation present (GI) and Yes No hepatosplenomegaly present Extremity: COMMON NORMALS: normal to inspection, capillary refill normal, no clubbing, cyanosis or edema, no calf tenderness and no pedal edema Neuro: SENSORIUM/ORIENTATION: Yes oriented to person, Yes oriented to place and Yes oriented to time Skin: COMMON NORMALS: no rashes or lesions noted GENERAL SKIN EXAM: no rashes or lesions noted Course Vital Signs: Vital signs: Vital Signs Temperature 97.8 F 06/28/22 17:38 Pulse Rate 97 06/28/22 19:46 Respiratory Rate 16 06/28/22 19:46 Blood Pressure 99/58 06/28/22 19:46 Pulse Oximetry 95 06/28/22 19:46 Oxygen Delivery Me thod 06/28/22 19:46 MDM - General Adult Medical Decision Making Care signed out to Dr. Golden at change of shift. See final notes for diagnosis and disposition. Lab Data 06/28/22 17:34 06/28/22 17:34 Radiology Impressions Chest X-Ray 06/28/22 18:26 IMPRESSION: Stable appearance of the chest with prior exam, without acute cardiopulmonary abnormality. Abdomen/Pelvis CT 06/28/22 18:38 IMPRESSION: 1. Suggestion of mild adrenal hyperplasia. 2. Small nonobstructing renal calculus lower pole left kidney. 3. Mild colonic diverticulosis, particularly sigmoid colon, without CT findings of diverticulitis. 4. 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 Abnormal appearance of the urinary bladder in this patient with previous bladder carcinoma, with thickened wall with calcification. 6. Postsurgical hardware L4 through S2 related to prior fusion and stabilization regarding bony changes as noted above. 7. Small umbilical hernia of fat and mild inguinal hernias of fat without bowel content. Laboratory Results WBC 24.2 10^3/uL (4.0-10.0) H 06/28/22 17:34 RBC 4.91 10^6/uL (4.1-5.3) 06/28/22 17:34 Hgb 14.5 g/dL (11.7-16.6) 06/28/22 17:34 Hct 44.3 % (42.0-52.0) 06/28/22 17:34 MCV 90.2 fl (80-94) 06/28/22 17:34 MCH 29.5 pg (28.0-34.0) 06/28/22 17:34 MCHC 32.7 g/dL (30.0-36.0) 06/28/22 17:34 RDW 15.1 % (12.1-15.1) 06/28/22 17:34 Plt Count 142 10^3/cmm (130-400) 06/28/22 17:34 MPV 12.1 fL (7.4-10.4) H 06/28/22 17:34 Neut % (Auto) 87.2 % 06/28/22 17:34 Lymph % (Auto) 5.1 % 06/28/22 17:34 Lawrence % (Auto) 5.0 % 06/28/22 17:34 Eos % (Auto) 0.0 % 06/28/22 17:34 Baso % (Auto) 0.7 % 06/28/22 17:34 Neut # (Auto) 21.10 10^3/uL (1.8-7.7) H 06/28/22 17:34 Lymph # (Auto) 1.2 10^3/uL (0.8-4.8) 06/28/22 17:34 Lawrence # (Auto) 1.2 10^3/uL (0.2-0.9) H 06/28/22 17:34 Eos # (Auto) 0.0 10^3/uL (0.0-0.8) 06/28/22 17:34 Baso # (Auto) 0.2 10^3/uL (0.0-0.1) H 06/28/22 17:34 Nucleated RBC % (auto) 0 % 06/28/22 17:34 Nucleated RBCs # 0.0 /100WBC 06/28/22 17:34 Sodium 126 mmol/L (136-145) L 06/28/22 17:34 Potassium 5.9 mmol/L (3.5-5.1) H 06/28/22 17:34 Chloride 90 mmol/L (98-107) L 06/28/22 17:34 Carbon Dioxide 21 mmol/L (22-29) L 06/28/22 17:34 Anion Gap 20.9 (5-19) H 06/28/22 17:34 BUN 91 mg/dL (8-23) H* D 06/28/22 17:34 Creatinine 2.6 mg/dL (0.7-1.2) H 06/28/22 17:34 GFR Calculation Not Reportable 06/28/22 17:34 Glucose 272 mg/dL (65-115) H 06/28/22 17:34 POC Glucose 144 mg/dL (70-110) H 06/28/22 20:10 Calculated Osmolality 300 mOsm/kg (285-295) H 06/28/22 17:34 Calcium 8.1 mg/dL (8.5-10.5) L 06/28/22 17:34 Magnesium 2.4 mg/dL (1.7-2.3) H 06/28/22 17:34 Total Bilirubin 1.7 mg/dL (0.15-1.2) H 06/28/22 17:34 AST 158 U/L (0-40) H 06/28/22 17:34 ALT 128 U/L (0-41) H 06/28/22 17:34 Alkaline Phosphatase 226 U/L (40-130) H 06/28/22 17:34 Total Protein 6.3 g/dL (6.6-8.7) L 06/28/22 17:34 Albumin 2.3 g/dL (3.5-5.2) L 06/28/22 17:34 Globulin 4.0 g/dL (1.3-4.6) 06/28/22 17:34 Lipase 31 U/L (13-60) 06/28/22 17:34 Urine Color Other (Yellow) 06/28/22 18:29 Urine Appearance Cloudy (CLEAR) A 06/28/22 18:29 Urine pH 5 (5-7) 06/28/22 18:29 Ur Specific [place] 1.020 (1.005-1.030) 06/28/22 18:29 Urine Protein 3+ (Negative) H 06/28/22 18:29 Urine Glucose (UA) Norm (Normal) 06/28/22 18:29 Urine Ketones 1+ (Negative) H 06/28/22 18:29 Urine Blood 3+ (Negative) H 06/28/22 18:29 Urine Nitrate Negative (Negative) 06/28/22 18:29 Urine Bilirubin Neg (Negative) 06/28/22 18:29 Urine Urobilinogen Neg mg/dL (Negative) 06/28/22 18:29 Ur Leukocyte Esterase 2+ (Negative) H 06/28/22 18:29 Urine RBC 80-100 /hpf (0-2) H 06/28/22 18:29 Urine WBC Too numerous to cnt /hpf (0-5) H 06/28/22 18:29 Ur Squamous Epith Cells None /hpf (0-5) 06/28/22 18:29 Amorphous Sediment Not Reportable 06/28/22 18:29 Urine Bacteria 4+ /hpf (NONE) H 06/28/22 18:29 Discharge Plan Discharge Patient Disposition: Admitted As Inpatient Clinical Impression: Acute cystitis, MONICA (acute kidney injury), Acute dehydration, Hyperkalemia Condition: Stable Coding Level of Care Code ED [employer] Tender for Chg Fwd Documented by User: Angie Golden MD 06/28/22 20:35 HPI - General Adult General: Chief complaint: General Medical Stated complaint: NOT EATING/ NOT DRINKING/ DEPRESSED Time Seen by Provider: 06/28/22 17:20 PFSH ED PFSH: Medical History Bladder cancer Closed pelvic fracture COVID-19 Glaucoma Hypertension Lumbar stenosis with neurogenic claudication Type 2 diabetes mellitus Unspecified fracture of sacrum, initial encounter for closed fracture Surgical History History of bladder surgery Due to bladder cancer, tumors removed. 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 Status post lumbar spinal fusion Family History Father CAD (coronary artery disease) age 83 Diabetes Hypertension Mother Rheumatoid arthritis Other Hyperlipidemia Denies family history of Clotting disorder Dementia Psychiatric illness Chronic kidney disease (CKD) Suicide Anesthesia complication Bleeding disorder Lung disease Cancer Stroke Social History Smoking and tobacco status: former smoker (smoked x 23 years) Alcohol intake: never Course Vital Signs: Vital signs: Vital Signs Temperature 97.8 F 06/28/22 17:38 Pulse Rate 97 06/28/22 19:46 Respiratory Rate 16 06/28/22 19:46 Blood Pressure 99/58 06/28/22 19:46 Pulse Oximetry 95 06/28/22 19:46 Oxygen Delivery Me thod 06/28/22 19:46 MDM - General Adult Medical Decision Making Care signed out to Dr. Golden at change of shift. See final notes for diagnosis and disposition. Patient presents with generalized weakness he is quite dehydrated he has been depressed since his has not been eating or drinking he does have acute kidney injury with hyperkalemia along with acute cystitis his blood pressure here has been stable he is improved with IV fluids we will give him antibiotics I spoke to the hospitalist will admit at this time. Lab Data 06/28/22 17:34 06/28/22 17:34 Radiology Impressions Chest X-Ray 06/28/22 18:26 IMPRESSION: Stable appearance of the chest with prior exam, without acute cardiopulmonary abnormality. Abdomen/Pelvis CT 06/28/22 18:38 IMPRESSION: 1. Suggestion of mild adrenal hyperplasia. 2. Small nonobstructing renal calculus lower pole left kidney. 3. Mild colonic diverticulosis, particularly sigmoid colon, without CT findings of diverticulitis. 4. 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 Abnormal appearance of the urinary bladder in this patient with previous bladder carcinoma, with thickened wall with calcification. 6. Postsurgical hardware L4 through S2 related to prior fusion and stabilization regarding bony changes as noted above. 7. Small umbilical hernia of fat and mild inguinal hernias of fat without bowel content. Laboratory Results WBC 24.2 10^3/uL (4.0-10.0) H 06/28/22 17:34 RBC 4.91 10^6/uL (4.1-5.3) 06/28/22 17:34 Hgb 14.5 g/dL (11.7-16.6) 06/28/22 17:34 Hct 44.3 % (42.0-52.0) 06/28/22 17:34 MCV 90.2 fl (80-94) 06/28/22 17:34 MCH 29.5 pg (28.0-34.0) 06/28/22 17:34 MCHC 32.7 g/dL (30.0-36.0) 06/28/22 17:34 RDW 15.1 % (12.1-15.1) 06/28/22 17:34 Plt Count 142 10^3/cmm (130-400) 06/28/22 17:34 MPV 12.1 fL (7.4-10.4) H 06/28/22 17:34 Neut % (Auto) 87.2 % 06/28/22 17:34 Lymph % (Auto) 5.1 % 06/28/22 17:34 Lawrence % (Auto) 5.0 % 06/28/22 17:34 Eos % (Auto) 0.0 % 06/28/22 17:34 Baso % (Auto) 0.7 % 06/28/22 17:34 Neut # (Auto) 21.10 10^3/uL (1.8-7.7) H 06/28/22 17:34 Lymph # (Auto) 1.2 10^3/uL (0.8-4.8) 06/28/22 17:34 Lawrence # (Auto) 1.2 10^3/uL (0.2-0.9) H 06/28/22 17:34 Eos # (Auto) 0.0 10^3/uL (0.0-0.8) 06/28/22 17:34 Baso # (Auto) 0.2 10^3/uL (0.0-0.1) H 06/28/22 17:34 Nucleated RBC % (auto) 0 % 06/28/22 17:34 Nucleated RBCs # 0.0 /100WBC 06/28/22 17:34 Sodium 126 mmol/L (136-145) L 06/28/22 17:34 Potassium 5.9 mmol/L (3.5-5.1) H 06/28/22 17:34 Chloride 90 mmol/L (98-107) L 06/28/22 17:34 Carbon Dioxide 21 mmol/L (22-29) L 06/28/22 17:34 Anion Gap 20.9 (5-19) H 06/28/22 17:34 BUN 91 mg/dL (8-23) H* D 06/28/22 17:34 Creatinine 2.6 mg/dL (0.7-1.2) H 06/28/22 17:34 GFR Calculation Not Reportable 06/28/22 17:34 Glucose 272 mg/dL (65-115) H 06/28/22 17:34 POC Glucose 144 mg/dL (70-110) H 06/28/22 20:10 Calculated Osmolality 300 mOsm/kg (285-295) H 06/28/22 17:34 Calcium 8.1 mg/dL (8.5-10.5) L 06/28/22 17:34 Magnesium 2.4 mg/dL (1.7-2.3) H 06/28/22 17:34 Total Bilirubin 1.7 mg/dL (0.15-1.2) H 06/28/22 17:34 AST 158 U/L (0-40) H 06/28/22 17:34 ALT 128 U/L (0-41) H 06/28/22 17:34 Alkaline Phosphatase 226 U/L (40-130) H 06/28/22 17:34 Total Protein 6.3 g/dL (6.6-8.7) L 06/28/22 17:34 Albumin 2.3 g/dL (3.5-5.2) L 06/28/22 17:34 Globulin 4.0 g/dL (1.3-4.6) 06/28/22 17:34 Lipase 31 U/L (13-60) 06/28/22 17:34 Urine Color Other (Yellow) 06/28/22 18:29 Urine Appearance Cloudy (CLEAR) A 06/28/22 18:29 Urine pH 5 (5-7) 06/28/22 18:29 Ur Specific [place] 1.020 (1.005-1.030) 06/28/22 18:29 Urine Protein 3+ (Negative) H 06/28/22 18:29 Urine Glucose (UA) Norm (Normal) 06/28/22 18:29 Urine Ketones 1+ (Negative) H 06/28/22 18:29 Urine Blood 3+ (Negative) H 06/28/22 18:29 Urine Nitrate Negative (Negative) 06/28/22 18:29 Urine Bilirubin Neg (Negative) 06/28/22 18:29 Urine Urobilinogen Neg mg/dL (Negative) 06/28/22 18:29 Ur Leukocyte Esterase 2+ (Negative) H 06/28/22 18:29 Urine RBC 80-100 /hpf (0-2) H 06/28/22 18:29 Urine WBC Too numerous to cnt /hpf (0-5) H 06/28/22 18:29 Ur Squamous Epith Cells None /hpf (0-5) 06/28/22 18:29 Amorphous Sediment Not Reportable 06/28/22 18:29 Urine Bacteria 4+ /hpf (NONE) H 06/28/22 18:29 Critical Care Time Critical Care Time: Critical Care Time: Yes Total Critical Care Time: 40 Attestation: The high probability of a clinically significant, sudden or life threatening deterioration of the patient's gu system(s) required my full and direct attention, intervention and personal management. The critical care time is as shown. This time is in addition to time spent performing any reported procedures but includes the following: [x] Data and vital sign review and interpretation [x] Patient assessment, examination and intervention [x] Documentation [x] Medication orders and management Discharge Plan Discharge Patient Disposition: Admitted As Inpatient Clinical Impression: Acute cystitis, MONICA (acute kidney injury), Acute dehydration, Hyperkalemia Condition: Stable Coding Level of Care Code ED [employer] [employer] Tender for Eber Meneses
[2022-06-28 17:38] VITALS: BP 102/59; PULSE 111; RESP 16; TEMP 36.6; O2SAT 93
[2022-06-28] MEDS: insulin regular-human 100 units/1 mL 10 UNIT IVP (17:47)
[2022-06-28] MEDS: sodium chloride 0.9% 1,000 ML 999 ML IV (17:48)
[2022-06-28 17:51] LABS: Basophils # 0.2 10^3/uL (0.0-0.1); Basophils % 0.7 %; Hematocrit 44.3 % (42.0-52.0); Hemoglobin 14.5 g/dL (11.7-16.6); Lymphocytes # 1.2 10^3/uL (0.8-4.8); Lymphocytes % 5.1 %; Mean Corpuscular HGB Conc 32.7 g/dL (30.0-36.0); Mean Corpuscular Hemoglobin 29.5 pg (28.0-34.0); Mean Corpuscular Volume 90.2 fl (80-94); Mean Platelet Volume 12.1 fL (7.4-10.4); Monocytes # 1.2 10^3/uL (0.2-0.9); Neutrophils % 87.2 %; Nucleated Red Blood Cells % 0 %; Platelet Count 142 10^3/cmm (130-400); Red Blood Count 4.91 10^6/uL (4.1-5.3); Red Cell Distribution Width 15.1 % (12.1-15.1); White Blood Count 24.2 10^3/uL (4.0-10.0)
[2022-06-28 18:08] LABS: Alanine Aminotransferase 128 U/L (0-41); Albumin Level 2.3 g/dL (3.5-5.2); Alkaline Phosphatase 226 U/L (40-130); Anion Gap 20.9 (5-19); Aspartate Amino Transferase 158 U/L (0-40); Calcium 8.1 mg/dL (8.5-10.5); Carbon Dioxide 21 mmol/L (22-29); Chloride 90 mmol/L (98-107); Glucose 272 mg/dL (65-115); Lipase 31 U/L (13-60); Magnesium 2.4 mg/dL (1.7-2.3); Osmolality Calculated 300 mOsm/kg (285-295); Potassium 5.9 mmol/L (3.5-5.1); Sodium 126 mmol/L (136-145); Total Bilirubin 1.7 mg/dL (0.15-1.2); Total Protein 6.3 g/dL (6.6-8.7)
[2022-06-28 18:13] VITALS: BP 110/61; PULSE 104; O2SAT 92
--- NOTE | 2022-06-28 18:26 | XRR_ITS ---
PROCEDURE INFORMATION: Exam: XR Chest Exam date and time: 06/28/2022 6:32 PM Age: 82 years old Clinical indication: Other: Not eating, drinking, depressed; Prior surgery; Surgery date: 6+ months; Additional info: Cp TECHNIQUE: Imaging protocol: Radiologic exam of the chest. Views: 1 view. COMPARISON: CR (CHEST, ) 05/15/2022 8:28 PM FINDINGS: Tubes, catheters and devices: Central venous access catheter or port on the right, appearing in good position and unchanged from prior exam. Lungs: No focal infiltrate or consolidation. Minimal basilar scarring. Pleural spaces: Unremarkable. No pleural effusion. No pneumothorax. Heart/Mediastinum: Unremarkable. No cardiomegaly. Vasculature: Mild arteriosclerosis of the thoracic aorta. Bones/joints: Mild spondylotic change thoracic spine. XR/XR chest 1V portable [id number] IMPRESSION: Stable appearance of the chest with prior exam, without acute cardiopulmonary abnormality.
[2022-06-28 18:30] LABS: Blood Urea Nitrogen 91 mg/dL (8-23)
--- NOTE | 2022-06-28 18:38 | CTR_ITS ---
PROCEDURE INFORMATION: Exam: CT Abdomen And Pelvis Without Contrast Exam date and time: 06/28/2022 6:54 PM Age: 82 years old Clinical indication: Abdominal pain; Acute; Prior surgery; Surgery date: 6+ months; Surgery type: Back h/o bladder CA; Additional info: Abd pain TECHNIQUE: Imaging protocol: Computed tomography of the abdomen and pelvis without contrast. Radiation optimization: All CT scans at this facility use at least one of these dose optimization techniques: automated exposure control; mA and/or kV adjustment per patient size (includes targeted exams where dose is matched to clinical indication); or iterative reconstruction. REPORTING DATA: Count of CT and Cardiac NM exams in prior 12 months: This patient has received 8 known CTs and 0 known cardiac nuclear medicine studies in the 12 months prior to the current study. COMPARISON: CT pelvis wo/w con [id number] 04/19/2022 8:50 AM RADIATION DOSE METRICS: Total DLP (mGy-cm): 413.63 FINDINGS: Lungs: No infiltrate or effusion is seen within the lung bases. Liver: Normal. No mass. Gallbladder and bile ducts: Normal. No calcified stones. No ductal dilation. Pancreas: Normal. No ductal dilation. Spleen: Normal. No splenomegaly. Adrenal glands: Suggestion of mild adrenal hyperplasia, left greater than right. Kidneys and ureters: Small nonobstructing renal calculus lower pole left kidney. Kidneys are otherwise unremarkable. Mild perinephric stranding, likely age related. Stomach and bowel: Mild colonic diverticulosis, particularly sigmoid colon, without CT findings of diverticulitis. No bowel obstruction. Appendix: The appendix is not definitely seen, without secondary signs of appendicitis. Intraperitoneal space: Unremarkable. No free air. No significant fluid collection. Vasculature: Diffuse atherosclerotic vascular disease is seen, with focal mild aneurysmal dilatation of the distal abdominal aorta 3.3 cm. Lymph nodes: Unremarkable. No enlarged lymph nodes. Urinary bladder: Abnormal appearance of the urinary bladder with thickened wall with wall calcification in this patient with previous bladder carcinoma. Reproductive: Prostate calcifications are seen, as well. Bones/joints: Postsurgical hardware of posterior fusion noted L4 through S2. Degenerative change with degenerative disc disease noted L1-2 and L2-3 as well as lower thoracic spine. 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 There has been stabilization of the sacroiliac region of the upper pelvis with prior reported sacral fractures with 04/19/2022 exam. Soft tissues: Small umbilical hernia fat and mild inguinal hernias of fat. No bowel content. CT/CT abdomen pelvis wo con [id number] IMPRESSION: 1. Suggestion of mild adrenal hyperplasia. 2. Small nonobstructing renal calculus lower pole left kidney. 3. Mild colonic diverticulosis, particularly sigmoid colon, without CT findings of diverticulitis. 4. 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 Abnormal appearance of the urinary bladder in this patient with previous bladder carcinoma, with thickened wall with calcification. 6. Postsurgical hardware L4 through S2 related to prior fusion and stabilization regarding bony changes as noted above. 7. Small umbilical hernia of fat and mild inguinal hernias of fat without bowel content.
[2022-06-28 19:46] VITALS: BP 99/58; PULSE 97; RESP 16; O2SAT 95
[2022-06-28 20:05] LABS: Add Urine Microscopic? YES; Bilirubin Urine Neg (Negative); Blood Urine 3+ (Negative); Glucose Urine UA Norm (Normal); Ketones Urine 1+ (Negative); Leukocyte Esterase Urine 2+ (Negative); Nitrate Urine Negative (Negative); Protein Urine 3+ (Negative); Urine Appearance Cloudy (CLEAR); Urobilinogen Urine Neg (Negative); pH Urine 5 (5-7)
[2022-06-28 20:08] LABS: Add Urine Culture? Yes; Bacteria Urine 4+ /hpf; RBC Urine 80-100 /hpf (0-2); Urine Color Other (Yellow); WBC Urine TOO NUMEROUS TO CNT /hpf (0-5)
[2022-06-28 20:14] LABS: Glucose Point of Care 144 mg/dL (70-110)
--- NOTE | 2022-06-28 21:44 | P.HP_ITS ---
Providers/Chief Complaint Admitting Physician: Meet Chavez Primary Care Provider: Jadiel Wheat Chief Complaint: NOT EATING/ NOT DRINKING/ DEPRESSED History of Present Illness 82-year-old gentleman with history of bladder cancer and radiation, HTN, DM 2, recent back surgery in April, reportedly has been having depression since then, recently very depressed after losing his . Lives by himself, his daughter checks up on him, he has not been getting out from his recliner. Has not been eating, no appetite at all. Came into ER for evaluation. In ER noted with leukocytosis, hyponatremia 126, hyperkalemia 5.9, metabolic acidosis, anion gap 22.9, bicarb 21, BUN 91, creatinine 2.6, prior creatinine 0.8 on 06/16 this year. Glucose 272. Magnesium 2.4. T. bili 1.7, AST 158, ALT 128, alk phos 226. Albumin 2.3. Urine WBC too numerous to count. 80-100 RBC. 4+ bacteria. 1+ ketones. 3+ protein. He is having some left lower quadrant abdominal discomfort. CT abdomen pelvis with suggestion of mild adrenal hyperplasia. Small nonobstructing renal calculus lower pole left kidney. Mild colonic diverticulosis without diverticulitis. 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 Abnormal appearance of urinary bladder with previous bladder carcinoma, with thickened wall with calcification. Postsurgical hardware L4-S2 related to prior fusion and stabilization regarding bony changes. Small umbilical hernia of fat and mild inguinal hernia of fat without bowel content. He confirms that he has been quite depressed recently. He feels it has been a big problem for him affecting his functioning. He has thought about ending his life. When questioned about any plans or methods, states that he would use a knife on himself. He states that he would not tell anybody if he were to do it. His daughter when asked also states that he has been forgetful, although no formal history of dementia, she states her mother had reported him becoming more forgetful before her passing. As he is lethargic, at least some of the history had to be obtained from his daughter. Review of Systems Const: Reports: change in appetite, fatigue and other (Very weak) ENMT: Denies: throat pain Card: Denies: chest pain, edema, pre-syncope or dyspnea on exertion Resp: Denies: dyspnea, productive cough, change in phlegm color or hemoptysis GI: Reports: abdominal pain (LLQ); Denies: nausea, vomiting, diarrhea, constipation, hematochezia or melena : Denies: flank pain, difficulty urinating, urinary frequency or hematuria Musc: Denies: back pain, joint swelling or joint redness Skin/Breast: Denies: rash or new lesions Neuro: Denies: headache(s) Psych: Reports: depression and suicidal ideation Medications/Allergies Home Medications Medication Instructions Recorded Confirmed Last Taken Type dorzolamide 2 % eye drops 1 drp ophthalmic (eye) BID 12/16/21 06/22/22 05/15/22 History gabapentin 300 mg capsule 300 mg PO BID 12/16/21 06/22/22 05/15/22 History glipizide 2.5 mg tablet, extended 2.5 mg PO QAM 12/16/21 06/22/22 05/15/22 History release 24 hr latanoprost 0.005 % eye drops 1 drp ophthalmic (eye) BEDTIME 12/16/21 06/22/22 05/14/22 History lovastatin 40 mg tablet 40 mg PO QPM 12/16/21 06/22/22 05/14/22 History fluticasone propionate 50 2 spray intranasal DAILY PRN 04/18/22 06/22/22 Unknown History mcg/actuation nasal Allergy Symptoms spray,suspension ondansetron HCl 8 mg tablet 8 mg PO Q8H PRN Nausea And Vomiting 04/18/22 06/22/22 Unknown History timolol maleate 0.5 % eye drops 1 drp ophthalmic (eye) BID 04/18/22 06/22/22 05/15/22 History Intraoperative Neuromonitoring #1 ea 04/20/22 06/22/22 Unknown Rx acetaminophen 325 mg tablet 325 mg PO Q6H PRN Pain 05/16/22 06/22/22 Unknown History bisacodyl 10 mg rectal suppository 10 mg HI DAILY PRN Constipation 05/16/22 06/22/22 Unknown History (Dulcolax (bisacodyl)) sodium chloride 1,000 mg soluble 1,000 mg PO BID #30 tabs 05/18/22 06/22/22 Unknown Rx tablet tramadol 50 mg tablet 50 mg PO Q8H PRN pain #14 tabs 05/18/22 06/22/22 Unknown Rx levothyroxine 100 mcg capsule 100 mcg PO DAILY #30 caps 06/01/22 06/22/22 Unknown Rx meclizine 25 mg tablet 25 mg PO QID 06/01/22 06/22/22 Unknown History pantoprazole 40 mg tablet,delayed 40 mg PO DAILY 06/01/22 06/22/22 Unknown History release sitagliptin phosphate 100 mg 100 mg PO DAILY 06/01/22 06/22/22 Unknown History tablet (Januvia) Allergies Allergy/AdvReac Type Severity Reaction Status Date / Time amoxicillin Allergy ALGY-Rash Verified 06/22/22 10:53 benzonatate Allergy ALGY-Rash Verified 06/22/22 10:53 Beta-Blockers Allergy ALGY-Wheezi Verified 06/22/22 10:53 (Beta-Adrenergic Bloc ng brimonidine Allergy ALGY-Swell Verified 06/22/22 10:53 Lip/Tongue/Throat guaifenesin Allergy ADR-Itching Verified 06/22/22 10:53 nitrofurantoin Allergy ALGY-Rash Verified 06/22/22 10:53 sulfamethoxazole Allergy ALGY-Rash Verified 06/22/22 10:53 [From Sulfamethoxazole-Trimethoprim] trimethoprim Allergy ALGY-Rash Verified 06/22/22 10:53 [From Sulfamethoxazole-Trimethoprim] PFSH Acute PFSH: Medical History (Updated 06/28/22 @ 22:20 by Meet Chavez MD) Bladder cancer Closed pelvic fracture COVID-19 Glaucoma Hypertension Lumbar stenosis with neurogenic claudication Type 2 diabetes mellitus Unspecified fracture of sacrum, initial encounter for closed fracture Surgical History History of bladder surgery Due to bladder cancer, tumors removed. 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 Status post lumbar spinal fusion Family History Father CAD (coronary artery disease) age 83 Diabetes Hypertension Mother Rheumatoid arthritis Other Hyperlipidemia Denies family history of Clotting disorder Dementia Psychiatric illness Chronic kidney disease (CKD) Suicide Anesthesia complication Bleeding disorder Lung disease Cancer Stroke Social History Smoking and tobacco status: former smoker (smoked x 23 years) Alcohol intake: never Household members: none Marital status: / Vitals/I&O/Wt Last Vital Signs Temp 97.8 F 06/28/22 17:38 Pulse 97 06/28/22 19:46 Resp 16 06/28/22 19:46 BP 99/58 06/28/22 19:46 Pulse Ox 95 06/28/22 19:46 O2 Del Method 06/28/22 19:46 06/28/22 06/28/22 06/28/22 06:59 14:59 22:59 Intake Total 1000 / 1000 Balance 1000 / 1000 Weight last 48 hrs Weight 58.967 kg Physical Exam Narrative: Accompanied by his daughter. Const: COMMON NORMALS: alert GENERAL APPEARANCE: frail appearing ORIENTATION/CONSCIOUSNESS: Yes lethargic (Answers questions once awoken.) OTHER: Very weak HENMT: COMMON NORMALS: oropharynx normal Neck/C-Spine: COMMON NORMALS: no JVD Resp: COMMON NORMALS: normal respiratory effort and clear to auscultation bilaterally AUSCULTATION: clear to auscultation bilaterally Cardio: COMMON NORMALS: no JVD, regular rhythm, S1 normal heart sound present, S2 normal heart sound present and No murmurs present (Cardio) RHYTHM: regular rhythm HEART SOUNDS: S1 normal heart sound present and S2 normal heart sound present GI: COMMON NORMALS: Normal to inspection, nondistended, normoactive bowel sounds present and Soft to palpation PALPATION: Yes Soft to palpation and Yes Tenderness to palpation present (GI) Details: LLQ Extremity: COMMON NORMALS: no joint enlargement GENERAL: Yes edema (2+ BL) Neuro: COMMON NORMALS: patient oriented x3 and moves all extremities S ENSORIUM/ORIENTATION: Yes alert Skin: COMMON NORMALS: no rashes or lesions noted GENERAL SKIN EXAM: no rash es or lesions noted Urinary Catheter Management: Vincent: Cath Placed During This Visit: yes Urinary Catheter Date of Insertion: 06/28/22 Urinary Catheter Time of Insertion: 19:44 Data 06/28/22 17:34 06/28/22 17:34 A&P Assessment and plan (1) UTI (urinary tract infection): Prior cultures reviewed, noted negative. He is empirically started ceftriaxone, will continue for now given UA findings, also leukocytosis, follow-up urine culture. However, he is also had history of bladder cancer, radiation as well, and UA changes may be secondary to that. Some hematuria also may be secondary to his noncomplicated kidney stone. (2) Hyponatremia: Dehydrated. Suspected hypovolemic hyponatremia. Gentle fluid infusion. Domenica toring of BMPs for any rapid sodium changes. (3) Hyperkalemia: Received in rehydration. Follow-up BMPs. Low potassium diet. (4) Type 2 diabetes mellitus: Hyperglycemia, he has not been taking glipizide and Sitagliptin noted minimal consider this, keep wounds in urine. Possible starvation ketosis, however, will check serum ketones, will check VBG to assess for possible mild ketoacidosis. Low-dose Lantus. Sliding scale insulin. Rehydration as above. (5) Generalized weakness: Combination of dehydration, poor oral intake, severe depression, possible UTI. MONICA. Check TSH, check phos. Follow-up magnesium. PT, OT assessment. (6) MONICA (acute kidney injury): Suspected prerenal with poor oral intake. Receiving fluid challenge. No obstruction on CT. Follow-up renal function, urine output. Follow-up hypermagnesemia, hyperkalemia. (7) Acute dehydration: Gentle rehydration. Follow chemistries requested for electrolytes including hyponatremia. (8) Transaminitis: Suspect secondary to dehydration, rehydration as above. Follow-up chemistry r equested. If not improving, consider hepatitis panel. (9) Hyperbilirubinemia: Suspected secondary to cholestasis secondary to dehydration as above. Hold statin for now. Gentle rehydration. Follow-up chemistry requested. (10) Severe depression: Worsened since his 's passing. Daughter reports statements of depression from him since after back surgery. Severely depressed, not getting up from his recliner. Not eating or drinking. Extremely weak. Suicidal ideation. Would benefit from geriatric psychiatric assessment, but currently due to medical conditions not a candidate for this. Discussed with psychiatry, will see in consultation. Once medically improved, may be able to go for admission at geriatric psychiatric facility. (11) Suicidal ideation: With thoughts of ending his life, states that he would use a knife. States that he would not tell anybody about trying to do it. Currently he is too weak to try to attempt anything here. However, if his condition starts improving, consider one-to-one sitter. Psychiatry consultation as above. (12) Hypermagnesemia: Gentle IV hydration. Follow-up magnesium requested. 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 Plan Glaucoma HTN Lumbar stenosis history Hypothyroidism Requested medications to be confirmed. Please reconcile once available. Discussed with ER physician, reviewed ER documentation. Attestations Medical Necessity Statement*: Admission of over 2 midnights anticipated for remainder of UTI, MONICA, hyponatremia, hyperkalemia, dehydration, metabolic acidosis, severe depression with suicidal ideation. 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
[2022-06-28 21:48] VITALS: BP 124/66; PULSE 91; RESP 18; O2SAT 98
[2022-06-28 22:01] VITALS: BP 120/74; PULSE 90; RESP 16; TEMP 36.4; O2SAT 95
--- NOTE | 2022-06-28 22:01 | USCV_ITS ---
Darius Kowalski Age: 82 Gender: M : 1940 Exam Date: 06/28/2022 22:39 Ordering Phys: Meet Chavez MD Technologist: GURU Exam Location: [facility] [place] Indication: assess for DVT HISTORY: assess for DVT PROCEDURES: Venous duplex imaging was performed in bilateral lower extremities. The following venous structures were evaluated: common femoral vein, profunda vein, proximal portion of the greater saphenous vein, superficial femoral vein, and the popliteal vein. In addition, the posterior tibial veins were evaluated. Serial compression, augmentation maneuvers, and spectral Doppler flow evaluation were performed, which were normal. Bilaterally, the common femoral, superficial femoral, profunda femoral, popliteal, posterior tibial, and greater saphenous veins, and were identified and interrogated in the standard fashion. These veins were found to be easily compressible with spontaneous blood flow. No evidence of thrombus noted. CONCLUSIONS No evidence of right lower extremity DVT. No evidence of left lower extremity DVT. Aly Headley MD (Electronically Signed) Final Date: 29 June 2022 10:47 S
[2022-06-28 22:17] LABS: Blood Gas Allen Test Pos; Blood Gas Sample Type Venous; PCO2 VBG 39.9 mmHg (41-51); PO2 VBG 48.3 mmHg (25-40); Venous Blood Gas Hematocrit 43.9 % (42-52); pH VBG 7.39 (7.32-7.42)
[2022-06-28] MEDS: sodium chloride 0.9% 1,000 ML 100 ML IV (22:17)
[2022-06-28] MEDS: cefTRIAXone 1,000 MG in sodium chloride 0.9% (plus) 50 ML 100 MG IV (22:17)
[2022-06-28 22:29] LABS: Glucose Point of Care 150 mg/dL (70-110)
[2022-06-28] MEDS: heparin 5,000 unit/mL INJ 1 mL 5000 UNIT SUBCUT (22:33)
[2022-06-28 22:47] LABS: Anion Gap 16.5 (5-19); Calcium 8.1 mg/dL (8.5-10.5); Carbon Dioxide 24 mmol/L (22-29); Chloride 96 mmol/L (98-107); Glucose 152 mg/dL (65-115); Ketone (Acetest) Serum Negative (Negative); Osmolality Calculated 301 mOsm/kg (285-295); Potassium 5.5 mmol/L (3.5-5.1); Sodium 131 mmol/L (136-145)
[2022-06-28 22:50] LABS: Blood Urea Nitrogen 86 mg/dL (8-23)
[2022-06-28 23:11] VITALS: PULSE 93
[2022-06-29] VITALS (7 sets, daily range): BP systolic 113–131; BP diastolic 62–78; PULSE 85–98; RESP 14–18; TEMP 36.4–36.8; O2SAT 90–97
[2022-06-29 04:44] LABS: Basophils # 0.1 10^3/uL (0.0-0.1); Basophils % 0.6 %; Hematocrit 40.7 % (42.0-52.0); Hemoglobin 13.4 g/dL (11.7-16.6); Lymphocytes # 1.2 10^3/uL (0.8-4.8); Lymphocytes % 6.1 %; Mean Corpuscular HGB Conc 32.9 g/dL (30.0-36.0); Mean Corpuscular Hemoglobin 30.2 pg (28.0-34.0); Mean Corpuscular Volume 91.7 fl (80-94); Mean Platelet Volume 12.1 fL (7.4-10.4); Monocytes # 1.1 10^3/uL (0.2-0.9); Monocytes % 5.3 %; Neutrophils # 17.28 10^3/uL (1.8-7.7); Neutrophils % 86.4 %; Nucleated Red Blood Cells % 0 %; Platelet Count 115 10^3/cmm (130-400); Red Blood Count 4.44 10^6/uL (4.1-5.3); Red Cell Distribution Width 14.9 % (12.1-15.1)
[2022-06-29 05:06] LABS: Anion Gap 15.7 (5-19); Blood Urea Nitrogen 78 mg/dL (8-23); Calcium 7.7 mg/dL (8.5-10.5); Carbon Dioxide 23 mmol/L (22-29); Chloride 101 mmol/L (98-107); Glucose 161 mg/dL (65-115); Magnesium 2.5 mg/dL (1.7-2.3); Osmolality Calculated 307 mOsm/kg (285-295); Phosphorus 4.2 mg/dL (2.5-4.5); Potassium 4.7 mmol/L (3.5-5.1); Sodium 135 mmol/L (136-145); Thyroid Stimulating Hormone 3.16 uIU/mL (0.27-4.20)
[2022-06-29 06:47] LABS: Glucose Point of Care 154 mg/dL (70-110)
[2022-06-29] MEDS: sodium chloride 0.9% 1,000 ML 100 ML IV ×2 (08:23→19:55)
--- NOTE | 2022-06-29 08:33 | PC.PHAR ---
medications verified with pt and pts daughter Mirella-pt and daughter st he no longer takes pantoprazole
--- NOTE | 2022-06-29 10:11 | PC.CHAP ---
Pastoral Care Encounter/Spiritual Assessment Type of Contact [] Declined profile trimmer visit [] Patient/Family/Request visit [] Outpatient visit [] Follow-up visit [] Physician referral [] Code/Alert [x] Routine visit [] Staff referral [] Actively dying [] Patient sleeping [] Family support [] [] Out of room [] Palliative care [] [x] Receiving care in room [] Pre-surgical visit [] Trauma [] Long length of stay [] ICU visit [] Other: Relational/Emotional Strength [x] Patient feels connected with others/family/visitors/staff [] Distress [] Loneliness/isolation [] Abandonment Spirituality of Patient [x] Person of Reny [] Attends Restorationism of their Reny [x] Believes in Prayer [] Reads Bible or Rastafarian materials [] There are Spiritual issues to be addressed Invoice Coder Interventions [x] Prayer [x] Active listening [x] Non-anxious presence [x] Spiritual/emotional support [] Crisis/trauma care [x] Spiritual counseling [] Bereavement support [] Provided bereavement packet [] Provided Bible/devotional materials [] Provided toy/stuffed animal, coloring book to patient or family member [] Provided Communion [] Anointing/[place] [] Salvation [x] Completed spiritual assessment [] Other: Impact on Illness or Injury [] Angry [] Fearful [] Anxious [] Often cries [] Exhaustion [] Unable to work [] Unable to attend latter day [] Unable to walk/stand [] Unable to read [] Unable to drive [] Unable to eat/drink [] Unable to sleep [] Unable to be with family [] Patient intubated [] Other: Summary senior not able to eat food negative response waiting doctors reportnot sure what needs to be done or when he can go home Time spent with patient 10 mins
[2022-06-29 11:03] LABS: Anion Gap 16.3 (5-19); Blood Urea Nitrogen 74 mg/dL (8-23); Calcium 7.5 mg/dL (8.5-10.5); Carbon Dioxide 23 mmol/L (22-29); Chloride 98 mmol/L (98-107); Glucose 265 mg/dL (65-115); Osmolality Calculated 305 mOsm/kg (285-295); Potassium 5.3 mmol/L (3.5-5.1); Sodium 132 mmol/L (136-145)
[2022-06-29] MEDS: heparin 5,000 unit/mL INJ 1 mL 5000 UNIT SUBCUT ×2 (11:53→21:18)
[2022-06-29 12:07] LABS: Procalcitonin 3.64 ng/mL (0-0.5); Vitamin B12 1559 pg/mL (232-1245)
[2022-06-29] MEDS: gabapentin 100 mg Capsule PO ×3 (12:07→19:59)
[2022-06-29] MEDS: citalopram 20 mg Tablet PO (12:07)
[2022-06-29 12:15] LABS: Folate Level 9.1 ng/mL (4.5-32.2)
[2022-06-29 12:20] LABS: Iron 27 ug/dL (59-158); Percent Saturation 18.8 % (20-50); Total Iron Binding Capacity 143 mcg/dl; Unsaturated Iron Binding 116 ug/dL (112-347)
--- NOTE | 2022-06-29 14:08 | W.PM.PSYCONS ---
Providers/Reason for Consult Consulting Physican/Specialty*: Isaías Mcdonald/Psychiatry Reason for Consult*: suicidal ideation Attending Physician: Abilio Hernandez MD Primary Care Provider: Jadiel Wheat Psych Consult HPI History of Present Illness Darius Kowalski is a 82 year old male with history of diabetes type 2 acute cystitis acute kidney injury along with a history of a malignant neoplasm of the bladder that has metastasized who presented with poor appetite and increased fatigue and weakness with elevated blood sugar. He is currently admitted to the medical surge unit and was seen for an evaluation after he had reported that he wished to . Patient had endorsed that his had suddenly from a heart attack in April while the patient was in the hospital receiving treatment for another problem. He had reported that this was traumatic and devastating to him. He states that he wishes to join his of 47 years. He states having no access to a gun and when asked of a plan he stated that he would not use anything although he had stated previously that he would use a knife on himself. He has reported being quite depressed over the past few months. He reports low energy anhedonia low motivation sleep continuity disruption depressed mood and feelings of hopelessness. He had reported that he has been unable to eat and states that he has lost a significant amount of weight recently with significant loss of appetite. The patient appears to be having worsening cognition over the past 1 month from his previous evaluation at the [facility] home. He had reported having significant problems with memory and concentration. He had reported not being able to remember dates and times. Despite this, he had been living independently and stating that his daughter who lived close by was coming to visit and help with cooking as much as she could although he was nonspecific about her frequency visits. Patient stated that he would be agreeable to staying with a family member. The patient had reported that he was basically doing the minimum amount in order to help sustain himself but continued to report that he wanted to . Past psychiatric history: None Medical history: See below Allergies: Amoxicillin benzonatate guaifenesin nitrofurantoin sulfamethoxazole Bactrim brimonidine Drug and alcohol history: None reported history: He reports that he is retired from the [employer] with an honorable discharge. He was unable to report where he had served. Legal history: None reported Social history: States that he was born in [facility] and raised by his biological parents. He states that he had graduated from high school and entered into the . He states that he had worked in a [employer] company for several years of his life and states that he had been mainly retired. He reported that he had been for 47 years and had 2 children a son who lives in [place] works in [employer] and a daughter who lives in [facility]. He reports having a good relation with his daughter. He had reported that his had passed in front of him in [place] while he was in the hospital. He denied any history of abuse growing up. He reported no history of learning disability. Meds Home Medications and Allergies Home Medications Medication Instructions Recorded Confirmed Last Taken Type dorzolamide 2 % eye drops 1 drp ophthalmic (eye) BID 12/16/21 06/29/22 05/15/22 History gabapentin 300 mg capsule 300 mg PO BID 12/16/21 06/29/22 05/15/22 History glipizide 2.5 mg tablet, extended 2.5 mg PO QAM 12/16/21 06/29/22 05/15/22 History release 24 hr latanoprost 0.005 % eye drops 1 drp ophthalmic (eye) BEDTIME 12/16/21 06/29/22 05/14/22 History lovastatin 40 mg tablet 40 mg PO QPM 12/16/21 06/29/22 05/14/22 History timolol maleate 0.5 % eye drops 1 drp ophthalmic (eye) BID 04/18/22 06/29/22 05/15/22 History Intraoperative Neuromonitoring #1 ea 04/20/22 06/29/22 Unknown Rx acetaminophen 325 mg tablet 325 mg PO Q6H PRN Pain 05/16/22 06/29/22 Unknown History sodium chloride 1,000 mg soluble 1,000 mg PO BID #30 tabs 05/18/22 06/29/22 Unknown Rx tablet tramadol 50 mg tablet 50 mg PO Q8H PRN pain #14 tabs 05/18/22 06/29/22 Unknown Rx levothyroxine 100 mcg capsule 100 mcg PO DAILY #30 caps 06/01/22 06/29/22 Unknown Rx meclizine 25 mg tablet 25 mg PO QID 06/01/22 06/29/22 Unknown History Allergies Allergy/AdvReac Type Severity Reaction Status Date / Time amoxicillin Allergy ALGY-Rash Verified 06/29/22 08:30 benzonatate Allergy ALGY-Rash Verified 06/29/22 08:30 Beta-Blockers Allergy ALGY-Wheezi Verified 06/29/22 08:30 (Beta-Adrenergic Bloc ng brimonidine Allergy ALGY-Swell Verified 06/29/22 08:30 Lip/Tongue/Throat guaifenesin Allergy ADR-Itching Verified 06/29/22 08:30 nitrofurantoin Allergy ALGY-Rash Verified 06/29/22 08:30 sulfamethoxazole Allergy ALGY-Rash Verified 06/29/22 08:30 [From Sulfamethoxazole-Trimethoprim] trimethoprim Allergy ALGY-Rash Verified 06/29/22 08:30 [From Sulfamethoxazole-Trimethoprim] Current Medications Current Medications Generic Name Dose Route Start Last Admin Trade Name Freq PRN Reason Stop Dose Admin Citalopram Hydrobromide 20 mg 06/29/22 11:30 06/29/22 12:07 Citalopram 20 Mg Tablet PO 20 mg DAILY SANDY Administration Gabapentin 100 mg 06/29/22 11:05 06/29/22 12:07 Gabapentin 100 Mg Capsule PO 100 mg TID SANDY Administration Heparin Sodium (Porcine) 5,000 unit 06/28/22 22:01 06/29/22 11:53 Heparin 5,000 Unit/Ml Inj 1 Ml SUBCUT 5,000 unit Q12H SANDY Administration Sodium Chloride 1,000 mls @ 100 mls/hr 06/28/22 21:45 06/29/22 08:23 Sodium Chloride 0.9% IV 100 mls/hr .Q10H SANDY Administration PFSH NPU PFSH: Medical History (Updated 06/29/22 @ 14:48 by Isaías Mcdonald MD) Bladder cancer Closed pelvic fracture COVID-19 Glaucoma Hypertension Lumbar stenosis with neurogenic claudication Type 2 diabetes mellitus Unspecified fracture of sacrum, initial encounter for closed fracture Surgical History History of bladder surgery Due to bladder cancer, tumors removed. 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 Status post lumbar spinal fusion Family History Father CAD (coronary artery disease) age 83 Diabetes Hypertension Mother Rheumatoid arthritis Other Hyperlipidemia Denies family history of Clotting disorder Dementia Psychiatric illness Chronic kidney disease (CKD) Suicide Anesthesia complication Bleeding disorder Lung disease Cancer Stroke Social History Smoking and tobacco status: former smoker (smoked x 23 years) Alcohol intake: never Household members: none Marital status: / Mental Status Exam MSE Comments: He was casually dressed white male who appeared initially a bit guarded and irritated and uncomfortable but appeared to warm later during the interview. He was cooperative on interview. His speech was normal in regards to rate rhythm and prosody. He did appear to have some word finding problems. He was alert and oriented to person. He knew that he was in the hospital. He had reported being in [facility]. He was not oriented to date month year or day of the week. His mood was described as depressed. His affect was restricted in range and mood-congruent. There was no clear evidence of delusional thinking. He did not appear to be responding to internal stimuli. There was considerable psychomotor retardation. His insight was fair. His judgment was poor. His impulse control appeared limited at this time. His attention span was impaired his ability to abstract appeared impaired when asked similarities and proverbs. Vitals/I&O/Wt Last Vital Signs Temp 97.6 F 06/29/22 12:00 Pulse 85 06/29/22 12:00 Resp 16 06/29/22 12:00 BP 113/67 06/29/22 12:00 Pulse Ox 97 06/29/22 12:00 O2 Del Method 06/29/22 04:00 06/28/22 06/29/22 06/29/22 22:59 06:59 14:59 Intake Total 1000 / 1000 50 / 1050 1360 / 1360 Output Total 850 / 850 Balance 1000 / 1000 -800 / 200 1360 / 1360 Weight last 48 hrs Weight 64.098 kg Weight 58.967 kg Physical Exam Urinary Catheter Management: Vincent: Cath Placed During This Visit: yes Reason for Continuing Indwelling Catheter: Other Urinary Catheter Date of Insertion: 06/28/22 Urinary Catheter Time of Insertion: 19:44 Data NPU 06/29/22 04:32 06/29/22 10:39 Micro: Microbiology 06/28/22 22:12 Blood Culture - Preliminary Blood Escherichia coli 06/28/22 22:03 Blood Culture - Preliminary Blood SPECIMEN COLLECTED Microbiology 06/28/22 22:12 Blood Blood Culture - Preliminary Escherichia coli 06/28/22 22:03 Blood Blood Culture - Preliminary SPECIMEN COLLECTED A&P Assessment and plan (1) Major depressive disorder: (2) Dementia: Plan Is an 82-year-old white male who appears depressed while suffering from likely dementia as well with worsening symptoms noted and reported over the past 2 months. It is appropriate to have the patient on an antibreast as well as a anti-Alzheimer's agent at this time. He would likely benefit from additional support hopefully he would be able to stay with a family member at this time. 1.Continue SSRI/anti-Alzheimer medication as well. 2. Support maximizing sunlight in environment. 3. Encourage having date and time present to patient directly accessible to patient to minimize confusion 4. Low dose antipsychotic may be helpful if agitated. 5. Will follow, may require geropsychiatry admission and if unable to reside with a family member, he may need to live in a [place] [facility] facility. I recommend an OT [facility] evaluation for independent living. Attestations NPU Medical Necessity Statement*: continued stay for managing medical issues. Coding Level of Care Code Acute Code for g Fwd Diagnoses Major depressive disorder F32.9 Dementia F03.90
--- NOTE | 2022-06-29 15:13 | P.PN_ITS ---
Subjective Subjective: Admitted overnight. Today morning seen with friends at bedside. Patient is awake and alert x3. Able to have complete conversation. Patient is respectful, seems depressed. Patient's caregiver at bedside along with patient states he has been getting worse since his recently. Patient states he is depressed but currently does not have any ideations to hurt or kill himself but he does want to be with his at the earliest and states he would want to live longer for his children and grandchildren. States very so his brother have a new grandchild. Patient is agreeable for treatment. States he has not been eating and drinking well at home. Was taking his medications still around 2 days ago. Has remained hemodynamically stable and afebrile. Vitals/I&O/Wt Last Vital Signs Temp 97.6 F 06/29/22 12:00 Pulse 85 06/29/22 12:00 Resp 16 06/29/22 12:00 BP 113/67 06/29/22 12:00 Pulse Ox 97 06/29/22 12:00 O2 Del Method 06/29/22 04:00 06/29/22 06/29/22 06/29/22 06:59 14:59 22:59 Intake Total 50 / 1050 1360 / 1360 Output Total 850 / 850 Balance -800 / 200 1360 / 1360 Weight last 48 hrs Weight 64.098 kg Weight 58.967 kg Physical Exam Narrative: General: No acute distress, AO x3, depressed, dehydrated HEENT: PERRLA, pupils bilaterally equal and reactive Chest:Bronchial breath sounds b/l ,decreased air entry, equal good air entry bilaterally, no more fine basal crackles CVS: S1-S2 regular, no murmurs, no tachycardia, no gallops, no rubs Abdomen: Soft, nontender, no organomegaly, bowel sounds present, morbidly obese Neuro: No focal deficits, no facial deformity, AO x3, power 5/5 in all limbs Psych: COMMON NORMALS: mental status grossly normal, Normal thought process present, cooperative, speech normal, denies hallucinations, denies homicidal ideation and denies suicidal ideation APPEARANCE: Yes disheveled ATTITUDE: Yes engaged, No uncooperative, No agitated, No aggressive and No hostile ACTIVITY/MOTOR BEHAVIOR: Yes Avoids eye contact (attititude/behavior) SPEECH: Yes normal speech, Yes soft and Yes delayed MOOD & AFFECT: Yes depressed mood, Yes sad and Yes tearful THOUGHT PROCESS: Normal thought process present and Circumstantial thought process present Urinary Catheter Management: Vincent: Cath Placed During This Visit: yes Reason for Continuing Indwelling Catheter: Other Urinary Catheter Date of Insertion: 06/28/22 Urinary Catheter Time of Insertion: 19:44 Sepsis: Is patient septic: Yes Focused sepsis exam performed: Yes Date exam was performed: 06/29/22 Time exam was performed: 15:44 Data 06/29/22 04:32 06/29/22 10:39 Micro: Microbiology 06/28/22 22:12 Blood Culture - Preliminary Blood Escherichia coli 06/28/22 22:03 Blood Culture - Preliminary Blood SPECIMEN COLLECTED A&P Assessment and plan (1) Sepsis: Present on admission. Ruled in by tachycardia, leukocytosis, elevated lactate, endorgan damage with MONICA and encephalopathy. Bacteremia. Possible source of infection UTI Not given complete sepsis bolus given improving hemodynamics and possible histor y of CHF Qualifiers: Sepsis type: Escherichia coli Sepsis acute organ dysfunction status: with acute organ dysfunction Severe sepsis acute organ dysfunction type: acute renal failure Severe sepsis shock status: without septic shock (2) E coli bacteremia: Most likely secondary to UTI. Awaiting sensitivities. Repeat blood cultures in a.m. For now continue with IV ceftriaxone. (3) UTI (urinary tract infection): CT abdomen pelvis appreciated. No obstructive nephropathy. Does have history of bladder cancer with changes related to the same in urinary bladder and nonobstructive renal calculi and left lower pole of kidney. Antibiotics as above. (4) MONICA (acute kidney injury): Along with most likely second to dehydration from poor oral intake along with sepsis. Monitor BMP every 12 hourly. Medical reconciliation done for nephrotoxic drugs. (5) Hyponatremia: Dehydrated. Suspected hypovolemic hyponatremia. Improving. Continue with normal saline at 100 cc/h. Monitor BMP every 12 hourly. (6) Hyperkalemia: Received in rehydration. D50 and 10 units of insulin. BMP every 12 hourly. (7) Type 2 diabetes mellitus: Noncompliant to glipizide and Sitagliptin at home. Continue with insulin sliding scale. Carb consistent renal nondialysis diet. (8) Generalized weakness: Most likely in setting of acute kidney injury, sepsis and dehydration. TSH within normal limits. Check A1c, folate and B12 levels, ammonia levels. PT evaluation. (9) Acute dehydration: Gentle rehydration. Follow chemistries requested for electrolytes including hyp onatremia. (10) Major depressive disorder: Getting worse since passing away of life. Start on Celexa 20 mg, donepezil 10 mg at night. Sitter at bedside. Appreciate psych recommendations. Given the acuteness of the illness patient would benefit from good social support as an outpatient to prevent from worsening. Will discuss further with patient's family members for close monitoring as an outpatient with follow-up at [facility] versus possible [facility] placement. (11) Transaminitis: Suspect secondary to dehydration, rehydration as above. Check hepatitis panel. CT abdomen pelvis negative for liver pathology. (12) Hyperbilirubinemia: Suspected secondary to cholestasis secondary to dehydration as above. Hold statin for now. Gentle rehydration. Follow-up chemistry requested. (13) Suicidal ideation: No active ideation as per patient today. Psych consult. Most likely in setting of severe depression. Sitter at bedside. (14) Hypermagnesemia: Gentle IV hydration. Follow-up magnesium requested. 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 (17) Dementia: (18) High anion gap metabolic acidosis: Secondary to starvation ketosis along with acute kidney injury. Treatment as above. Continue to monitor. Plan Glaucoma HTN Lumbar stenosis history Hypothyroidism Full code. Renal diabetic nondialysis diet. Heparin 5000 every 12 hourly for DVT prophylaxis Famotidine for PUD prophylaxis. Discharge planning: Given severe depression with possibility of worsening illness as an outpatient and poor social support since passing away of his recently will need to discuss further with patient's family regarding closer monitoring as an outpatient. Patient would benefit from going home with one of his caregivers with close follow-up at [facility] versus possible [facility] placement. Attestations Medical Necessity Statement*: Requires further hospitalization for management of severe depression leading to poor oral intake causing acute kidney injury, electrolyte abnormality along with sepsis and E. coli bacteremia in setting of UTI Diagnoses Sepsis A41.9 Sepsis type: Escherichia coli Sepsis acute organ dysfunction status: with acute organ dysfunction Severe sepsis acute organ dysfunction type: acute renal failure Severe sepsis shock status: without septic shock E coli bacteremia R78.81; B96.20 UTI (urinary tract infection) N39.0 MONICA (acute kidney injury) N17.9 Hyponatremia E87.1 Hyperkalemia E87.5 Type 2 diabetes mellitus E11.9 Generalized weakness R53.1 Acute dehydration E86.0 Major depressive disorder F32.9 Transaminitis R74.01 Hyperbilirubinemia E80.6 Suicidal ideation R45.851 Hypermagnesemia E83.41 Status post lumbar spinal fusion Z98.1 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
[2022-06-29] MEDS: insulin lispro 100 unit/1 mL SUBCUT ×3 (15:21→20:10)
[2022-06-29] MEDS: insulin regular-human 10 UNIT in SYRINGE 1 EACH IVP (16:50)
[2022-06-29 17:00] LABS: Glucose Point of Care 296 mg/dL (70-110)
[2022-06-29] MEDS: cyclobenzaprine 10 mg Tablet 5 MG PO (19:23)
[2022-06-29] MEDS: donepezil 5 MG Tablet 10 MG PO (19:59)
[2022-06-29 20:09] LABS: Glucose Point of Care 217 mg/dL (70-110)
[2022-06-29 21:01] LABS: Anion Gap 11.3 (5-19); Carbon Dioxide 23 mmol/L (22-29); Chloride 99 mmol/L (98-107); Osmolality Calculated 292 mOsm/kg (285-295); Potassium 4.3 mmol/L (3.5-5.1); Total Bilirubin 0.6 mg/dL (0.15-1.2)
[2022-06-29] MEDS: cefTRIAXone 1,000 MG in sodium chloride 0.9% (plus) 50 ML 100 MG IV (21:17)
[2022-06-29 21:31] LABS: Alanine Aminotransferase 71 U/L (0-41); Alkaline Phosphatase 175 U/L (40-130); Aspartate Amino Transferase 58 U/L (0-40); Blood Urea Nitrogen 64 mg/dL (8-23); Calcium 7.2 mg/dL (8.5-10.5); Glucose 202 mg/dL (65-115); Sodium 129 mmol/L (136-145); Total Protein 4.6 g/dL (6.6-8.7)
[2022-06-29 21:33] LABS: Albumin Level 1.6 g/dL (3.5-5.2)
[2022-06-30 02:34] LABS: Basophils # 0.1 10^3/uL (0.0-0.1); Basophils % 0.3 %; Hematocrit 38.3 % (42.0-52.0); Hemoglobin 12.3 g/dL (11.7-16.6); Lymphocytes # 0.8 10^3/uL (0.8-4.8); Lymphocytes % 4.6 %; Mean Corpuscular HGB Conc 32.1 g/dL (30.0-36.0); Mean Corpuscular Hemoglobin 29.4 pg (28.0-34.0); Mean Corpuscular Volume 91.4 fl (80-94); Mean Platelet Volume 12.5 fL (7.4-10.4); Monocytes # 0.6 10^3/uL (0.2-0.9); Monocytes % 3.1 %; Neutrophils # 15.82 10^3/uL (1.8-7.7); Neutrophils % 90.4 %; Nucleated Red Blood Cells % 0 %; Platelet Count 80 10^3/cmm (130-400); Red Blood Count 4.19 10^6/uL (4.1-5.3); Red Cell Distribution Width 15.3 % (12.1-15.1); White Blood Count 17.5 10^3/uL (4.0-10.0)
[2022-06-30 02:48] LABS: Estmated Average Glucose 151; Hemoglobin A1C 6.9 % (4.0-6.0)
[2022-06-30 02:50] LABS: Alanine Aminotransferase 73 U/L (0-41); Albumin Level 1.7 g/dL (3.5-5.2); Alkaline Phosphatase 202 U/L (40-130); Aspartate Amino Transferase 74 U/L (0-40); Blood Urea Nitrogen 64 mg/dL (8-23); Calcium 7.5 mg/dL (8.5-10.5); Carbon Dioxide 23 mmol/L (22-29); Chloride 100 mmol/L (98-107); Globulin 3.1 g/dL (1.3-4.6); Glucose 138 mg/dL (65-115); Osmolality Calculated 289 mOsm/kg (285-295); Sodium 129 mmol/L (136-145); Total Bilirubin 0.8 mg/dL (0.15-1.2); Total Protein 4.8 g/dL (6.6-8.7)
[2022-06-30 02:55] LABS: Ammonia 52 umol/L (16-60); Cholesterol 68 mg/dL (0-200); HDL Cholesterol 10 mg/dL (60-100); LDL Cholesterol Calculated 27 mg/dL (50-129); Triglycerides 155 mg/dL (0-150); VLDL Cholestrol Calculation 31 mg/dL (0-30)
[2022-06-30 02:58] LABS: Anion Gap 10.8 (5-19); Potassium 4.8 mmol/L (3.5-5.1)
[2022-06-30 04:00] VITALS: BP 109/61; PULSE 94; RESP 18; TEMP 36.8; O2SAT 90
[2022-06-30 06:21] LABS: Acinetobacter baumannii Not Detected (NOT DETECT); Bacteroides fragilis Not Detected (NOT DETECT); CTX-M Detected (NOT DETECT); Citrobacter Not Detected (NOT DETECT); Cronobacter sakazakii Not Detected (NOT DETECT); Enterobacter cloacae complex Not Detected (NOT DETECT); Enterobacter non cloacae Not Detected (NOT DETECT); Fusobacterium necrophorum Not Detected (NOT DETECT); Fusobacterium nucleatum Not Detected (NOT DETECT); Haemophilus influenzae Not Detected (NOT DETECT); IMP Resistance Gene Not Detected (NOT DETECT); KPC Resistance Gene Not Detected (NOT DETECT); Klebsiella pneumoniae group Not Detected (NOT DETECT); Morganella morganii Not Detected (NOT DETECT); NDM Resistance Gene Not Detected (NOT DETECT); Neisseria meningitidis Not Detected (NOT DETECT); OXA Resistance Gene Not Detected (NOT DETECT); Pan Candida Not Detected (NOT DETECT); Pan Gram-Positive Not Detected (NOT DETECT); Proteus mirabilis Not Detected (NOT DETECT); Pseudomonas aeruginosa Not Detected (NOT DETECT); Salmonella Not Detected (NOT DETECT); Serratia Not Detected (NOT DETECT); Serratia marcescens Not Detected (NOT DETECT); Stenotrophomonas maltophilia Not Detected (NOT DETECT); VIM Resistance Gene Not Detected (NOT DETECT)
[2022-06-30] MEDS: sodium chloride 0.9% 1,000 ML 100 ML IV ×2 (06:26→17:42)
[2022-06-30 06:33] LABS: Glucose Point of Care 133 mg/dL (70-110)
[2022-06-30 07:56] VITALS: BP 108/63; PULSE 96; RESP 18; TEMP 36.5; O2SAT 91
[2022-06-30] MEDS: gabapentin 100 mg Capsule PO ×3 (09:54→20:32)
[2022-06-30] MEDS: levothyroxine 100 mcg Tablet PO (09:54)
[2022-06-30] MEDS: citalopram 20 mg Tablet PO (09:54)
[2022-06-30] MEDS: heparin 5,000 unit/mL INJ 1 mL 5000 UNIT SUBCUT ×2 (09:58→21:54)
[2022-06-30 12:09] VITALS: BP 115/61; PULSE 84; RESP 18; TEMP 36.3; O2SAT 94
[2022-06-30 12:13] LABS: Glucose Point of Care 207 mg/dL (70-110)
[2022-06-30] MEDS: meropenem 1,000 MG in sodium chloride 0.9% (plus) 50 ML 100 MG IV (12:51)
[2022-06-30] MEDS: insulin lispro 100 unit/1 mL SUBCUT ×3 (13:24→22:37)
--- NOTE | 2022-06-30 13:38 | P.PN_ITS ---
Subjective Subjective: No acute events overnight. Patient has remained hemodynamically stable and afebrile. Seen with sitter at bedside. No episodes of agitation or confusion overnight. Patient has been compliant with medications. Patient sleeping on examination but wakes up to verbal stimulus. States he did eat some breakfast. Discussed about adding protein shakes and he seems excited about the same. Denies any nausea, vomiting, headache. Vitals/I&O/Wt Last Vital Signs Temp 97.3 F L 06/30/22 12:09 Pulse 84 06/30/22 12:09 Resp 18 06/30/22 12:09 BP 115/61 06/30/22 12:09 Pulse Ox 94 06/30/22 12:09 O2 Del Method 06/30/22 12:09 06/29/22 06/30/22 06/30/22 22:59 06:59 14:59 Intake Total 2160.1 / 3520.1 1060 / 4580.1 240 / 240 Output Total 1250 / 1250 575 / 1825 Balance 910.1 / 2270.1 485 / 2755.1 240 / 240 Weight last 48 hrs Weight 67.699 kg Weight 64.098 kg Weight 58.967 kg Physical Exam Narrative: General: No acute distress, AO x3, depressed, dehydrated HEENT: PERRLA, pupils bilaterally equal and reactive Chest:Bronchial breath sounds b/l ,decreased air entry, equal good air entry bilaterally, no more fine basal crackles CVS: S1-S2 regular, no murmurs, no tachycardia, no gallops, no rubs Abdomen: Soft, nontender, no organomegaly, bowel sounds present, morbidly obese Neuro: No focal deficits, no facial deformity, AO x3, power 5/5 in all limbs Psych: COMMON NORMALS: mental status grossly normal, Normal thought process present, cooperative, speech normal, denies hallucinations, denies homicidal ideation and denies suicidal ideation APPEARANCE: Yes disheveled ATTITUDE: Yes engaged, No uncooperative, No agitated, No aggressive and No hostile ACTIVITY/MOTOR BEHAVIOR: Yes Avoids eye contact (attititude/behavior) SPEECH: Yes normal speech, Yes soft and Yes delayed MOOD & AFFECT: Yes depressed mood, Yes sad and Yes tearful THOUGHT PROCESS: Normal thought process present and Circumstantial thought process present Urinary Catheter Management: Vincent: Cath Placed During This Visit: yes Reason for Continuing Indwelling Catheter: Acute Urinary Retention or Obstruction Urinary Catheter Date of Insertion: 06/28/22 Urinary Catheter Time of Insertion: 19:44 Data 06/30/22 02:18 06/30/22 02:18 Micro: Microbiology 06/29/22 18:48 MRSA Culture - Final Nose 06/28/22 22:12 Blood Culture - Preliminary Blood Escherichia coli 06/28/22 18:29 Urine Culture - Preliminary Urine,Clean Catch Gram Negative Rods 06/28/22 22:03 Blood Culture - Preliminary Blood 06/30/22 02:18 Blood Culture - Preliminary Blood SPECIMEN COLLECTED 06/30/22 02:20 Blood Culture - Preliminary Blood SPECIMEN COLLECTED A&P Assessment and plan (1) Sepsis: Present on admission. Ruled in by tachycardia, leukocytosis, elevated lactate, endorgan damage with MONICA and encephalopathy. ESBL bacteremia. Possible source of infection UTI Not given complete sepsis bolus given improving hemodynamics and possible history of CHF Qualifiers: Sepsis type: Escherichia coli Sepsis acute organ dysfunction status: with acute organ dysfunction Severe sepsis acute organ dysfunction type: acute renal failure Severe sepsis shock status: without septic shock (2) E coli bacteremia: Most likely secondary to UTI. ESBL in nature. Appreciate sensitivities. Repeat blood culture sent. Switch ceftriaxone to meropenem. Will de-escalate as per formal sensitivities. (3) UTI (urinary tract infection): CT abdomen pelvis appreciated. No obstructive nephropathy. Does have history of bladder cancer with changes related to the same in urinary bladder and nonobstructive renal calculi and left lower pole of kidney. Antibiotics as above. (4) MONICA (acute kidney injury): Along with most likely second to dehydration from poor oral intake along with sepsis. Creatinine trending down to 1.6. BUN trending down as well. Monitor BMP daily. Medical reconciliation done for nephrotoxic drugs. Check urine lites, urine creatinine. (5) Hyponatremia: Dehydrated. Suspected hypovolemic hyponatremia. Improving. Improving up to 129. Continue with normal saline at 100 cc/h. Monitor BMP every 12 hourly. (6) Hyperkalemia: Resolved. (7) Type 2 diabetes mellitus: HbA1c 6.9. Noncompliant to glipizide and Sitagliptin at home. Continue with insulin sliding scale. Carb consistent renal nondialysis diet. (8) Generalized weakness: Most likely in setting of acute kidney injury, sepsis and dehydration. TSH, vitamin B12 and folate within normal limits. PT evaluation. (9) Acute dehydration: Gentle rehydration. Follow chemistries requested for electrolytes including hyponatremia. (10) Major depressive disorder: Getting worse since passing away of life. Start on Celexa 20 mg, donepezil 10 mg at night. Sitter at bedside. Appreciate psych recommendations. Given the acuteness of the illness patient would benefit from good social support as an outpatient to prevent from worsening. Will discuss further with patient's family members for close monitoring as an outpatient with follow-up at [facility] versus possible [facility] placement. (11) Transaminitis: Suspect secondary to dehydration, rehydration as above. Check hepatitis panel. CT abdomen pelvis negative for liver pathology. (12) Hyperbilirubinemia: Suspected secondary to cholestasis secondary to dehydration as above. Hold statin for now. Gentle rehydration. Follow-up chemistry requested. (13) Suicidal ideation: No active ideation as per patient today. Psych consult. Most likely in setting of severe depression. Sitter at bedside. (14) Hypermagnesemia: Gentle IV hydration. Follow-up magnesium requested. 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 (17) Dementia: (18) High anion gap metabolic acidosis: Resolved. Secondary to starvation ketosis along with acute kidney injury. Continue to monitor. (19) ESBL (extended spectrum beta-lactamase) producing bacteria infection: Plan Glaucoma HTN Lumbar stenosis history Hypothyroidism Full code. Renal diabetic nondialysis diet. Heparin 5000 every 12 hourly for DVT prophylaxis Famotidine for PUD prophylaxis. PT evaluation. Discharge planning: Given severe depression with possibility of worsening illness as an outpatient and poor social support since passing away of his recently will need to discuss further with patient's family regarding closer monitoring as an outpatient. Patient would benefit from going home with one of his caregivers with close follow-up at [facility] versus possible [facility] placement. Care discussed in detail with patient's daughter over the phone. Attestations Medical Necessity Statement*: Patient requires further hospitalization for management of ESBL bacteremia in setting of complicated UTI, hyponatremia, acute kidney injury in a patient with severe depression while safe discharge planning is sought. Diagnoses Sepsis A41.9 Sepsis type: Escherichia coli Sepsis acute organ dysfunction status: with acute organ dysfunction Severe sepsis acute organ dysfunction type: acute renal failure Severe sepsis shock status: without septic shock E coli bacteremia R78.81; B96.20 UTI (urinary tract infection) N39.0 MONICA (acute kidney injury) N17.9 Hyponatremia E87.1 Hyperkalemia E87.5 Type 2 diabetes mellitus E11.9 Generalized weakness R53.1 Acute dehydration E86.0 Major depressive disorder F32.9 Transaminitis R74.01 Hyperbilirubinemia E80.6 Suicidal ideation R45.851 Hypermagnesemia E83.41 Status post lumbar spinal fusion Z98.1 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
[2022-06-30 14:00] VITALS: BP 119/69; PULSE 85; RESP 16; TEMP 36.8; O2SAT 93
[2022-06-30 14:50] LABS: Anion Gap 9.6 (5-19); Blood Urea Nitrogen 58 mg/dL (8-23); Calcium 7.3 mg/dL (8.5-10.5); Carbon Dioxide 23 mmol/L (22-29); Chloride 103 mmol/L (98-107); Glucose 247 mg/dL (65-115); Osmolality Calculated 296 mOsm/kg (285-295); Potassium 4.6 mmol/L (3.5-5.1); Sodium 131 mmol/L (136-145)
--- NOTE | 2022-06-30 15:03 | P.NPUPN_ITS ---
Mental Status Exam MSE Comments: This is a slender elderly white male in hospital gown with limited grooming but adequate eye contact. No abnormal movements. Cooperative with exam in no acute distress. His speech was normal in regards to rate rhythm and prosody. He did appear to have some word finding problems. Mood described as fine, affect congruent. Thought process was confused to some degree. He knew that he was in the hospital. He had reported being in [facility]. He was not oriented to date month year or day of the week. There was no clear evidence of delusional thinking. He did not appear to be responding to internal stimuli. His insight was fair. His judgment was poor. His impulse control appeared limited at this time. His attention span was impaired his ability to abstract appeared impaired when asked similarities and proverbs. Vitals/I&O/Wt Last Vital Signs Temp 97.3 F L 06/30/22 12:09 Pulse 84 06/30/22 12:09 Resp 18 06/30/22 12:09 BP 115/61 06/30/22 12:09 Pulse Ox 94 06/30/22 12:09 O2 Del Method 06/30/22 12:09 06/30/22 06/30/22 06/30/22 06:59 14:59 22:59 Intake Total 1060 / 4580.1 770 / 770 Output Total 575 / 1825 Balance 485 / 2755.1 770 / 770 Weight last 48 hrs Weight 67.699 kg Weight 64.098 kg Weight 58.967 kg Physical Exam Urinary Catheter Management: Vincent: Cath Placed During This Visit: yes Reason for Continuing Indwelling Catheter: Acute Urinary Retention or Obstruction Urinary Catheter Date of Insertion: 06/28/22 Urinary Catheter Time of Insertion: 19:44 Data NPU 06/30/22 02:18 06/30/22 14:04 Micro: Microbiology 06/29/22 18:48 MRSA Culture - Final Nose 06/28/22 22:12 Blood Culture - Preliminary Blood Escherichia coli 06/28/22 18:29 Urine Culture - Preliminary Urine,Clean Catch Gram Negative Rods 06/28/22 22:03 Blood Culture - Preliminary Blood 06/30/22 02:18 Blood Culture - Preliminary Blood SPECIMEN COLLECTED 06/30/22 02:20 Blood Culture - Preliminary Blood SPECIMEN COLLECTED Microbiology 06/29/22 18:48 Nose MRSA Culture - Final 06/28/22 22:12 Blood Blood Culture - Preliminary Escherichia coli 06/28/22 18:29 Urine,Clean Catch Urine Culture - Preliminary Gram Negative Rods 06/28/22 22:03 Blood Blood Culture - Preliminary 06/30/22 02:18 Blood Blood Culture - Preliminary SPECIMEN COLLECTED 06/30/22 02:20 Blood Blood Culture - Preliminary SPECIMEN COLLECTED A&P Assessment and plan (1) Major depressive disorder: (2) Dementia: Plan Is an 82-year-old white male who appears depressed while suffering from likely dementia as well with worsening symptoms noted and reported over the past 2 months. It is appropriate to have the patient on an antibreast as well as a anti-Alzheimer's agent at this time. He would likely benefit from additional support hopefully he would be able to stay with a family member at this time. 1.Continue SSRI/anti-Alzheimer medication as well. 2. Support maximizing sunlight in environment. 3. Encourage having date and time present to patient directly accessible to patient to minimize confusion 4. Low dose antipsychotic may be helpful if agitated. 5. Will follow, may require geropsychiatry admission and if unable to reside with a family member, he may need to live in a care home facility. I recommend an OT [facility] evaluation for independent living. Attestations NPU Medical Necessity Statement*: N/A. Please see primary team note for medical necessity. Coding Level of Care Code Acute Code for g Fwd Diagnoses Major depressive disorder F32.9 Dementia F03.90
[2022-06-30 15:12] LABS: Potassium, Radom Urine 19 mmol/L; Urine Creatinine 30 mg/dL (39-259); Urine Random Chloride 42 mmol/L; Urine Random Sodium 43 mmol/L
[2022-06-30 15:59] LABS: Eosinophil Urine No Eosinophils Seen
--- NOTE | 2022-06-30 17:28 | PC.NURSE ---
Patient 17:00 accucheck is 177
[2022-06-30] MEDS: donepezil 5 MG Tablet 10 MG PO (20:32)
[2022-06-30 21:20] VITALS: BP 142/66; PULSE 86; RESP 18; TEMP 36.8; O2SAT 93
[2022-06-30 22:33] LABS: Glucose Point of Care 252 mg/dL (70-110)
[2022-07-01] VITALS (7 sets, daily range): BP systolic 124–135; BP diastolic 69–75; PULSE 79–89; RESP 16–17; TEMP 36.3–36.8; O2SAT 93–94
[2022-07-01] MEDS: meropenem 1,000 MG in sodium chloride 0.9% (plus) 50 ML 100 MG IV ×3 (00:18→23:26)
[2022-07-01] MEDS: sodium chloride 0.9% 1,000 ML 100 ML IV ×3 (03:59→23:24)
[2022-07-01 05:02] LABS: Basophils % 0.3 %; Hematocrit 36.7 % (42.0-52.0); Hemoglobin 11.6 g/dL (11.7-16.6); Lymphocytes # 0.9 10^3/uL (0.8-4.8); Lymphocytes % 6.2 %; Mean Corpuscular HGB Conc 31.6 g/dL (30.0-36.0); Mean Corpuscular Hemoglobin 30.2 pg (28.0-34.0); Mean Corpuscular Volume 95.6 fl (80-94); Mean Platelet Volume 12.5 fL (7.4-10.4); Monocytes # 0.7 10^3/uL (0.2-0.9); Monocytes % 5.1 %; Neutrophils # 12.34 10^3/uL (1.8-7.7); Neutrophils % 86.5 %; Nucleated Red Blood Cells % 0 %; Platelet Count 58 10^3/cmm (130-400); Red Blood Count 3.84 10^6/uL (4.1-5.3); Red Cell Distribution Width 15.9 % (12.1-15.1); White Blood Count 14.3 10^3/uL (4.0-10.0)
[2022-07-01 05:20] LABS: Alanine Aminotransferase 64 U/L (0-41); Albumin Level 1.6 g/dL (3.5-5.2); Alkaline Phosphatase 224 U/L (40-130); Anion Gap 11.5 (5-19); Aspartate Amino Transferase 55 U/L (0-40); Blood Urea Nitrogen 58 mg/dL (8-23); Calcium 7.1 mg/dL (8.5-10.5); Carbon Dioxide 21 mmol/L (22-29); Chloride 104 mmol/L (98-107); Globulin 2.8 g/dL (1.3-4.6); Glucose 142 mg/dL (65-115); Osmolality Calculated 293 mOsm/kg (285-295); Potassium 4.5 mmol/L (3.5-5.1); Sodium 132 mmol/L (136-145); Total Bilirubin 0.6 mg/dL (0.15-1.2); Total Protein 4.4 g/dL (6.6-8.7)
[2022-07-01 06:08] LABS: Acinetobacter baumannii Not Detected (NOT DETECT); Bacteroides fragilis Not Detected (NOT DETECT); CTX-M Detected (NOT DETECT); Citrobacter Not Detected (NOT DETECT); Cronobacter sakazakii Not Detected (NOT DETECT); Enterobacter cloacae complex Not Detected (NOT DETECT); Enterobacter non cloacae Not Detected (NOT DETECT); Fusobacterium necrophorum Not Detected (NOT DETECT); Fusobacterium nucleatum Not Detected (NOT DETECT); Haemophilus influenzae Not Detected (NOT DETECT); IMP Resistance Gene Not Detected (NOT DETECT); KPC Resistance Gene Not Detected (NOT DETECT); Klebsiella pneumoniae group Not Detected (NOT DETECT); Morganella morganii Not Detected (NOT DETECT); NDM Resistance Gene Not Detected (NOT DETECT); Neisseria meningitidis Not Detected (NOT DETECT); OXA Resistance Gene Not Detected (NOT DETECT); Pan Candida Not Detected (NOT DETECT); Pan Gram-Positive Not Detected (NOT DETECT); Proteus mirabilis Not Detected (NOT DETECT); Pseudomonas aeruginosa Not Detected (NOT DETECT); Salmonella Not Detected (NOT DETECT); Serratia Not Detected (NOT DETECT); Serratia marcescens Not Detected (NOT DETECT); Stenotrophomonas maltophilia Not Detected (NOT DETECT); VIM Resistance Gene Not Detected (NOT DETECT)
[2022-07-01 07:10] LABS: Glucose Point of Care 133 mg/dL (70-110)
[2022-07-01] MEDS: heparin 5,000 unit/mL INJ 1 mL 5000 UNIT SUBCUT (09:11)
[2022-07-01] MEDS: citalopram 20 mg Tablet PO (09:11)
[2022-07-01] MEDS: gabapentin 100 mg Capsule PO ×3 (09:11→20:55)
[2022-07-01] MEDS: levothyroxine 100 mcg Tablet PO (09:11)
--- NOTE | 2022-07-01 09:46 | PC.SOCIAL ---
IMM update IMM updated with patient and daughter. Verbalized an understanding. Copy PG 2 provided. Initialled, dated, timed, and placed in chart.
[2022-07-01 11:53] LABS: Glucose Point of Care 198 mg/dL (70-110)
--- NOTE | 2022-07-01 11:57 | XRR_ITS ---
PROCEDURE INFORMATION: Exam: XR Abdomen Exam date and time: 07/01/2022 11:22 AM Age: 82 years old Clinical indication: Abdominal pain TECHNIQUE: Imaging protocol: Radiologic exam of the abdomen. Views: Frontal supine view of the abdomen. 1 View. COMPARISON: CT abdomen pelvis wo con [id number] 06/28/2022 6:54 PM FINDINGS: Gastrointestinal tract: Normal. No bowel dilation. Bones/joints: Posterior spinal fusion hardware noted within the lower lumbar spine and extending through the sacroiliac joints into the iliac crests. No acute findings. XR/XR abdomen 1V* [id number] IMPRESSION: No acute findings.
[2022-07-01] MEDS: insulin lispro 100 unit/1 mL SUBCUT ×2 (12:20→20:55)
[2022-07-01] MEDS: pantoprazole 40 mg SDV IVP (12:26)
--- NOTE | 2022-07-01 15:31 | W.PM.NPUPNS ---
Subjective NPU Subjective: Patient presented today being quite pleasant and denying any major problems. He identified being aware that there was a plan for a [facility] facility and he appeared to agree that that was a good idea. He did have some somatic complaints but in general reported that things were fine and he was awaiting placement. Mental Status Exam MSE Comments: This is a slender elderly white male in hospital gown with limited grooming but adequate eye contact. No abnormal movements. Cooperative with exam in no acute distress. His speech was normal in regards to rate rhythm and prosody. He did appear to have some word finding problems. Mood described as fine, affect congruent. Thought process was less confused to some degree today. He knew that he was in the hospital. He had reported being in [facility]. He was not oriented to date month year or day of the week. There was no clear evidence of delusional thinking. He did not appear to be responding to internal stimuli. His insight was fair. His judgment was poor. His impulse control appeared limited at this time. His attention span was impaired his ability to abstract appeared impaired when asked similarities and proverbs. Vitals/I&O/Wt Last Vital Signs Temp 98.2 F 07/01/22 20:00 Pulse 87 07/01/22 20:00 Resp 17 07/01/22 20:00 BP 125/69 07/01/22 20:00 Pulse Ox 94 07/01/22 20:00 O2 Del Method 06/30/22 14:00 Weight last 48 hrs Weight 69.989 kg Weight 69.938 kg Physical Exam Urinary Catheter Management: Vincent: Cath Placed During This Visit: yes Reason for Continuing Indwelling Catheter: Other Urinary Catheter Date of Insertion: 06/28/22 Urinary Catheter Time of Insertion: 19:44 Data NPU 07/02/22 03:52 07/02/22 03:52 Micro: Microbiology 07/02/22 04:00 Blood Culture - Preliminary Blood SPECIMEN COLLECTED 07/02/22 03:52 Blood Culture - Preliminary Blood SPECIMEN COLLECTED 06/28/22 22:12 Blood Culture - Final Blood Escherichia coli esbl Escherichia coli 06/28/22 18:29 Urine Culture - Final Urine,Clean Catch Escherichia coli esbl 06/30/22 02:18 Blood Culture - Preliminary Blood Escherichia coli Microbiology 07/02/22 04:00 Blood Blood Culture - Preliminary SPECIMEN COLLECTED 07/02/22 03:52 Blood Blood Culture - Preliminary SPECIMEN COLLECTED 06/28/22 22:12 Blood Blood Culture - Final Escherichia coli esbl Escherichia coli 06/28/22 18:29 Urine,Clean Catch Urine Culture - Final Escherichia coli esbl 06/30/22 02:18 Blood Blood Culture - Preliminary Escherichia coli A&P Assessment and plan (1) Major depressive disorder: (2) Dementia: Plan Is an 82-year-old white male who appears depressed while suffering from likely dementia as well with worsening symptoms noted and reported over the past 2 months. It is appropriate to have the patient on an antidepressant as well as a anti-Alzheimer's agent at this time. He would likely benefit from additional support hopefully he would be able to stay with a family member at this time. 1. Continue SSRI/anti-Alzheimer medication as well. 2. Support maximizing sunlight in environment. 3. Encourage having date and time present to patient directly accessible to patient to minimize confusion 4. Low dose antipsychotic may be helpful if agitated. 5. Agree with discharge to a [facility] facility. I recommend an [facility] evaluation for independent living. 6. We will sign off for now. Please contact if any additional input is needed. Attestations NPU Medical Necessity Statement*: N/A. Please see primary team note for medical necessity. Coding Level of Care Code Acute Code for [facility] Fwd Diagnoses Major depressive disorder F32.9 Dementia F03.90
[2022-07-01 17:10] LABS: Glucose Point of Care 108 mg/dL (70-110)
--- NOTE | 2022-07-01 17:27 | P.PN_ITS ---
Subjective Subjective: No acute events overnight. Patient has remained hemodynamically stable and afebrile. Continues to remain on room air. Appetite remains poor. Complaining of abdominal pain. Had bowel movement yesterday. Daughter at bedside. Vitals/I&O/Wt Last Vital Signs Temp 97.4 F L 07/01/22 15:28 Pulse 82 07/01/22 15:28 Resp 16 07/01/22 15:28 BP 126/71 07/01/22 15:28 Pulse Ox 93 07/01/22 05:12 O2 Del Method 06/30/22 14:00 07/01/22 07/01/22 07/01/22 06:59 14:59 22:59 Intake Total 1350 / 3680 1328.333 / 1328.333 Output Total 600 / 1000 Balance 750 / 2680 1328.333 / 1328.333 Weight last 48 hrs Weight 67.699 kg Physical Exam Narrative: General: No acute distress, AO x3, depressed, dehydrated HEENT: PERRLA, pupils bilaterally equal and reactive Chest:Bronchial breath sounds b/l ,decreased air entry, equal good air entry bilaterally, no more fine basal crackles CVS: S1-S2 regular, no murmurs, no tachycardia, no gallops, no rubs Abdomen: Soft, soft generalized tenderness all over her abdomen, no guarding, no rebound no organomegaly, bowel sounds present, morbidly obese Neuro: No focal deficits, no facial deformity, AO x3, power 5/5 in all limbs Psych: COMMON NORMALS: mental status grossly normal, Normal thought process present, cooperative, speech normal, denies hallucinations, denies homicidal ideation and denies suicidal ideation APPEARANCE: Yes disheveled ATTITUDE: Yes engaged, No uncooperative, No agitated, No aggressive and No hostile ACTIVITY/MOTOR BEHAVIOR: Yes Avoids eye contact (attititude/behavior) SPEECH: Yes normal speech, Yes soft and Yes delayed MOOD & AFFECT: Yes depressed mood, Yes sad and Yes tearful THOUGHT PROCESS: Normal thought process present and Circumstantial thought process present Urinary Catheter Management: Vincent: Cath Placed During This Visit: yes Reason for Continuing Indwelling Catheter: Acute Urinary Retention or O bstruction Urinary Catheter Date of Insertion: 06/28/22 Urinary Catheter Time of Insertion: 19:44 Data 07/01/22 04:54 07/01/22 04:54 Micro: Microbiology 06/28/22 22:12 Blood Culture - Final Blood Escherichia coli esbl Escherichia coli 06/28/22 18:29 Urine Culture - Final Urine,Clean Catch Escherichia coli esbl 06/30/22 02:18 Blood Culture - Preliminary Blood Escherichia coli 06/30/22 02:20 Blood Culture - Preliminary Blood NEGATIVE TO DATE 06/29/22 18:48 MRSA Culture - Final Nose A&P Assessment and plan (1) Sepsis: Present on admission. Ruled in by tachycardia, leukocytosis, elevated lactate, endorgan damage with MONICA and encephalopathy. ESBL bacteremia. Possible source of infection UTI Not given complete sepsis bolus given improving hemodynamics and possible history of CHF Qualifiers: Sepsis type: Escherichia coli Sepsis acute organ dysfunction status: with acute organ dysfunction Severe sepsis acute organ dysfunction type: acute renal failure Severe sepsis shock status: without septic shock (2) ESBL (extended spectrum beta-lactamase) producing bacteria infection: (3) E coli bacteremia: ESBL bacteremia. Repeat blood culture from 06/30 again positive. Repeat blood culture on 07/02. Continue with meropenem. (4) Thrombocytopenia: Worsening. Hemoglobin stable. Could be secondary to sepsis from ESBL E. coli bacteremia but cannot rule out HIT. Hold off on heparin. Monitor hemoglobin. HIT panel sent. (5) MONICA (acute kidney injury): Along with most likely second to dehydration from poor oral intake along with sepsis. Creatinine stabilizing around 1.5. BUN slightly trending down. Monitor BMP daily. Medical reconciliation done for nephrotoxic drugs. Fena-1.6%. Consistent with intrinsic. (6) UTI (urinary tract infection): CT abdomen pelvis appreciated. No obstructive nephropathy. Does have history of bladder cancer with changes related to the same in urinary bladder and nonobstructive renal calculi and left lower pole of kidney. Antibiotics as above. (7) Hyponatremia: Secondary to hypovolemic hyponatremia. Resolving up to 132 today. Continue with normal saline at 100 cc/h. Monitor BMP daily. (8) Hyperkalemia: Resolved. (9) Type 2 diabetes mellitus: HbA1c 6.9. Noncompliant to glipizide and Sitagliptin at home. Continue with insulin sliding scale. Carb consistent renal nondialysis diet. (10) Generalized weakness: Most likely in setting of acute kidney injury, sepsis and dehydration. TSH, vitamin B12 and folate within normal limits. Appreciate PT evaluation. (11) Acute dehydration: Gentle rehydration. Follow chemistries requested for electrolytes including hyponatremia. (12) Major depressive disorder: Getting worse since passing away of life. Continue with Celexa 20 mg, donepezil 10 mg at night. Sitter at bedside. Appreciate psych recommendations. Given the acuteness of the illness patient would benefit from good social bernard pport as an outpatient to prevent from worsening. Will discuss further with patient's family members for close monitoring as an outpatient with follow-up at [facility] versus possible [facility] placement. (13) Transaminitis: Suspect secondary to dehydration, rehydration as above. Check hepatitis panel. CT abdomen pelvis negative for liver pathology. (14) Hyperbilirubinemia: Suspected secondary to cholestasis secondary to dehydration as above. Hold statin for now. Gentle rehydration. Follow-up chemistry requested. (15) Suicidal ideation: No active ideation as per patient today. Psych consult. Most likely in setting of severe depression. Sitter at bedside. (16) Dementia: (17) High anion gap metabolic acidosis: Resolved. Secondary to starvation ketosis along with acute kidney injury. Continue to monitor. (18) Hypermagnesemia: Gentle IV hydration. Follow-up magnesium requested. 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 (20) Status post lumbar spinal fusion: In April (21) Physical deconditioning: Plan Glaucoma HTN Lumbar stenosis history Hypothyroidism Full code. Renal diabetic nondialysis diet with protein shakes with each meal. Protonix OPD prophylaxis SCDs for DVT prophylaxis PT evaluation. Patient's care discussed in detail with patient daughter at bedside. We discussed that unfortunately he is severely deconditioned and depressed secondary to ongoing infection and social stressors as an outpatient. Discussed in detail psychiatric recommendation. Daughter states she will not be able to take care of him during the day as she has to go to work and is worried that while she is away patient can deteriorate further more over given his physical deconditioning she will not go to take care of it by herself. Daughter states this is the second time patient has done the same since passing of his mother . Discussed in detail that patient is AOx3 and if he continues to have the wishes of not continuing with medical therapy we should consider hospice. Daughter is agreeable. Plan for now is to continue the current treatment. Discharge planning: Given severe depression with possibility of worsening illness as an outpatient and poor social support since passing away of his recently will need to discuss further with patient's family regarding closer monitoring as an outpatient. Patient is severely physically deconditioned requiring extensive physical therapy as per PT evaluation. Plan to discharge to SNF. Care management alerted. Attestations Medical Necessity Statement*: Requires further hospitalization for management of ESBL bacteremia in setting of complicated UTI, severe dehydration and physical deconditioning along with acute kidney injury secondary to poor oral intake in a patient with severe depression, thrombocytopenia while safe discharge planning is sought. Diagnoses Sepsis A41.9 Sepsis type: Escherichia coli Sepsis acute organ dysfunction status: with acute organ dysfunction Severe sepsis acute organ dysfunction type: acute renal failure Severe sepsis shock status: without septic shock ESBL (extended spectrum beta-lactamase) producing bacteria infection A49.9; Z16.12 E coli bacteremia R78.81; B96.20 Thrombocytopenia D69.6 MONICA (acute kidney injury) N17.9 UTI (urinary tract infection) N39.0 Hyponatremia E87.1 Hyperkalemia E87.5 Type 2 diabetes mellitus E11.9 Generalized weakness R53.1 Acute dehydration E86.0 Major depressive disorder F32.9 Transaminitis R74.01 Hyperbilirubinemia E80.6 Suicidal ideation R45.851 Dementia F03.90 High anion gap metabolic acidosis E87.29 Hypermagnesemia E83.41 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
[2022-07-01 20:17] LABS: Glucose Point of Care 212 mg/dL (70-110)
[2022-07-01] MEDS: donepezil 5 MG Tablet 10 MG PO (20:55)
[2022-07-02 04:00] VITALS: BP 122/75; PULSE 91; RESP 16; TEMP 36.3; O2SAT 92
[2022-07-02 04:11] LABS: Basophils # 0.1 10^3/uL (0.0-0.1); Basophils % 0.3 %; Eosinophils % 0.1 %; Hematocrit 39.1 % (42.0-52.0); Hemoglobin 11.8 g/dL (11.7-16.6); Lymphocytes # 1.1 10^3/uL (0.8-4.8); Lymphocytes % 6.9 %; Mean Corpuscular HGB Conc 30.2 g/dL (30.0-36.0); Mean Corpuscular Hemoglobin 29.3 pg (28.0-34.0); Mean Platelet Volume 12.7 fL (7.4-10.4); Monocytes % 6.1 %; Neutrophils # 13.51 10^3/uL (1.8-7.7); Neutrophils % 84.5 %; Nucleated Red Blood Cells % 0 %; Platelet Count 62 10^3/cmm (130-400); Red Blood Count 4.03 10^6/uL (4.1-5.3); Red Cell Distribution Width 16.5 % (12.1-15.1)
[2022-07-02 04:27] LABS: Alanine Aminotransferase 49 U/L (0-41); Albumin Level 1.5 g/dL (3.5-5.2); Alkaline Phosphatase 226 U/L (40-130); Anion Gap 9.7 (5-19); Aspartate Amino Transferase 30 U/L (0-40); Blood Urea Nitrogen 59 mg/dL (8-23); Calcium 7.7 mg/dL (8.5-10.5); Carbon Dioxide 21 mmol/L (22-29); Chloride 107 mmol/L (98-107); Globulin 3.1 g/dL (1.3-4.6); Glucose 165 mg/dL (65-115); Osmolality Calculated 296 mOsm/kg (285-295); Potassium 4.7 mmol/L (3.5-5.1); Sodium 133 mmol/L (136-145); Total Bilirubin 0.5 mg/dL (0.15-1.2); Total Protein 4.6 g/dL (6.6-8.7)
[2022-07-02 06:31] LABS: Glucose Point of Care 163 mg/dL (70-110)
[2022-07-02 08:00] VITALS: BP 119/72; PULSE 88; RESP 17; TEMP 36.7; O2SAT 94
[2022-07-02] MEDS: gabapentin 100 mg Capsule PO ×3 (08:55→20:35)
[2022-07-02] MEDS: insulin lispro 100 unit/1 mL SUBCUT ×3 (08:55→17:18)
[2022-07-02] MEDS: citalopram 20 mg Tablet PO (08:55)
[2022-07-02] MEDS: levothyroxine 100 mcg Tablet PO (08:55)
[2022-07-02] MEDS: sodium chloride 0.9% 1,000 ML 100 ML IV ×2 (08:57→22:48)
[2022-07-02] MEDS: pantoprazole 40 mg SDV IVP (09:09)
[2022-07-02 12:00] VITALS: BP 111/67; PULSE 85; RESP 16; TEMP 36.7; O2SAT 95
[2022-07-02] MEDS: albumin 25 G/100 ML BAG 60 G IV ×2 (12:29→19:46)
[2022-07-02] MEDS: meropenem 1,000 MG in sodium chloride 0.9% (plus) 50 ML 100 MG IV ×2 (12:47→23:31)
[2022-07-02 13:55] LABS: Glucose Point of Care 217 mg/dL (70-110)
--- NOTE | 2022-07-02 16:18 | PM.PN ---
Subjective Subjective: No acute events overnight. Patient has remained hemodynamically stable and afebrile. Continues to to remain on room air. Continues to have poor oral appetite. Today morning examination patient is sleeping. As per sitter patient is having poor oral intake. Patient states he is not hungry. Documented urine output of 800 cc in last 24 hours. 2 bowel movements reported. Vitals/I&O/Wt Last Vital Signs Temp 98.0 F 07/02/22 12:00 Pulse 85 07/02/22 12:00 Resp 16 07/02/22 12:00 BP 111/67 07/02/22 12:00 Pulse Ox 95 07/02/22 12:00 O2 Del Method 07/02/22 12:00 07/02/22 07/02/22 07/02/22 06:59 14:59 22:59 Intake Total 1050 / 2498.333 1345 / 1345 Output Total 400 / 800 575 / 575 Balance 650 / 1698.333 770 / 770 Weight last 48 hrs Weight 69.989 kg Weight 69.938 kg Physical Exam Narrative: General: No acute distress, AO x3, depressed, dehydrated HEENT: PERRLA, pupils bilaterally equal and reactive Chest:Bronchial breath sounds b/l ,decreased air entry, equal good air entry bilaterally, no more fine basal crackles CVS: S1-S2 regular, no murmurs, no tachycardia, no gallops, no rubs Abdomen: Soft, soft generalized tenderness all over her abdomen, no guarding, no rebound no organomegaly, bowel sounds present, morbidly obese Neuro: No focal deficits, no facial deformity, AO x3, power 5/5 in all limbs Psych: COMMON NORMALS: mental status grossly normal, Normal thought process present, cooperative, speech normal, denies hallucinations, denies homicidal ideation and denies suicidal ideation APPEARANCE: Yes disheveled ATTITUDE: Yes engaged, No uncooperative, No agitated, No aggressive and No hostile ACTIVITY/MOTOR BEHAVIOR: Yes Avoids eye contact (attititude/behavior) SPEECH: Yes normal speech, Yes soft and Yes delayed MOOD & AFFECT: Yes depressed mood, Yes sad and Yes tearful THOUGHT PROCESS: Normal thought process present and Circumstantial thought process present Urinary Catheter Management: Vincent: Cath Placed During This Visit: yes Reason for Continuing Indwelling Catheter: Other Urinary Catheter Date of Insertion: 06/28/22 Urinary Catheter Time of Insertion: 19:44 Data 07/02/22 03:52 07/02/22 03:52 Micro: Microbiology 06/30/22 02:20 Blood Culture - Final Blood Escherichia coli esbl 06/30/22 02:18 Blood Culture - Final Blood Escherichia coli esbl 06/28/22 22:03 Blood Culture - Final Blood Escherichia coli esbl 07/02/22 04:00 Blood Culture - Preliminary Blood SPECIMEN COLLECTED 07/02/22 03:52 Blood Culture - Preliminary Blood SPECIMEN COLLECTED 06/28/22 22:12 Blood Culture - Final Blood Escherichia coli esbl Escherichia coli 06/28/22 18:29 Urine Culture - Final Urine,Clean Catch Escherichia coli esbl A&P Assessment and plan (1) Sepsis: Present on admission. Ruled in by tachycardia, leukocytosis, elevated lactate, endorgan damage with MONICA and encephalopathy. ESBL bacteremia. Possible source of infection UTI Not given complete sepsis bolus given improving hemodynamics and possible history of CHF Qualifiers: Sepsis type: Escherichia coli Sepsis acute organ dysfunction status: with acute organ dysfunction Severe sepsis acute organ dysfunction type: acute renal failure Severe sepsis shock status: without septic shock (2) ESBL (extended spectrum beta-lactamase) producing bacteria infection: (3) E coli bacteremia: ESBL bacteremia. Repeat blood culture from 06/30 again positive. Repeat blood culture on 07/02. Continue with meropenem. (4) Thrombocytopenia: Stable today. Hemoglobin stable. Could be secondary to sepsis from ESBL E. coli bacteremia but cannot rule out HIT. Hold off on heparin. Monitor hemoglobin. HIT panel sent. (5) MONICA (acute kidney injury): Along with most likely second to dehydration from poor oral intake along with sepsis along with possibility of baseline diabetic nephropathy. Creatinine stabilizing around 1.5 to 1.7. BUN slightly trending down. Monitor BMP daily. Medical reconciliation done for nephrotoxic drugs. Fena-1.6%. Consistent with intrinsic. (6) UTI (urinary tract infection): CT abdomen pelvis appreciated. No obstructive nephropathy. Does have history of bladder cancer with changes related to the same in urinary bladder and nonobstructive renal calculi and left lower pole of kidney. Antibiotics as above. (7) Hyponatremia: Resolved. Secondary to hypovolemic hyponatremia. Continue with normal saline at 100 cc/h. Monitor BMP daily. (8) Hyperkalemia: Resolved. (9) Type 2 diabetes mellitus: HbA1c 6.9. Noncompliant to glipizide and Sitagliptin at home. Continue with insulin sliding scale. Carb consistent renal nondialysis diet. (10) Generalized weakness: Most likely in setting of acute kidney injury, sepsis and dehydration. TSH, vitamin B12 and folate within normal limits. Appreciate PT evaluation. (11) Acute dehydration: Gentle rehydration. Follow chemistries requested for electrolytes including hyponatremia. (12) Major depressive disorder: Getting worse since passing away of life. Continue with Celexa 20 mg, donepezil 10 mg at night. Sitter at bedside. Appreciate psych recommendations. Given the acuteness of the illness patient would benefit from good social support as an outpatient to prevent from worsening. Will discuss further with patient's family members for close monitoring as an outpatient with follow-up at [facility] versus possible [facility] placement. (13) Transaminitis: Suspect secondary to dehydration, rehydration as above. CT abdomen pelvis negative for liver pathology. (14) Hyperbilirubinemia: Resolved. Suspected secondary to cholestasis secondary to dehydration as above. Hold statin for now. (15) Suicidal ideation: No active ideation as per patient today. Psych consult. Most likely in setting of severe depression. Sitter at bedside. (16) Dementia: (17) High anion gap metabolic acidosis: Resolved. Secondary to starvation ketosis along with acute kidney injury. Continue to monitor. (18) Hypermagnesemia: Gentle IV hydration. Follow-up magnesium requested. 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 (20) Status post lumbar spinal fusion: In April (21) Physical deconditioning: (22) Anorexia: Most likely in setting of severe dementia. Start on dronabinol twice daily during meals. Plan Glaucoma HTN Lumbar stenosis history Hypothyroidism Full code. Renal diabetic nondialysis diet with protein shakes with each meal. Protonix OPD prophylaxis SCDs for DVT prophylaxis PT evaluation. Patient's care discussed in detail with patient daughter at bedside. We discussed that unfortunately he is severely deconditioned and depressed secondary to ongoing infection and social stressors as an outpatient. Discussed in detail psychiatric recommendation. Daughter states she will not be able to take care of him during the day as she has to go to work and is worried that while she is away patient can deteriorate further more over given his physical deconditioning she will not go to take care of it by herself. Daughter states this is the second time patient has done the same since passing of his mother . Discussed in detail that patient is AOx3 and if he continues to have the wishes of not continuing with medical therapy we should consider hospice. Daughter is agreeable. Plan for now is to continue the current treatment. Discharge planning: Given severe depression with possibility of worsening illness as an outpatient and poor social support since passing away of his recently will need to discuss further with patient's family regarding closer monitoring as an outpatient. Patient is severely physically deconditioned requiring extensive physical therapy as per PT evaluation. Plan to discharge to SNF. Care management alerted. Attestations Medical Necessity Statement*: Requires further hospitalization for management of ESBL bacteremia in setting of complicated UTI, acute kidney injury, severe depression, physical deconditioning and anorexia while safe discharge planning is sought given all of the above Diagnoses Sepsis A41.9 Sepsis type: Escherichia coli Sepsis acute organ dysfunction status: with acute organ dysfunction Severe sepsis acute organ dysfunction type: acute renal failure Severe sepsis shock status: without septic shock ESBL (extended spectrum beta-lactamase) producing bacteria infection A49.9; Z16.12 E coli bacteremia R78.81; B96.20 Thrombocytopenia D69.6 MONICA (acute kidney injury) N17.9 UTI (urinary tract infection) N39.0 Hyponatremia E87.1 Hyperkalemia E87.5 Type 2 diabetes mellitus E11.9 Generalized weakness R53.1 Acute dehydration E86.0 Major depressive disorder F32.9 Transaminitis R74.01 Hyperbilirubinemia E80.6 Suicidal ideation R45.851 Dementia F03.90 High anion gap metabolic acidosis E87.29 Hypermagnesemia E83.41 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
[2022-07-02 17:11] LABS: Glucose Point of Care 158 mg/dL (70-110)
[2022-07-02] MEDS: dronabinol 2.5 mg Capsule PO (17:18)
[2022-07-02] MEDS: sennosides-docusate Tablet 1 TAB PO (17:18)
[2022-07-02 17:21] VITALS: BP 103/65; PULSE 79; RESP 16; TEMP 36.6; O2SAT 97
[2022-07-02 19:18] VITALS: BP 132/72; PULSE 77; RESP 16; TEMP 36.3; O2SAT 94
[2022-07-02] MEDS: donepezil 5 MG Tablet PO (20:34)
[2022-07-02 20:53] LABS: Glucose Point of Care 126 mg/dL (70-110)
[2022-07-02 23:36] VITALS: BP 143/75; PULSE 91; RESP 16; TEMP 36.8; O2SAT 94
[2022-07-03] MEDS: albumin 25 G/100 ML BAG 60 G IV ×3 (03:38→20:41)
[2022-07-03 04:00] VITALS: BP 149/76; PULSE 82; RESP 16; TEMP 36.3; O2SAT 95
[2022-07-03 04:42] LABS: Basophils % 0.1 %; Eosinophils % 0.4 %; Hematocrit 33.9 % (42.0-52.0); Hemoglobin 10.3 g/dL (11.7-16.6); Lymphocytes # 0.8 10^3/uL (0.8-4.8); Lymphocytes % 8.5 %; Mean Corpuscular HGB Conc 30.4 g/dL (30.0-36.0); Mean Corpuscular Hemoglobin 30.2 pg (28.0-34.0); Mean Corpuscular Volume 99.4 fl (80-94); Monocytes # 0.7 10^3/uL (0.2-0.9); Monocytes % 7.3 %; Neutrophils # 7.29 10^3/uL (1.8-7.7); Neutrophils % 81.9 %; Nucleated Red Blood Cells % 0 %; Platelet Count 53 10^3/cmm (130-400); Red Blood Count 3.41 10^6/uL (4.1-5.3); Red Cell Distribution Width 16.9 % (12.1-15.1); White Blood Count 8.9 10^3/uL (4.0-10.0)
[2022-07-03 05:06] LABS: Alanine Aminotransferase 28 U/L (0-41); Albumin Level 2.4 g/dL (3.5-5.2); Alkaline Phosphatase 164 U/L (40-130); Anion Gap 11.4 (5-19); Aspartate Amino Transferase 23 U/L (0-40); Blood Urea Nitrogen 54 mg/dL (8-23); Carbon Dioxide 21 mmol/L (22-29); Chloride 112 mmol/L (98-107); Globulin 2.4 g/dL (1.3-4.6); Glucose 118 mg/dL (65-115); Osmolality Calculated 306 mOsm/kg (285-295); Potassium 4.4 mmol/L (3.5-5.1); Sodium 140 mmol/L (136-145); Total Bilirubin 0.7 mg/dL (0.15-1.2); Total Protein 4.8 g/dL (6.6-8.7)
[2022-07-03] MEDS: dronabinol 2.5 mg Capsule PO ×2 (06:03→17:15)
[2022-07-03 06:49] LABS: Glucose Point of Care 137 mg/dL (70-110)
[2022-07-03 08:10] VITALS: BP 145/69; PULSE 79; RESP 14; TEMP 36.3; O2SAT 96
[2022-07-03] MEDS: sennosides-docusate Tablet 1 TAB PO ×2 (09:08→17:15)
[2022-07-03] MEDS: gabapentin 100 mg Capsule PO ×3 (09:09→20:54)
[2022-07-03] MEDS: levothyroxine 100 mcg Tablet PO (09:09)
[2022-07-03] MEDS: citalopram 20 mg Tablet 10 MG PO (09:09)
[2022-07-03] MEDS: pantoprazole 40 mg SDV IVP (09:10)
[2022-07-03] MEDS: acetaminophen 325 mg Tablet PO (11:09)
[2022-07-03] MEDS: sodium chloride 0.9% 1,000 ML 100 ML IV (11:12)
[2022-07-03 11:15] LABS: Glucose Point of Care 120 mg/dL (70-110)
[2022-07-03 12:13] VITALS: BP 128/70; PULSE 93; RESP 18; TEMP 36.7; O2SAT 90
[2022-07-03] MEDS: meropenem 1,000 MG in sodium chloride 0.9% (plus) 50 ML 100 MG IV (13:11)
--- NOTE | 2022-07-03 14:21 | PC.OT ---
OT TREATMENT ATTEMPTED. PATIENT SLEEPING SOUNDLY. 1:1 STATES THAT THE PATIENT DID NOT EAT HIS LUNCH. WILL ATTEMPT AGAIN AT A LATER TIME.
--- NOTE | 2022-07-03 16:05 | PM.PN ---
Subjective Subjective: No acute events overnight. Patient laying comfortably in bed. Complaining occasionally of abdominal pain. Had 1 bowel movement yesterday. Good urine output. Continues to have poor oral intake. Working occasionally with PT and OT. Vitals/I&O/Wt Last Vital Signs Temp 98.1 F 07/03/22 12:13 Pulse 93 07/03/22 12:13 Resp 18 07/03/22 12:13 BP 128/70 07/03/22 12:13 Pulse Ox 90 07/03/22 12:13 O2 Del Method 07/03/22 12:13 07/03/22 07/03/22 07/03/22 06:59 14:59 22:59 Intake Total 150 / 2835 1516.667 / 1516.667 50 / 1566.667 Output Total 1050 / 2625 1200 / 1200 Balance -900 / 210 1516.667 / 1516.667 -1150 / 366.667 Weight last 48 hrs Weight 68.634 kg Weight 69.989 kg Weight 69.938 kg Physical Exam Narrative: General: No acute distress, AO x3, depressed, HEENT: PERRLA, pupils bilaterally equal and reactive Chest:Bronchial breath sounds b/l ,decreased air entry, equal good air entry bilaterally, no more fine basal crackles CVS: S1-S2 regular, no murmurs, no tachycardia, no gallops, no rubs Abdomen: Soft, soft generalized tenderness all over her abdomen, no guarding, no rebound no organomegaly, bowel sounds present, morbidly obese Neuro: No focal deficits, no facial deformity, AO x3, power 5/5 in all limbs Psych: COMMON NORMALS: mental status grossly normal, Normal thought process present, cooperative, speech normal, denies hallucinations, denies homicidal ideation and denies suicidal ideation APPEARANCE: Yes disheveled ATTITUDE: Yes engaged, No uncooperative, No agitated, No aggressive and No hostile ACTIVITY/MOTOR BEHAVIOR: Yes Avoids eye contact (attititude/behavior) SPEECH: Yes normal speech, Yes soft and Yes delayed MOOD & AFFECT: Yes depressed mood, Yes sad and Yes tearful THOUGHT PROCESS: Normal thought process present and Circumstantial thought process present Urinary Catheter Management: Vincent: Cath Placed During This Visit: yes Reason for Continuing Indwelling Catheter: Other Urinary Catheter Date of Insertion: 06/28/22 Urinary Catheter Time of Insertion: 19:44 Data 07/03/22 Unknown 07/03/22 Unknown Micro: Microbiology 07/02/22 04:00 Blood Culture - Preliminary Blood NEGATIVE TO DATE 07/02/22 03:52 Blood Culture - Preliminary Blood NEGATIVE TO DATE 06/30/22 02:20 Blood Culture - Final Blood Escherichia coli esbl 06/30/22 02:18 Blood Culture - Final Blood Escherichia coli esbl 06/28/22 22:03 Blood Culture - Final Blood Escherichia coli esbl A&P Assessment and plan (1) Sepsis: Present on admission. Ruled in by tachycardia, leukocytosis, elevated lactate, endorgan damage with MONICA and encephalopathy. ESBL bacteremia. Possible source of infection UTI Not given complete sepsis bolus given improving hemodynamics and possible history of CHF Qualifiers: Sepsis type: Escherichia coli Sepsis acute organ dysfunction status: with acute organ dysfunction Severe sepsis acute organ dysfunction type: acute renal failure Severe sepsis shock status: without septic shock (2) ESBL (extended spectrum beta-lactamase) producing bacteria infection: (3) E coli bacteremia: ESBL bacteremia. Repeat blood culture from 06/30 again positive. Repeat blood culture on 07/02. Continue with meropenem. (4) Thrombocytopenia: Stable today. Hemoglobin stable. Could be secondary to sepsis from ESBL E. coli bacteremia but cannot rule out HIT. Hold off on heparin. Monitor hemoglobin. HIT panel sent. (5) MONICA (acute kidney injury): Along with most likely second to dehydration from poor oral intake along with sepsis along with possibility of baseline diabetic nephropathy. Creatinine stabilizing around 1.5 to 1.7. BUN slightly trending down. Monitor BMP daily. Medical reconciliation done for nephrotoxic drugs. Fena-1.6%. Consistent with intrinsic. (6) UTI (urinary tract infection): CT abdomen pelvis appreciated. No obstructive nephropathy. Does have history of bladder cancer with changes related to the same in urinary bladder and nonobstructive renal calculi and left lower pole of kidney. Antibiotics as above. (7) Hyponatremia: Resolved. Secondary to hypovolemic hyponatremia. Continue with normal saline at 100 cc/h. Monitor BMP daily. (8) Hyperkalemia: Resolved. (9) Type 2 diabetes mellitus: HbA1c 6.9. Noncompliant to glipizide and Sitagliptin at home. Continue with insulin sliding scale. Carb consistent renal nondialysis diet. (10) Generalized weakness: Most likely in setting of acute kidney injury, sepsis and dehydration. TSH, vitamin B12 and folate within normal limits. Appreciate PT evaluation. (11) Acute dehydration: Gentle rehydration. Follow chemistries requested for electrolytes including hyponatremia. (12) Major depressive disorder: Getting worse since passing away of life. Continue with Celexa 20 mg, donepezil 10 mg at night. Sitter at bedside. Appreciate psych recommendations. Given the acuteness of the illness patient would benefit from good social support as an outpatient to prevent from worsening. Will discuss further with patient's family members for close monitoring as an outpatient with follow-up at [facility] versus possible [facility] placement. (13) Transaminitis: Suspect secondary to dehydration, rehydration as above. CT abdomen pelvis negative for liver pathology. (14) Hyperbilirubinemia: Resolved. Suspected secondary to cholestasis secondary to dehydration as above. Hold statin for now. (15) Suicidal ideation: No active ideation as per patient today. Psych consult. Most likely in setting of severe depression. Sitter at bedside. (16) Dementia: (17) High anion gap metabolic acidosis: Resolved. Secondary to starvation ketosis along with acute kidney injury. Continue to monitor. (18) Hypermagnesemia: Gentle IV hydration. Follow-up magnesium requested. 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 (20) Status post lumbar spinal fusion: In April (21) Physical deconditioning: (22) Anorexia: Most likely in setting of severe dementia. Start on dronabinol twice daily during meals. Plan Glaucoma HTN Lumbar stenosis history Hypothyroidism Full code. Renal diabetic nondialysis diet with protein shakes with each meal. Protonix OPD prophylaxis SCDs for DVT prophylaxis PT evaluation. Patient's care discussed in detail with patient daughter at bedside. We discussed that unfortunately he is severely deconditioned and depressed secondary to ongoing infection and social stressors as an outpatient. Discussed in detail psychiatric recommendation. Daughter states she will not be able to take care of him during the day as she has to go to work and is worried that while she is away patient can deteriorate further more over given his physical deconditioning she will not go to take care of it by herself. Daughter states this is the second time patient has done the same since passing of his mother . Discussed in detail that patient is AOx3 and if he continues to have the wishes of not continuing with medical therapy we should consider hospice. Daughter is agreeable. Plan for now is to continue the current treatment. Discharge planning: Given severe depression with possibility of worsening illness as an outpatient and poor social support since passing away of his recently will need to discuss further with patient's family regarding closer monitoring as an outpatient. Patient is severely physically deconditioned requiring extensive physical therapy as per PT evaluation. Plan to discharge to SNF. Care management alerted. Plan for the day: Continue with meropenem. Repeat blood culture from 07/02 so far negative. Leukocytosis seems to have resolved. Switch fluid to Ringer lactate at 75 cc/h. Monitor BMP daily. Thrombocytopenia stable. Hemoglobin stable. Continue to monitor. Awaiting HIT panel. Continue to encourage increase oral intake, PT and OT participation. Continue with appetite stimulant and protein shakes. Continue with albumin every 8 hourly for 1 more day. Attestations Medical Necessity Statement*: Requires further hospitalization for management of ESBL bacteremia in setting of complicated UTI, severe depression, anorexia physical deconditioning while safe discharge planning is sought. Diagnoses Sepsis A41.9 Sepsis type: Escherichia coli Sepsis acute organ dysfunction status: with acute organ dysfunction Severe sepsis acute organ dysfunction type: acute renal failure Severe sepsis shock status: without septic shock ESBL (extended spectrum beta-lactamase) producing bacteria infection A49.9; Z16.12 E coli bacteremia R78.81; B96.20 Thrombocytopenia D69.6 MONICA (acute kidney injury) N17.9 UTI (urinary tract infection) N39.0 Hyponatremia E87.1 Hyperkalemia E87.5 Type 2 diabetes mellitus E11.9 Generalized weakness R53.1 Acute dehydration E86.0 Major depressive disorder F32.9 Transaminitis R74.01 Hyperbilirubinemia E80.6 Suicidal ideation R45.851 Dementia F03.90 High anion gap metabolic acidosis E87.29 Hypermagnesemia E83.41 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
[2022-07-03 16:18] VITALS: BP 152/64; PULSE 85; RESP 18; TEMP 36.4; O2SAT 91
--- NOTE | 2022-07-03 16:30 | PC.OT ---
OT TREATMENT ATTEMPTED TWICE IN P.M. PATIENT CONTINUES TO SLEEP. WILL ATTEMPT AGAIN TOMORROW.
[2022-07-03] MEDS: lactated ringers 1,000 ML 75 ML IV (17:16)
[2022-07-03] MEDS: HYDROcodone-acetaminophen 5-325 mg Tablet 1 TAB PO (17:16)
[2022-07-03 17:18] LABS: Glucose Point of Care 146 mg/dL (70-110)
[2022-07-03] MEDS: insulin lispro 100 unit/1 mL SUBCUT (18:05)
[2022-07-03 20:00] VITALS: BP 138/70; PULSE 68; RESP 20; TEMP 36.2; O2SAT 92
[2022-07-03 20:31] LABS: Glucose Point of Care 116 mg/dL (70-110)
[2022-07-03] MEDS: donepezil 5 MG Tablet PO (20:54)
[2022-07-03 23:45] VITALS: BP 173/80; PULSE 90; RESP 16; TEMP 36.5; O2SAT 93
[2022-07-04] MEDS: meropenem 1,000 MG in sodium chloride 0.9% (plus) 50 ML 100 MG IV ×2 (00:15→11:47)
[2022-07-04] MEDS: albumin 25 G/100 ML BAG 60 G IV ×3 (03:44→17:54)
[2022-07-04 04:00] VITALS: BP 157/76; PULSE 88; RESP 16; TEMP 36.3; O2SAT 93
[2022-07-04 05:43] LABS: Alanine Aminotransferase 18 U/L (0-41); Albumin Level 3.3 g/dL (3.5-5.2); Alkaline Phosphatase 120 U/L (40-130); Anion Gap 9.9 (5-19); Aspartate Amino Transferase 19 U/L (0-40); Blood Urea Nitrogen 43 mg/dL (8-23); Calcium 8.5 mg/dL (8.5-10.5); Carbon Dioxide 24 mmol/L (22-29); Chloride 113 mmol/L (98-107); Globulin 1.8 g/dL (1.3-4.6); Glucose 127 mg/dL (65-115); Osmolality Calculated 308 mOsm/kg (285-295); Potassium 3.9 mmol/L (3.5-5.1); Sodium 143 mmol/L (136-145); Total Bilirubin 0.9 mg/dL (0.15-1.2); Total Protein 5.1 g/dL (6.6-8.7)
[2022-07-04] MEDS: dronabinol 2.5 mg Capsule PO ×2 (06:10→17:55)
[2022-07-04 06:31] LABS: Glucose Point of Care 123 mg/dL (70-110)
[2022-07-04] MEDS: gabapentin 100 mg Capsule PO ×3 (07:37→20:23)
[2022-07-04] MEDS: citalopram 20 mg Tablet 10 MG PO (07:37)
[2022-07-04] MEDS: levothyroxine 100 mcg Tablet PO (07:38)
[2022-07-04] MEDS: sennosides-docusate Tablet 1 TAB PO ×2 (07:38→17:55)
[2022-07-04 08:00] VITALS: BP 159/66; PULSE 83; RESP 13; TEMP 36.4; O2SAT 94
[2022-07-04] MEDS: pantoprazole 40 mg SDV IVP (08:26)
[2022-07-04] MEDS: HYDROcodone-acetaminophen 5-325 mg Tablet 1 TAB PO ×2 (09:51→17:55)
[2022-07-04 11:37] LABS: Glucose Point of Care 188 mg/dL (70-110)
[2022-07-04] MEDS: insulin lispro 100 unit/1 mL SUBCUT ×3 (11:47→21:29)
[2022-07-04] MEDS: lactated ringers 1,000 ML 75 ML IV (11:52)
[2022-07-04 12:00] VITALS: BP 117/67; PULSE 91; RESP 17; O2SAT 93
--- NOTE | 2022-07-04 13:35 | P.PN_ITS ---
Subjective Subjective: Status go. Patient working poorly with physical therapy. Poor appetite. Has been hemodynamically stable and afebrile. Again during examination today laying comfortably in bed. Wakes up to have some conversation sleeps off again. Vitals/I&O/Wt Last Vital Signs Temp 97.6 F 07/04/22 08:00 Pulse 91 07/04/22 12:00 Resp 17 07/04/22 12:00 BP 117/67 07/04/22 12:00 Pulse Ox 93 07/04/22 12:00 O2 Del Method 07/03/22 20:00 07/03/22 07/04/22 07/04/22 22:59 06:59 14:59 Intake Total 903.333 / 2420.000 150 / 2570.000 1267.5 / 1267.5 Output Total 1200 / 1200 1000 / 2200 1350 / 1350 Balance -296.667 / 1220.000 -850 / 370.000 -82.5 / -82.5 Weight last 48 hrs Weight 69.808 kg Weight 68.634 kg Physical Exam Narrative: General: No acute distress, AO x3, depressed, HEENT: PERRLA, pupils bilaterally equal and reactive Chest:Bronchial breath sounds b/l ,decreased air entry, equal good air entry bilaterally, no more fine basal crackles CVS: S1-S2 regular, no murmurs, no tachycardia, no gallops, no rubs Abdomen: Soft, soft generalized tenderness all over her abdomen, no guarding, no rebound no organomegaly, bowel sounds present, morbidly obese Neuro: No focal deficits, no facial deformity, AO x3, power 5/5 in all limbs Psych: COMMON NORMALS: mental status grossly normal, Normal thought process present, cooperative, speech normal, denies hallucinations, denies homicidal ideation and denies suicidal ideation APPEARANCE: Yes disheveled ATTITUDE: Yes engaged, No uncooperative, No agitated, No aggressive and No hostile ACTIVITY/MOTOR BEHAVIOR: Yes Avoids eye contact (attititude/behavior) SPEECH: Yes normal speech, Yes soft and Yes delayed MOOD & AFFECT: Yes depressed mood, Yes sad and Yes tearful THOUGHT PROCESS: Normal thought process present and Circumstantial thought process present Urinary Catheter Management: Vincent: Cath Placed During This Visit: yes Reason for Continuing Indwelling Catheter: Other Urinary Catheter Date of Insertion: 06/28/22 Urinary Catheter Time of Insertion: 19:44 Data 07/03/22 Unknown 07/04/22 05:06 A&P Assessment and plan (1) Sepsis: Present on admission. Ruled in by tachycardia, leukocytosis, elevated lactate, endorgan damage with MONICA and encephalopathy. ESBL bacteremia. Possible source of infection UTI Not given complete sepsis bolus given improving hemodynamics and possible history of CHF Qualifiers: Sepsis type: Escherichia coli Sepsis acute organ dysfunction status: with acute organ dysfunction Severe sepsis acute organ dysfunction type: acute renal failure Severe sepsis shock status: without septic shock (2) ESBL (extended spectrum beta-lactamase) producing bacteria infection: (3) E coli bacteremia: ESBL bacteremia. Repeat blood culture from 06/30 again positive. Repeat blood culture on 07/02 so far negative. Continue with meropenem. Can plan to discharge on ertapenem for overall 14-day course from 07/02. (4) Thrombocytopenia: Stable today. Hemoglobin stable. Could be secondary to sepsis from ESBL E. coli bacteremia but cannot rule out HIT. Hold off on heparin. Monitor hemoglobin. HIT panel sent. (5) MONICA (acute kidney injury): Along with most likely second to dehydration from poor oral intake along with se psis along with possibility of baseline diabetic nephropathy. Resolved today after starting on IV albumin. Continue with IV hydration and IV albumin for now. Continue with Ringer lactate . Monitor BMP daily. Medical reconciliation done for nephrotoxic drugs. Fena-1.6%. Consistent with intrinsic. (6) UTI (urinary tract infection): CT abdomen pelvis appreciated. No obstructive nephropathy. Does have history of bladder cancer with changes related to the same in urinary bladder and nonobstructive renal calculi and left lower pole of kidney. Antibiotics as above. (7) Hyponatremia: Resolved. Secondary to hypovolemic hyponatremia. Continue with normal saline at 100 cc/h. Monitor BMP daily. (8) Hyperkalemia: Resolved. (9) Type 2 diabetes mellitus: HbA1c 6.9. Noncompliant to glipizide and Sitagliptin at home. Continue with insulin sliding scale. Carb consistent renal nondialysis diet. (10) Generalized weakness: Most likely in setting of acute kidney injury, sepsis and dehydration. TSH, vitamin B12 and folate within normal limits. Appreciate PT evaluation. We will request for patient to be out of bed to chair and for be sitting in the chair for as long as possible today. (11) Acute dehydration: Gentle rehydration. Follow chemistries requested for electrolytes including hyponatremia. (12) Major depressive disorder: Getting worse since passing away of life. Patient getting sleepy. Continue with Celexa 10 mg oral daily. Change donepezil to 5 mg nightly. Sitter at bedside. Appreciate psych recommendations. Given the acuteness of the illness patient would benefit from good social support as an outpatient to prevent from worsening. Discussed in detail with family members. Requesting patient to be placed to SNF. Case management alerted. (13) Transaminitis: Suspect secondary to dehydration, rehydration as above. CT abdomen pelvis negative for liver pathology. (14) Hyperbilirubinemia: Resolved. Suspected secondary to cholestasis secondary to dehydration as above. Hold statin for now. (15) Suicidal ideation: No active ideation as per patient today. Psych consult. Most likely in setting of severe depression. Sitter at bedside. (16) Dementia: (17) High anion gap metabolic acidosis: Resolved. Secondary to starvation ketosis along with acute kidney injury. Continue to monitor. (18) Hypermagnesemia: Gentle IV hydration. Follow-up magnesium requested. 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 (20) Status post lumbar spinal fusion: In April (21) Physical deconditioning: (22) Anorexia: Most likely in setting of severe dementia. Continue with dronabinol twice daily during meals. Continue with encouragement. Protein shakes with each meal. Plan Glaucoma HTN Lumbar stenosis history Hypothyroidism Full code. Renal diabetic nondialysis diet with protein shakes with each meal. Protonix OPD prophylaxis SCDs for DVT prophylaxis PT evaluation. Patient's care discussed in detail with patient daughter at bedside. We discussed that unfortunately he is severely deconditioned and depressed secondary to ongoing infection and social stressors as an outpatient. Discussed in detail psychiatric recommendation. Daughter states she will not be able to take care of him during the day as she has to go to work and is worried that while she is away patient can deteriorate further more over given his physical deconditioning she will not go to take care of it by herself. Daughter states this is the second time patient has done the same since passing of his mother . Discussed in detail that patient is AOx3 and if he continues to have the wishes of not continuing with medical therapy we should consider hospice. Daughter is agreeable. Plan for now is to continue the current treatment. Discharge planning: Given severe depression with possibility of worsening illness as an outpatient and poor social support since passing away of his recently will need to discuss further with patient's family regarding closer monitoring as an outpatient. Patient is severely physically deconditioned requiring extensive physical therapy as per PT evaluation. Plan to discharge to SNF. Care management alerted. Attestations Medical Necessity Statement*: Requires further hospitalization for management of ESBL bacteremia in setting of UTI, severe depression, severe physical deconditioning and anorexia while safe discharge planning is sought. Diagnoses Sepsis A41.9 Sepsis type: Escherichia coli Sepsis acute organ dysfunction status: with acute organ dysfunction Severe sepsis acute organ dysfunction type: acute renal failure Severe sepsis shock status: without septic shock ESBL (extended spectrum beta-lactamase) producing bacteria infection A49.9; Z16.12 E coli bacteremia R78.81; B96.20 Thrombocytopenia D69.6 MONICA (acute kidney injury) N17.9 UTI (urinary tract infection) N39.0 Hyponatremia E87.1 Hyperkalemia E87.5 Type 2 diabetes mellitus E11.9 Generalized weakness R53.1 Acute dehydration E86.0 Major depressive disorder F32.9 Transaminitis R74.01 Hyperbilirubinemia E80.6 Suicidal ideation R45.851 Dementia F03.90 High anion gap metabolic acidosis E87.29 Hypermagnesemia E83.41 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
[2022-07-04 15:58] VITALS: BP 132/64; PULSE 103; RESP 16; TEMP 36.4; O2SAT 90
[2022-07-04 17:19] LABS: Glucose Point of Care 177 mg/dL (70-110)
[2022-07-04 20:00] VITALS: BP 124/63; PULSE 109; RESP 16; TEMP 36.6; O2SAT 90
[2022-07-04] MEDS: donepezil 5 MG Tablet PO (20:23)
[2022-07-04 21:31] LABS: Glucose Point of Care 178 mg/dL (70-110)
[2022-07-05] VITALS (7 sets, daily range): BP systolic 128–154; BP diastolic 66–74; PULSE 77–112; RESP 15–16; TEMP 36.3–36.8; O2SAT 94–100
[2022-07-05] MEDS: meropenem 1,000 MG in sodium chloride 0.9% (plus) 50 ML 100 MG IV ×2 (00:07→13:13)
[2022-07-05 01:09] LABS: Heparin Induced Platelet AB NEGATIVE (NEGATIVE); Patient O.D 0.062
[2022-07-05 05:02] LABS: Basophils % 0.1 %; Eosinophils % 0.3 %; Hematocrit 33.1 % (42.0-52.0); Hemoglobin 9.9 g/dL (11.7-16.6); Lymphocytes % 9.1 %; Mean Corpuscular HGB Conc 29.9 g/dL (30.0-36.0); Mean Corpuscular Volume 100.3 fl (80-94); Mean Platelet Volume 12.7 fL (7.4-10.4); Monocytes # 0.9 10^3/uL (0.2-0.9); Monocytes % 8.1 %; Neutrophils # 8.94 10^3/uL (1.8-7.7); Neutrophils % 80.9 %; Nucleated Red Blood Cells % 0 %; Platelet Count 55 10^3/cmm (130-400); Red Cell Distribution Width 16.8 % (12.1-15.1)
[2022-07-05 05:26] LABS: Alanine Aminotransferase 13 U/L (0-41); Albumin Level 3.4 g/dL (3.5-5.2); Alkaline Phosphatase 109 U/L (40-130); Anion Gap 7.2 (5-19); Aspartate Amino Transferase 13 U/L (0-40); Blood Urea Nitrogen 35 mg/dL (8-23); Calcium 8.7 mg/dL (8.5-10.5); Carbon Dioxide 30 mmol/L (22-29); Chloride 114 mmol/L (98-107); Globulin 1.9 g/dL (1.3-4.6); Glucose 161 mg/dL (65-115); Osmolality Calculated 315 mOsm/kg (285-295); Potassium 4.2 mmol/L (3.5-5.1); Sodium 147 mmol/L (136-145); Total Bilirubin 0.7 mg/dL (0.15-1.2); Total Protein 5.3 g/dL (6.6-8.7)
[2022-07-05] MEDS: dronabinol 2.5 mg Capsule PO (06:11)
[2022-07-05 06:41] LABS: Glucose Point of Care 163 mg/dL (70-110)
[2022-07-05] MEDS: insulin lispro 100 unit/1 mL SUBCUT ×2 (09:23→13:13)
[2022-07-05] MEDS: citalopram 20 mg Tablet 10 MG PO (09:24)
[2022-07-05] MEDS: levothyroxine 100 mcg Tablet PO (09:24)
[2022-07-05] MEDS: sennosides-docusate Tablet 1 TAB PO (09:24)
[2022-07-05] MEDS: gabapentin 100 mg Capsule PO (09:24)
[2022-07-05] MEDS: sodium chloride 0.9% 1,000 ML 100 ML IV (09:25)
[2022-07-05] MEDS: pantoprazole 40 mg SDV IVP (09:26)
[2022-07-05] MEDS: albumin 25 G/100 ML BAG 60 G IV (09:26)
[2022-07-05] MEDS: HYDROcodone-acetaminophen 5-325 mg Tablet 1 TAB PO (10:36)
[2022-07-05 11:49] LABS: Glucose Point of Care 162 mg/dL (70-110)
--- NOTE | 2022-07-05 12:37 | PC.SOCIAL ---
IMM Updated Updated pt of IMM. No questions voiced Provided pt a copy. Initialed, dated, & timed copy in chart.
--- NOTE | 2022-07-05 13:27 | PM.DCS ---
Discharge Providers Date of Admission: 06/28/22 20:31 Date of Discharge: July 05, 2022 Attending Provider at Admission: Meet Chavez Attending Provider at Discharge: Chas English MD Primary Care Provider: Jadiel Wheat Diagnoses at Discharge Discharge Diagnosis (1) Sepsis: Status: Acute Qualifiers: Sepsis acute organ dysfunction status: with acute organ dysfunction Sepsis type: Escherichia coli Severe sepsis acute organ dysfunction type: acute renal failure Severe sepsis shock status: without septic shock (2) ESBL (extended spectrum beta-lactamase) producing bacteria infection: Status: Acute (3) E coli bacteremia: Status: Acute (4) Thrombocytopenia: Status: Acute (5) MONICA (acute kidney injury): Status: Acute (6) UTI (urinary tract infection): Status: Acute (7) Hyponatremia: Status: Acute (8) Hyperkalemia: Status: Acute (9) Type 2 diabetes mellitus: Status: Acute (10) Generalized weakness: Status: Acute (11) Acute dehydration: Status: Acute (12) Major depressive disorder: Status: Acute (13) Transaminitis: Status: Acute (14) Hyperbilirubinemia: Status: Acute (15) Suicidal ideation: Status: Acute (16) Dementia: Status: Acute (17) High anion gap metabolic acidosis: Status: Acute (18) Hypermagnesemia: Status: Acute (19) 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 Lives by himself, his daughter checks up on him, he has not been getting out from his recliner.? Has not been eating, no appetite at all.? Came into ER for evaluation.? In ER noted with leukocytosis, hyponatremia 126, hyperkalemia 5.9, metabolic acidosis, anion gap 22.9, bicarb 21, BUN 91, creatinine 2.6, prior creatinine 0.8 on 06/16 this year.? Glucose 272.? Magnesium 2.4.? T. bili 1.7, AST 158, ALT 128, alk phos 226.? Albumin 2.3.? Urine WBC too numerous to count.? 80-100 RBC.? 4+ bacteria.? 1+ ketones.? 3+ protein. He is having some left lower quadrant abdominal discomfort.? CT abdomen pelvis with suggestion of mild adrenal hyperplasia.? Small nonobstructing renal calculus lower pole left kidney.? Mild colonic diverticulosis without diverticulitis.? 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 Abnormal appearance of urinary bladder with previous bladder carcinoma, with thickened wall with calcification.? Postsurgical hardware L4-S2 related to prior fusion and stabilization regarding bony changes.? Small umbilical hernia of fat and mild inguinal hernia of fat without bowel content. He confirms that he has been quite depressed recently.? He feels it has been a big problem for him affecting his functioning.? He has thought about ending his life.? When questioned about any plans or methods, states that he would use a knife on himself.? He states that he would not tell anybody if he were to do it. His daughter when asked also states that he has been forgetful, although no formal history of dementia, she states her mother had reported him becoming more forgetful before her passing. Patient was admitted to [facility] for acute encephalopathy, sepsis secondary to ESBL E. coli UTI and bacteremia. Patient received broad-spectrum antibiotic therapy, overall clinically improved in terms will be discharged on a total of 10 remaining days of ertapenem 1 g IV every 24 hours During his hospitalization, patient had severe depression, getting worse since his , managed with Celexa, Had high anion gap metabolic acidosis, likely starvation ketosis along with MONICA, hyperkalemia during hospitalization, resolving on discharge Had anorexia, most likely in the setting of severe dementia, severe depression Physical Exam Const: COMMON NORMALS: no acute distress ORIENTATION/CONSCIOUSNESS: Yes awake and Yes oriented to person; not oriented to place and not oriented to time Resp: COMMON NORMALS: normal respiratory effort, No retractions, No use of accessory muscles and clear to auscultation bilaterally AUSCULTATION: clear to auscultation bilaterally Cardio: COMMON NORMALS: regular rate, regular rhythm, S1 normal heart sound present and S2 normal heart sound present RATE: regular rate RHYTHM: regular rhythm HEART SOUNDS: S1 normal heart sound present and S2 normal heart sound present GI: COMMON NORMALS: Normal to inspection, nondistended, normoactive bowel sounds present and non-tender Extremity: COMMON NORMALS: no pedal edema Neuro: SENSORIUM/ORIENTATION: Yes oriented to person, No oriented to place and No oriented to time Urinary Catheter Management: Vincent: Cath Placed During This Visit: yes Reason for Continuing Indwelling Catheter: Other Urinary Catheter Date of Insertion: 06/28/22 Urinary Catheter Time of Insertion: 19:44 Discharge Data Studies Completed and Pending Completed Studies During Hospitalization Category Date Time Status CT abdomen pelvis wo con [id number] Stat Cat Scan 06/28/22 18:38 Completed CXRP [XR chest 1V portable [id number]] Stat Exams 06/28/22 18:26 Completed XR abdomen 1V* [id number] Routine Exams 07/01/22 11:57 [place] [id number] Routine Ultrasound 06/28/22 22:01 Completed Pending at discharge Category Date Time Status Blood Culture AM LABS Lab 07/02/22 04:00 Results Heparin Induced Thrombocytopen Stat Lab 07/01/22 12:17 Results VBG [Venous Blood Gas] Routine Lab 06/28/22 22:00 Results Radiology Impressions Chest X-Ray 06/28/22 18:26 IMPRESSION: Stable appearance of the chest with prior exam, without acute cardiopulmonary abnormality. Abdomen/Pelvis CT 06/28/22 18:38 IMPRESSION: 1. Suggestion of mild adrenal hyperplasia. 2. Small nonobstructing renal calculus lower pole left kidney. 3. Mild colonic diverticulosis, particularly sigmoid colon, without CT findings of diverticulitis. 4. 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 Abnormal appearance of the urinary bladder in this patient with previous bladder carcinoma, with thickened wall with calcification. 6. Postsurgical hardware L4 through S2 related to prior fusion and stabilization regarding bony changes as noted above. 7. Small umbilical hernia of fat and mild inguinal hernias of fat without bowel content. Abdomen X-Ray 07/01/22 11:57 IMPRESSION: No acute findings. Laboratory Results WBC 11.0 10^3/uL (4.0-10.0) H 07/05/22 04:55 RBC 3.30 10^6/uL (4.1-5.3) L 07/05/22 04:55 Hgb 9.9 g/dL (11.7-16.6) L 07/05/22 04:55 Hct 33.1 % (42.0-52.0) L 07/05/22 04:55 MCV 100.3 fl (80-94) H 07/05/22 04:55 MCH 30.0 pg (28.0-34.0) 07/05/22 04:55 MCHC 29.9 g/dL (30.0-36.0) L 07/05/22 04:55 RDW 16.8 % (12.1-15.1) H 07/05/22 04:55 Plt Count 55 10^3/cmm (130-400) L 07/05/22 04:55 MPV 12.7 fL (7.4-10.4) H 07/05/22 04:55 Neut % (Auto) 80.9 % 07/05/22 04:55 Lymph % (Auto) 9.1 % 07/05/22 04:55 Waldo % (Auto) 8.1 % 07/05/22 04:55 Eos % (Auto) 0.3 % 07/05/22 04:55 Baso % (Auto) 0.1 % 07/05/22 04:55 Neut # (Auto) 8.94 10^3/uL (1.8-7.7) H 07/05/22 04:55 Lymph # (Auto) 1.0 10^3/uL (0.8-4.8) 07/05/22 04:55 Waldo # (Auto) 0.9 10^3/uL (0.2-0.9) 07/05/22 04:55 Eos # (Auto) 0.0 10^3/uL (0.0-0.8) 07/05/22 04:55 Baso # (Auto) 0.0 10^3/uL (0.0-0.1) 07/05/22 04:55 Nucleated RBC % (auto) 0 % 07/05/22 04:55 Nucleated RBCs # 0.0 /100WBC 07/05/22 04:55 Heparin Require Pat 0.062 07/01/22 12:17 Specimen Type Venous 06/28/22 22:00 Angelo Test Pos 06/28/22 22:00 VBG pH 7.39 (7.32-7.42) 06/28/22 22:00 VBG pCO2 39.9 mmHg (41-51) L 06/28/22 22:00 VBG pO2 48.3 mmHg (25-40) H 06/28/22 22:00 VBG HCO3 24.0 mmol/L (24-28) 06/28/22 22:00 VBG Base Excess -1.0 mmol/L (-3.0-3.0) 06/28/22 22:00 VBG Hematocrit 43.9 % (42-52) 06/28/22 22:00 Litigation Examiner ID Je 06/28/22 22:00 Sodium 147 mmol/L (136-145) H 07/05/22 04:55 Potassium 4.2 mmol/L (3.5-5.1) 07/05/22 04:55 Chloride 114 mmol/L (98-107) H 07/05/22 04:55 Carbon Dioxide 30 mmol/L (22-29) H 07/05/22 04:55 Anion Gap 7.2 (5-19) 07/05/22 04:55 BUN 35 mg/dL (8-23) H 07/05/22 04:55 Creatinine 1.1 mg/dL (0.7-1.2) 07/05/22 04:55 GFR Calculation Not Reportable 07/05/22 04:55 Glucose 161 mg/dL (65-115) H 07/05/22 04:55 POC Glucose 162 mg/dL (70-110) H 07/05/22 11:45 Estimat Average Glucose 151 06/30/22 02:18 Hemoglobin A1c 6.9 % (4.0-6.0) H 06/30/22 02:18 Calculated Osmolality 315 mOsm/kg (285-295) H 07/05/22 04:55 Calcium 8.7 mg/dL (8.5-10.5) 07/05/22 04:55 Phosphorus 4.2 mg/dL (2.5-4.5) 06/29/22 04:32 Magnesium 2.5 mg/dL (1.7-2.3) H 06/29/22 04:32 Iron 27 ug/dL (59-158) L 06/29/22 10:39 TIBC 143 mcg/dl 06/29/22 10:39 % Saturation 18.8 % (20-50) L 06/29/22 10:39 Unsat Iron Binding 116 ug/dL (112-347) 06/29/22 10:39 Total Bilirubin 0.7 mg/dL (0.15-1.2) 07/05/22 04:55 AST 13 U/L (0-40) 07/05/22 04:55 ALT 13 U/L (0-41) 07/05/22 04:55 Alkaline Phosphatase 109 U/L (40-130) 07/05/22 04:55 Ammonia 52 umol/L (16-60) 06/30/22 02:18 Total Protein 5.3 g/dL (6.6-8.7) L 07/05/22 04:55 Albumin 3.4 g/dL (3.5-5.2) L 07/05/22 04:55 Globulin 1.9 g/dL (1.3-4.6) 07/05/22 04:55 Triglycerides 155 mg/dL (0-150) H 06/30/22 02:18 Cholesterol 68 mg/dL (0-200) 06/30/22 02:18 LDL Cholesterol, Calc 27 mg/dL (50-129) L 06/30/22 02:18 Total VLDL Cholesterol 31 mg/dL (0-30) H 06/30/22 02:18 HDL Cholesterol 10 mg/dL (60-100) L 06/30/22 02:18 Cholesterol/HDL Ratio 6.80 mg/dL (1.0-5.00) H 06/30/22 02:18 Lipase 31 U/L (13-60) 06/28/22 17:34 Vitamin B12 1559 pg/mL (232-1245) H 06/29/22 10:39 Folate 9.1 ng/mL (4.5-32.2) 06/29/22 04:32 Procalcitonin 3.64 ng/mL (0-0.5) H 06/29/22 10:39 TSH 3.16 uIU/mL (0.27-4.20) 06/29/22 04:32 Urine Color Other (Yellow) 06/28/22 18:29 Urine Appearance Cloudy (CLEAR) A 06/28/22 18:29 Urine pH 5 (5-7) 06/28/22 18:29 Ur Specific [place] 1.020 (1.005-1.030) 06/28/22 18:29 Urine Protein 3+ (Negative) H 06/28/22 18:29 Urine Glucose (UA) Norm (Normal) 06/28/22 18:29 Urine Ketones 1+ (Negative) H 06/28/22 18:29 Urine Blood 3+ (Negative) H 06/28/22 18:29 Urine Nitrate Negative (Negative) 06/28/22 18:29 Urine Bilirubin Neg (Negative) 06/28/22 18:29 Urine Urobilinogen Neg mg/dL (Negative) 06/28/22 18:29 Ur Leukocyte Esterase 2+ (Negative) H 06/28/22 18:29 Urine RBC 80-100 /hpf (0-2) H 06/28/22 18:29 Urine WBC Too numerous to cnt /hpf (0-5) H 06/28/22 18:29 Ur Eosinophil Smear TNP 06/30/22 14:30 Ur Squamous Epith Cells None /hpf (0-5) 06/28/22 18:29 Amorphous Sediment Not Reportable 06/28/22 18:29 Urine Bacteria 4+ /hpf (NONE) H 06/28/22 18:29 Urine Eosinophils No eosinophils seen 06/30/22 14:30 Ur Random Sodium 43 mmol/L 06/30/22 14:30 Ur Random Potassium 19 mmol/L 06/30/22 14:30 Ur Random Chloride 42 mmol/L 06/30/22 14:30 Urine Creatinine 30 mg/dL (39-259) L 06/30/22 14:30 Serum Ketones Negative (Negative) 06/28/22 22:03 Heparin-induced Ab Negative (NEGATIVE) 07/01/22 12:17 Vitals Last Vital Signs Temp 97.4 F L 07/05/22 12:00 Pulse 77 07/05/22 12:00 Resp 15 07/05/22 12:00 BP 128/68 07/05/22 12:00 Pulse Ox 100 07/05/22 12:00 O2 Del Method 07/05/22 12:00 O2 Flow Rate 4 07/05/22 08:06 Discharge Plan Discharge Patient Disposition: Xfer SNF Condition: Stable Prescriptions: New gabapentin 100 mg Capsule 100 mg PO TID 30 Days Qty: 90 0RF citalopram 20 mg Tablet 10 mg PO DAILY 30 Days Qty: 30 0RF pantoprazole [Protonix] 40 mg tablet,delayed release (DR/EC) 40 mg PO DAILY 30 Days Qty: 30 0RF donepezil 5 mg Tablet 5 mg PO BEDTIME 30 Days Qty: 30 0RF insulin aspart U-100 [Novolog FlexPen U-100 Insulin] 100 unit/mL (3 mL) insulin pen See Rx Instructions .ROUTE .COMPLEX Qty: 15 0RF Rx Instructions: Inject subcu, 3 times daily, after meals, based on low-dose insulin sliding scale ertapenem [Invanz] 1 gram recon soln 1 g IV DAILY 10 Days Qty: 10 0RF Continued latanoprost 0.005 % drops 1 drp ophthalmic (eye) BEDTIME dorzolamide 2 % drops 1 drp ophthalmic (eye) BID Rx Instructions: both eyes meclizine 25 mg tablet 25 mg PO QID levothyroxine 100 mcg capsule 100 mcg PO DAILY Qty: 30 3RF (DME) Intraoperative Neuromonitoring See Rx Instructions .Route .MEDSUPPLY Qty: 1 0RF Rx Instructions: As directed. timolol maleate 0.5 % drops 1 drp ophthalmic (eye) BID Rx Instructions: each eye acetaminophen 325 mg Tablet 325 mg PO Q6H PRN (Reason: Pain) tramadol 50 mg tablet 50 mg PO Q8H PRN (Reason: pain) Qty: 14 0RF lovastatin 40 mg tablet 40 mg PO QPM 30 Days Qty: 30 0RF Discontinued glipizide 2.5 mg tablet extended release 24hr 2.5 mg PO QAM gabapentin 300 mg capsule 300 mg PO BID sodium chloride 1,000 mg Tablet,Soluble 1,000 mg PO BID Qty: 30 0RF Discharge Orders: Discharge Order (Routine); Ordered 07/05/22 Ordered By: Chas English Referrals: [facility] [Outside] Jadiel Wheat [Primary Care Provider] - 7-10 days Discharge Diet: Regular Discharge Activity: Resume usual activity Patient Instructions: Opioid Safety Activity Restrictions/Additional Instructions: - Discharged on Invanz(ertapenem )1 g IV every 24 hours, for 10 remaining days -Check weekly CBCs and CMP and CPK starting 07/07/2022 --Please monitor your blood sugars closely -Monitor your blood sugars 3 times daily as after meals -Please record your blood sugars, and a blood sugar log -For your NovoLog -Please inject blood sugar after meals based on sliding scale provided -Do not inject insulin if you do not eat as hypoglycemia kills -This is a NovoLog sliding scale -Insulin sliding ?fingerstick? Insulin ?141-180?0 units/sq 181-220?2 units/sq ?221-260?4 units/sq ?261-300 6 units/sq ?301-350?8 units/sq ?351-400 10 units/sq > 400? 12 units/sq -If your blood sugar is greater than 500 go to the emergency room -If your blood sugar is less than 60 or at anytime you feel lightheaded or dizzy or diaphoretic or have chest palpitations check your blood sugar, and eat a hard candy or drink orange juice and go immediately to the emergency room -Remember hypoglycemia kills, so if his blood sugar is less than 60 we have to increase it by taking in a sugary meal such as a hard candy or orange juice and go to the emergency room -If you have any questions please call us where here to help - Discharge Attestations Time Spent in Discharge Care*: greater than 30 min Status at Discharge: Cognitive status at discharge: cognitively intact, Behavioral status at discharge: cooperative, Quality Metrics Clinical Quality Measures [ No reported AMI, CVA or VTE this stay] Coding Level of Care Code 87241 Total time (in minutes) for Discharge: 40 Diagnoses Sepsis A41.9 Sepsis acute organ dysfunction status: with acute organ dysfunction Sepsis type: Escherichia coli Severe sepsis acute organ dysfunction type: acute renal failure Severe sepsis shock status: without septic shock ESBL (extended spectrum beta-lactamase) producing bacteria infection A49.9; Z16.12 E coli bacteremia R78.81; B96.20 Thrombocytopenia D69.6 MONICA (acute kidney injury) N17.9 UTI (urinary tract infection) N39.0 Hyponatremia E87.1 Hyperkalemia E87.5 Type 2 diabetes mellitus E11.9 Generalized weakness R53.1 Acute dehydration E86.0 Major depressive disorder F32.9 Transaminitis R74.01 Hyperbilirubinemia E80.6 Suicidal ideation R45.851 Dementia F03.90 High anion gap metabolic acidosis E87.29 Hypermagnesemia E83.41 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
--- NOTE | 2022-07-05 15:06 | PC.NURSE ---
Called report to Catia Gordillo LPN at [facility]
[2022-07-05 16:20] LABS: SARS Covid-2 Antigen Negative (Negative)
[2022-07-07 00:40] LABS: UFH High Dose, 100 IU/ML 1 % release; UFH Low Dose, 0.1 IU/ML 1 % release; UFH Low Dose, 0.5 IU/ML 1 % release; UFH SRA Result NEGATIVE (NEGATIVE)
== END 2022-07-05 15:10 | disposition skilled nursing facility (03) | DRG 871 ==
LOC: ER 20:22 → MEDSURG 21:17
PROVIDERS: Family Medicine; Student in an Organized Health Care Education/Training Program; Admitting Provider Internal Medicine; Emergency Provider Emergency Medicine; PCP Family Medicine; Visit Provider Family Medicine
DX: A41.51 Sepsis due to Escherichia coli [E. coli] (principal); G93.41 Metabolic encephalopathy; N17.9 Acute kidney failure, unspecified; N39.0 Urinary tract infection, site not specified; Z16.12 Extended spectrum beta lactamase (ESBL) resistance; E87.1 Hypo-osmolality and hyponatremia; R45.851 Suicidal ideations; F03.93 Unspecified dementia, unspecified severity, with mood disturbance; E87.20 Acidosis, unspecified; B96.20 Unspecified Escherichia coli [E. coli] as the cause of diseases classified elsewhere; R65.20 Severe sepsis without septic shock; F32.9 Major depressive disorder, single episode, unspecified; E87.5 Hyperkalemia; D69.6 Thrombocytopenia, unspecified; E86.0 Dehydration; E11.65 Type 2 diabetes mellitus with hyperglycemia; T38.3X6A Underdosing of insulin and oral hypoglycemic [antidiabetic] drugs, initial encounter; R74.01 Elevation of levels of liver transaminase levels; E80.6 Other disorders of bilirubin metabolism; E83.41 Hypermagnesemia; H40.9 Unspecified glaucoma; I10 Essential (primary) hypertension; E03.9 Hypothyroidism, unspecified; R53.81 Other malaise; R63.39 Other feeding difficulties; R63.0 Anorexia; Z60.8 Other problems related to social environment; Z68.24 Body mass index [BMI] 24.0-24.9, adult; Z63.4 Disappearance and death of family member; Z98.1 Arthrodesis status; Z87.891 Personal history of nicotine dependence; Z85.51 Personal history of malignant neoplasm of bladder; Z92.3 Personal history of irradiation
CPT/HCPCS: 36415; 36416; 36591; 36592; 36600; 51701; 51702; 71045; 74018; 74176; 80048; 80053; 80061; 81001; 82009; 82140; 82436; 82570; 82607; 82746; 82803; 82962; 83036; 83540; 83550; 83690; 83735; 84100; 84133; 84145; 84300; 84443; 85025; 85999; 87040; 87077; 87086; 87150; 87186; 87205; 87426; 87641; 92523; 92524; 92526; 92610; 93005; 93970; 96365; 96372; 96375; 97110; 97116; 97162; 97167; 97530; 97535; 99285; C9113; J0696; J1644; J1815; J2185; J7030; J7120; P9046; Q0167